=== PATIENT | male | born 1950 | race Caucasian/White ===

== ENCOUNTER → 2017-05-20 15:59 | Outpatient (CLI) | payer MEDICARE, SELFPAY ==
--- NOTE | 2017-05-20 16:07 | RAD_ITS ---
STUDY: X-RAY - ORBITS REASON FOR EXAM: Male, 66 years old. This study is being performed as a clearance examination for exclusion of orbital metal, prior to the performance of an MRI examination. TECHNIQUE: 2 view(s) of the orbits were obtained. COMPARISON: None. FINDINGS: Normal bilateral orbits without a metallic orbital foreign body. Normal visualized facial bones. Normal paranasal sinuses. The soft tissue structures are unremarkable. RAD/Orbits for Foreign Body IMPRESSION: No demonstrated metallic orbital foreign body. The patient is cleared for an MRI examination. Electronically Signed: Geovany Schultz, at 16:37 EST Tel , Service support ,
--- NOTE | 2017-05-20 16:15 | MRI_ITS ---
MR Brain W/O Contrast INDICATION: TREMORS,FALLS,BALANCE ISSUES COMPARISON: None TECHNIQUE: Multiplanar multisequence MRI examination of the brain without contrast. FINDINGS: There is no evidence of restricted diffusion to suggest acute ischemia/infarction. Ventricular system is normal in size and symmetric. Cortical sulci, sylvian fissures, and basal cisterns are well seen. Weinberg-white matter junction is normal. Midline structures and craniocervical junction are normal. The cerebellopontine angles are normal and symmetric. Supra-and infratentorial brain parenchyma demonstrates normal signal. There is no evidence of parenchymal microhemorrhage, mass effect or midline shift, or abnormal extra-axial collection. Flow-voids of the chilkoot of Weeks vascularity are well seen. The paranasal sinuses and mastooid air cells are clear. Sagittal T1 weighted sequence includes the craniocervical junction and demonstrates narrowing of the cervical spinal canal at C2-3, which may be due to chronic degenerative changes at the atlantoaxial articulation, consider further evaluation with MRI of the cervical spine. MRI/Brain without Contrast IMPRESSION: Unremarkable noncontrast MRI examination of the brain. Degenerative changes at the visualized upper cervical spine with questionable cervical spinal canal narrowing at C2-3, consider further evaluation with MRI cervical spine. at 2225 Reported and signed by: Verónica Griffiths MD Electronically Signed: Verónica Griffiths MD at 21:24 EST Tel , Service support ,
== END ==
PROVIDERS: Family Provider Internal Medicine; PCP Internal Medicine; Visit Provider Psychiatry & Neurology Neurology
DX: R25.1 Tremor, unspecified (principal); R29.6 Repeated falls; R26.89 Other abnormalities of gait and mobility
CPT/HCPCS: 70030; 70551

== ENCOUNTER 2017-12-21 21:15 | Emergency (ER) | payer MEDICARE, SELFPAY ==
[2017-12-21 21:15] VITALS: BP 145/98; PULSE 71; RESP 20; TEMP 37.2; O2SAT 93; BMI 19.6
[2017-12-21] MEDS: Mag Hydrox/Al Hydrox/Simeth 30 ML UDC PO (21:44)
[2017-12-21] MEDS: Ondansetron 4 MG/2 ML Vial IV (21:44)
[2017-12-21] MEDS: Morphine 4 MG/ML Syringe IV ×2 (21:44→22:43)
[2017-12-21 21:58] LABS: Absolute Lymphocyte Count 2.79 X10^3/ul (0.83-4.51); Absolute Neutrophil Count 8.2 X10^3/uL (2.0-7.7); Basophil% 0.8 % (0-1); Eosinophils% 3.1 % (0-5); Hematocrit 42.5 % (40-54); Hemoglobin 13.9 g/dl (13.0-16.5); Lymphocyte # 2.79 X10^3/ul (4.0); Mean Corp Hgb Conc 32.7 g/gl (32-36); Mean Corpuscular Hgb 31.2 pg (27.0-32.0); Mean Corpuscular Volume 95.5 fL (80-94); Mean Platelet Vol. 9.2 fl (6.2-12.0); Monocyte# 1.16 X10^3/uL; Monocyte% 9.1 % (0-10); Neutrophil # 8.23 X10^3/uL (2.7-7.7); Neutrophil % 64.8 % (47-70); Platelet Count 258 K/mm3 (150-450); RBC Distribution Width CV 13.5 % (11.6-14.6); RBC Distribution Width SD 47.2 fl (35.1-43.9); Red Blood Count 4.45 M/mm3 (4.6-6.2); White Blood Count 12.7 K/mm3 (4.4-11.0)
[2017-12-21 21:59] LABS: POSITIVE COUNT NO; POSITIVE DIFFERENTIAL NO; POSITIVE MORPHOLOGY NO
[2017-12-21 22:05] LABS: ALB/GLOB Ratio 0.9 RATIO (0.9-2.4); AST(SGOT) 13 U/L (15-37); Alanine Aminotransfer ALT/SGPT 14 U/L (16-61); Albumin, Serum 3.6 g/dL (3.2-5.0); Alkaline Phosphatase 105 U/L (45-117); Anion Gap 5 (5-15); BUN 8 mg/dL (7-18); BUN/Creat Ratio 6.3 RATIO (10-20); Calcium,Total 8.6 mg/dL (8.5-10.1); Chloride 106 mmol/L (98-107); Creatinine, Serum 1.26 mg/dL (0.70-1.30); EST Glomerular Filtration Rate 61 mL/min (>60); Est Glom Filt Rate - Afr Amer 74 mL/min (>60); Estimated Creatinine Clearance 53.65 ml/min; Globulin 3.9 g/dL (2.2-4.2); Glucose 86 mg/dL (74-106); Lipase 249 U/L (73-393); Potassium 3.8 mmol/L (3.5-5.1); Protein, Total 7.5 g/dL (6.4-8.2); Sodium Level 140 mmol/L (136-145)
--- NOTE | 2017-12-21 22:25 | ED.DCSUM_ITS ---
- ER Visit Summary Date of Service: 12/21/17 Chief Complaint: Epigastric pain History of Present Illness: The patient is a 67 M who is complaining of epigastric and left upper quadrant pain. The chief complaints as flank pain but patient's pain is as stated above. He has chronic recurrent epigastric pain. No fever or chills. This pain seems to be somewhat worse. There is no shortness of breath or chest pain. This started 3-4 days ago. No diarrhea. No constipation. He does have a history of bowel surgeries after an inadvertent penetrating trauma to his abdomen. Physical Examination: He appears in some distress Moist mucous membranes, no obvious facial deformity No C-spine tenderness supple neck. Regular rate and rhythm without any obvious murmurs Clear lungs bilaterally speaking in full sentences without any obvious respiratory distress Abdomen soft with epigastric tenderness, some tenderness in the left upper quadrant, no guarding or rebound Moves all extremities without any difficulty or pain. Skin does not show any obvious rashes or lesions, no trauma. Alert oriented ?3 with no gross focal deficit Emergency Department Course and Treatment: Patient has an unremarkable workup including CT of the abdomen and pelvis he is given analgesia and antacids his symptoms improved and be discharged in stable condition. I told him he may need to follow-up with GI. Disposition: [Discharge stable condition Impression: Epigastric pain This note was generated with Check-Cap dictation software. It may contain incorrect words, spelling, and punctuation that were not noted in review of the chart prior to signing ED Disposition - Plan for ED Patient: Disposition: Home or Assisted Living Chief Complaint: Flank Pain Instructions: Abdominal Pain Referrals: Ale Pepe MD [Primary Care Provider] - 3-5 Days
[2017-12-21 22:47] VITALS: BP 158/96; PULSE 75; RESP 15; O2SAT 95
[2017-12-21 23:13] VITALS: BP 145/88; PULSE 80; RESP 16; O2SAT 96
== END 2017-12-21 23:14 | disposition home or self-care (01) ==
PROVIDERS: Emergency Provider Emergency Medicine; Family Provider Internal Medicine; PCP Internal Medicine
DX: R10.13 Epigastric pain (principal); I10 Essential (primary) hypertension; E78.00 Pure hypercholesterolemia, unspecified; K21.9 Gastro-esophageal reflux disease without esophagitis; Z79.899 Other long term (current) drug therapy; Z72.0 Tobacco use
CPT/HCPCS: 74176; 80053; 83690; 84484; 85025; 88307; 96365; 96375; 96376; 99285; A4216; J2405; J3490

== ENCOUNTER → 2018-03-14 12:08 | Outpatient (CLI) | payer MEDICARE, SELFPAY ==
[2018-03-13 16:09] VITALS: BMI 19.6
[2018-03-14 12:14] LABS: Bacteria 0 SEEN /hpf (None Seen); Mucous, Urine 0 SEEN /hpf (<or=2+); Red Blood Cells-Urine 0 SEEN /hpf (0-5); Squamous Epithelial Cells - UA 0 SEEN /hpf (0-5); White Blood Cells 0 SEEN /hpf (0-5)
[2018-03-14 13:14] LABS: AST(SGOT) 11 U/L (15-37); Alanine Aminotransfer ALT/SGPT 14 U/L (16-61); Albumin, Serum 3.6 g/dL (3.2-5.0); Alkaline Phosphatase 110 U/L (45-117); Anion Gap 6 (5-15); BUN 11 mg/dL (7-18); Calcium,Total 8.5 mg/dL (8.5-10.1); Chloride 111 mmol/L (98-107); Cholesterol 163 mg/dL (200); EST Glomerular Filtration Rate 71 mL/min (>60); Est Glom Filt Rate - Afr Amer 86 mL/min (>60); Globulin 3.6 g/dL (2.2-4.2); Glucose 98 mg/dL (74-106); High Density Lipoprotein 38 mg/dL; Potassium 3.9 mmol/L (3.5-5.1); Protein, Total 7.2 g/dL (6.4-8.2); Sodium Level 143 mmol/L (136-145); Triglycerides 174 mg/dL; Very Low Density Lipoprotein 35 mg/dL (5-40)
[2018-03-14 13:41] LABS: Color, Urine Yellow (Yellow); Glucose, Dipstick Normal (Normal); Ketone-Dipstick Negative (Negative); Leukocyte Esterase-Dipstick Negative /ul (Negative); Nitrite-Dipstick Negative (Negative); Occult Blood-Urine Negative /ul (Negative); Protein-Dipstick Negative (Negative); Specific Gravity, Urine 1.015 (1.002-1.030); Urine Bilirubin Dipstick Negative (Negative); Urine Clarity Clear (Clear); Urine Urobilinogen Normal (Normal)
--- OUTSIDE RECORDS SUMMARY | 2018-05-09 10:56 | XMS RPT_ITS ---
:1950 Author Organization OHIP Care Team Providers Name Role Phone Ceferino Pedroza Attending Unavailable Ceferino Pedroza Referring Unavailable Oleghe, Efewongbe Primary Care Unavailable Zane Barbosa SUPPLEMENTAL MANAGER-C Attending Unavailable Oleghe, Efewongbe Referring Unavailable Oleghe, Efewongbe Primary Care Unavailable Zane Barbosa SUPPLEMENTAL MANAGER-C Attending Unavailable Zane Barbosa SUPPLEMENTAL MANAGER-C Referring Unavailable Oleghe, Efewongbe Primary Care Unavailable Ceferino Pedroza Attending Unavailable Oleghe, Efewongbe Primary Care Unavailable Oleghe, Efewongbe Primary Care Unavailable Surendra Cordova Attending Unavailable Oleghe, Efewongbe Attending Unavailable Oleghe, Efewongbe Referring Unavailable Oleghe, Efewongbe Attending Unavailable Oleghe, Efewongbe Referring Unavailable Oleghe, Efewongbe Primary Care Unavailable IMCA Referring Unavailable IMCA Referring Unavailable IMCA Referring Unavailable IMCA Primary Care Unavailable IMCA Referring Unavailable IMCA Primary Care Unavailable SEYMOUR CANCHOLA Admitting Unavailable SEYMOUR CANCHOLA Attending Unavailable SEYMOUR CANCHOLA Referring Unavailable SEYMOUR CANCHOLA Attending Unavailable GEOFF, SEYMOUR Referring Unavailable GEOFF, SEYMOUR Attending Unavailable GEOFF, SEYMOUR Referring Unavailable MAYELA SHELTON (PA) Referring Unavailable KYLEE VALDIVIA (PA) Attending Unavailable GEOFF, SEYMOUR Referring Unavailable GEOFF, SEYMOUR Attending Unavailable GEOFF, SEYMOUR Referring Unavailable GEOFF, SEYMOUR Referring Unavailable PROBLEMS PROBLEMS DATE TYPE CONDITION / CODE ATTENDING STATUS SOURCE 03/13/2018 Unknown I10 - Essential Oleghe, Active Keith (primary) [facility] hypertension / Hospital I10(ICD-10) Repository 03/13/2018 Unknown R35.0 - Frequency Oleghe, Active [facility] of micturition / [facility] R35.0(ICD-10) Hospital Repository 03/13/2018 Unknown Z23 - Encounter for Oleghe, Active [facility] immunization / [facility] Z23(ICD-10) Hospital Repository 08/15/2017 Active Pain in right NA Active [facility] shoulder / [facility] [place] M25.511(ICD-10) Repository 08/15/2017 Active Other chronic pain NA Active [facility] / G89.29(ICD-10) [facility] [place] Repository 08/15/2017 Active Impingement NA Active [facility] syndrome of right [facility] [place] shoulder / Repository M75.41(ICD-10) 07/23/2017 Unknown G62.9 - Kasia, Active [facility] Polyneuropathy, Ceferino S. Community unspecified / Hospital G62.9(ICD-10) Repository 07/23/2017 Unknown R20.0 - Anesthesia Kasia, Active [facility] of skin / [facility] S[facility] Community R20.0(ICD-10) Hospital Repository 07/23/2017 Unknown R20.2 - Paresthesia Kasia, Active [facility] of skin / [facility] R20.2(ICD-10) Hospital Repository 07/05/2017 Active Unspecified SEYMOUR CANCHOLA Active [facility] disorder of Other [place] synovium and Repository tendon, left upper arm / M67.922(ICD-10) 07/01/2017 Active Encounter for other NA Active [facility] preprocedural [facility] [place] examination / Repository Z01.818(ICD-10) 06/24/2017 Active Pain in left NA Active [facility] shoulder / [facility] M25.512(ICD-10) Repository 06/24/2017 Active Unspecified rotator NA Active [facility] cuff tear or [facility] [place] rupture of left Repository shoulder, not specified as traumatic / M75.102(ICD-10) 06/12/2017 Unknown J44.9 - Chronic Barbosa, Zane Active [place] obstructive SUPPLEMENTAL MANAGER-C [facility] pulmonary disease, Hospital unspecified / Repository J44.9(ICD-10) 06/12/2017 Unknown F17.210 - Nicotine Barbosa, Zane Active [facility] dependence, SUPPLEMENTAL MANAGER-C Community cigarettes, Hospital uncomplicated / Repository F17.210(ICD-10) 06/12/2017 Unknown R06.00 - Dyspnea, Barbosa, Zane Active [facility] unspecified / SUPPLEMENTAL MANAGER-C Community R06.00(ICD-10) Hospital Repository 06/10/2017 Active Unknown / SEYMOUR CANCHOLA Active [facility] UNK(Unknown) [facility] [place] Repository 06/10/2017 Active Pain, unspecified / NA Active [facility] R52(ICD-10) [facility] [place] Repository 2017 Unknown R25.1 - Tremor, Kasia, Active [place] unspecified / C[facility]erino S[facility] Community R25.1(ICD-10) Hospital Repository PROCEDURES PROCEDURES No Procedure Records FoundRESULTS RESULTS INTERNAL MEDICINE Observed: 03/14/2018 Status: F Source: [facility] OFFICE VISIT 1:20 PM [facility] REPOS[facility] [address] [place] [address] [place] [address] OFFICE VISIT Date of Service: 03/13/18 MR#: [id number] Acct: [id number] Name: BRIANNA POTTS Diane Rep #: [id number] : 1950 Provider: Ale Pepe MD Age/Sex: 67/M Location: [facility] [place] Status: Signed Intake Vital Signs03/13/18 Body Mass Index (BMI) 19.6 03/13/18 Height 6 ft 03/13/18 Weight: 160 lb Intake Visit Reasons: FU Chief Complaint: follow up Tank Worker Required: No Accompanied by: None Is patient in pain?: Yes (esophagus/acid reflex) Pain scale (1-10): 8 Allergies codeine Allergy (Verified 12/21/17 21:19) Swelling of face and fingers ketorolac tromethamine [From Toradol] Adverse Reaction (Verified 12/21/17 21:19) Nausea oxycodone HCl [From Percocet] Adverse Reaction (Verified 12/21/17 21:19) Upset Stomach sucralfate [From Carafate] Adverse Reaction (Verified 12/21/17 21:19) Nausea tramadol HCl [From Ultram] Adverse Reaction (Verified 01/11/17 11:58) Nausea Medications traZODone [Desyrel] 100 - 200 mg PO QHS PRN 02/10/13 [History Confirmed 06/12/17] Lamotrigine [Lamictal] 150 mg PO QHS 07/08/13 [History Confirmed 06/12/17] Hydrocodone Bitart/Apap 5-325 [Squires 5/325] 1 - 2 tab PO TID PRN 01/11/17 [History Confirmed 06/12/17] Venlafaxine XR [Effexor Xr] 150 mg PO QHS 01/11/17 [History Confirmed 06/12/17] lisinopril 10 mg tablet 10 mg PO DAILY #90 tab 04/05/17 [Rx Confirmed 06/12/17] albuterol sulfate HFA 90 mcg/actuation aerosol inhaler 1 puff INHALATION Q6H PRN #1 inh 06/12/17 [Rx Confirmed 06/12/17] budesonide-formoterol HFA 160 mcg-4.5 mcg/actuation aerosol inhaler 2 puff INHALATION BID #1 inh 06/12/17 [Rx Confirmed 06/12/17] carbidopa ER 25 mg-levodopa 100 mg tablet,extended release 1 tab PO TID tab 06/12/17 [History Confirmed 06/12/17] esomeprazole magnesium 40 mg capsule,delayed release 20 mg PO DAILY #90 cap 06/12/17 [Rx Confirmed 06/12/17] memantine 10 mg tablet 10 mg PO BID 06/12/17 [History Confirmed 06/12/17] propranolol XL 120 mg capsule,extended release 24 hr 120 mg PO QDAY 06/12/17 [History Confirmed 06/12/17] gabapentin 250 mg/5 mL oral solution 800 mg PO TID #1440 ml 02/07/18 [Rx] hydrochlorothiazide 12.5 mg capsule 12.5 mg PO QDAY #90 cap 03/13/18 [Rx Confirmed 03/13/18] [facility] Medical History Bipolar 1 disorder (Chronic) Surgical History H/O abdominal surgery (Acute) History of appendectomy (Acute) History of cervical spinal surgery (Acute) History of rotator cuff surgery (Acute) history of 4 knee surgeries (Acute) history of hand and wrist surgery (Acute) history of three hernia repairs (Acute) Family History Uncle Cancer Father Cancer prostate COPD (chronic obstructive pulmonary disease) Mother COPD (chronic obstructive pulmonary disease) Hypertension Social History Smoking Status: Current every day smoker alcohol intake: never substance use type: does not use what type of physical activity do you participate in: walking frequency: daily HPI HPI Chief Complaint: follow up Details: BRIANNA POTTS, is a 67 M who presents to the office today for follow-up of his chronic medical conditions. He has not been seen here in several months. He is concerned about increased urinary frequency and increased thirst. This is said to have been ongoing for a couple of months. Initially thought to be due to his hydrochlorothiazide however symptoms have persisted even after discontinuing. He denies blood in his urine or pain on urination. He denies any other feeling of unwell. He is also concerned about left fifth toe numbness which has been progressively worsening. In his words he feels his toe will fall off and he will not feel it. He denies any known history of peripheral arterial disease. He however continues to smoke. Blood pressure is slightly elevated during his visit at 148/86 however he is currently only on lisinopril and propranolol after discontinuing his hydrochlorothiazide. He continues to follow-up with neurology due to his history of Parkinson's disease. Patient states that his symptoms are worsening despite medication adjustments. ROS Const Constitutional: No body ache, chills, fatigue, fever(s), frequent falls, headache(s), weight change, sleep problems, change in appetite, snoring, excessive sweating or weakness Eyes Eyes: No blurry vision, change in vision, eye pain or light sensitivity ENT ENT: No headache(s), abnormal hearing, ear pain, tinnitus, nasal congestion, nasal discharge, sore throat or neck pain Resp Respiratory: No snoring, cough, shortness of breath or wheezing Cardio Cardiology: No excessive sweating, chest pain at rest, chest pain with exertion, shortness of breath, dyspnea on exertion, orthopnea, palpitations or lightheadedness Gastro GI: Positive for abdominal pain; no change in bowel habits, diarrhea, constipation, vomiting, nausea/dyspepsia or cramping Musc Musculoskeletal: Positive for numbness; no neck pain, abnormal walking, joint pain, back pain, limited range of motion or tingling Skin Skin: No redness, dry skin, itching, lesions, wounds or rash Neuro Neurology: Positive for numbness; no frequent falls, headache(s), weakness, abnormal hearing, abnormal walking, tingling, abnormal speech, dizziness or memory loss Psych Psychiatric: No change in appetite, No memory loss, No anxiety, No depression, No Thoughts of harming yourself/Others Endo Endocrine: Positive for cold intolerance and increased thirst/drinking; no fatigue, excessive sweating, heat intolerance, increased hunger or flushing Aller/Imm Allergy/Immunologic: No wheezing, itchy eyes, seasonal allergy symptoms or hives [place]/Lymp Hematologic/Lymphatic: No easy bleeding, easy bruising or enlarged lymph nodes Exam Const General: cooperative, no acute distress Orientation: alert, awake, oriented x3 [facility] Head: atraumatic, normal to inspection, normocephalic Ears: hearing grossly normal bilaterally Resp Effort AND Inspection: normal respiratory effort, able to speak in complete sentences Auscultation: Bilateral: Clear to Auscultation Cardio Rate: regular rate Rhythm: regular rhythm Heart Sounds: S1 normal, S2 normal GI Palpation: soft, no hepatosplenomegaly Neuro General: alert, awake, oriented x3, moves all extremities, CN's II-XI intact bilaterally Extrem General: no clubbing, cyanosis or edema Psych Appearance: grossly normal Mental Status: mental status grossly normal Mood: congruent mood Affect: normal affect Immunizations Fluad 2018- 65yr up(PF)45 mcg(15 mcgx3)/0.5 mL intramuscular syringe Performing Provider: Ale Pepe MD Administered by: Rosa Isela Santana on 03/13/18 16:47 Dose Route Admin Location Lot Number Expiration Date [place] [employer] 45 mcg IM Left Deltoid [id number] 10/12/18 02648-482-38 SEQIRUS VIS Given Date VIS Publication Date 03/13/18 11/19/14 Eligibility Eligibility Date Assessment AND Plan 1. Urinary frequency R35.0 Plan Associated with polyuria and polydipsia. No known history of diabetes mellitus. Urinalysis and BMP ordered. Follow-up with results. Orders Orders: 2. Numbness R20.0 Plan Predominantly of his left fifth digit. Chronic, however, said to be worsening. Patient states that he feels like his toe is going to fall off. Change in discoloration noted of his toe however nontender. Patient reports history of occasional rest pain and cold sensation in his lower extremities. Considering his prolonged smoking history peripheral arterial disease/small vessel vasculitis/disease are possibilities. ABIs ordered. Smoking cessation strongly encouraged. Follow- up with results. 3. Essential hypertension I10 Plan Not optimally controlled. Patient self discontinued his hydrochlorothiazide. Compliance encouraged. Lifestyle and dietary modifications recommended Orders Orders: 4. Tobacco use Z72.0 Plan Again smoking cessation was strongly encouraged. He has noted worsening shortness of breath and at his last visit PFT and low-dose CAT scan was ordered however patient is yet to get this done, he was strongly encouraged to. Readdress at next visit. 5. Health care maintenance Z00.00 Plan Flu shot given. This note was generated with [employer] dictation software. It may contain incorrect words, spelling, and punctuation that were not noted in checking the note before signing. Plan Detail Other Orders Orders: Other Medications Refilled: Discontinued: Fluad 65yr up(PF)45 mcg(15 mcgx3)/0.5 mL intr45 mcg (0.5 mL) IM ONCE #1 0RF NS Z23 amuscular syringe (flu vac 2017 [id number])) Discontinued Reason: Office Medication has been Doc umented as given Coding Level of Care Code Off vis,est,level 4 Diagnoses Urinary frequency R35.0 Numbness R20.0 Essential hypertension I10 Hypertension type: essential hypertension Tobacco use Z72.0 Health care maintenance Z00.00 03/14/18 1320 <Electronically signed by Ale Pepe MD> Date Ale Mcdowell Signature: Date (if applicable) CC: COMPREHENSIVE METABOLIC Collected: 03/14/2018 Status: F Source: [place] [place] 12:13 PM [facility] REPOS[facility] Order Comment: Comments: Fasting Comments: Fasting Comments: Fasting TYPE CODE TESTS RESULT OUT OF RANGE REFERENCE UNITS LAB L501.0100 74-106 mg/dL Normal GLU 98 Result Comment: Please note revised GLUCOSE reference range effective 2017. LAB L501.1000 7-18 mg/dL Normal BUN 11 LAB L501.1100 0.70-1.30 mg/dL Normal CREAT,SERUM 1.10 Result Comment: The validity of the calculated GFR AND GFRAA in patients over 70 years has not been determined. Clinical correlation is essential. LAB L501.1110 >60 mL/min Normal EST GFR 71 Result Comment: Non- GFR Calc LAB L501.1115 >60 mL/min Normal EST GFR - AA 86 Result Comment: GFR Calc LAB L501.1300 10-20 RATIO Normal BUN/CRE 10.0 LAB L501.1500 6.4-8.2 g/dL T Normal PROT 7.2 LAB L501.1800 3.2-5.0 g/dL Normal ALB 3.6 LAB L501.1950 2.2-4.2 g/dL Normal GLOB 3.6 LAB L501.2000 0.9-2.4 RATIO Normal A/G 1.0 LAB L501.2200 8.5-10.1 mg/dL CA Normal 8.5 LAB L501.4100 15-37 U/L Low AST 11 LAB L501.4305 45-117 U/L Normal ALK P 110 LAB L501.4405 16-61 U/L Low ALT 14 LAB L501.4600 0.20-1.00 mg/dL T Normal BILI 0.20 LAB L501.5300 136-145 mmol/L NA Normal 143 LAB L501.5600 3.5-5.1 mmol/L K Normal 3.9 LAB L501.5900 98-107 mmol/L High CL 111 LAB L501.6100 21.0-32.0 mmol/L Normal CO2 26.0 LAB L501.6200 5-15 Normal GAP 6 Performed By: #### L500.4050, L500.4100 #### [facility] [address] [facility]. [place], [place], [id number] LIPID PROFILE Collected: 03/14/2018 Status: F Source: [place] 12:13 PM [facility] RE[facility] Order Comment: Comments: Fasting Comments: Fasting Comments: Fasting TYPE CODE TESTS RESULT OUT OF RANGE REFERENCE UNITS LAB L501.4900 200 mg/dL Normal CHOL 163 Result Comment: <200 mg/dL Desirable 200-240 mg/dL Borderline >240 mg/dL High Risk LAB L501.5000 mg/dL Normal TRIG 174 Result Comment: The drugs N-Acetylcysteine and Metamizole may falsely depress this assay. Serum Triglycerides Reference Interval Normal <150 mg/dL Borderline high 150 - 199 mg/dL High 200 - 499 mg/dL Very High > or = 500 mg/dL LAB L501.6400 mg/dL Low HDL 38 Result Comment: The drugs N-Acetylcysteine and Metamizole may falsely depress this assay. Reference Range HDL <40 mg/dL Low HDL Cholesterol HDL >or= 60 mg/dL High HDL Cholesterol LAB L501.6500 0-130 mg/dL Normal LDL 90 LAB L501.6600 5-40 mg/dL Normal VLDL 35 Performed By: #### L500.4050, L500.4100 #### [facility] [address] [facility]. [place], [place], [address] URINALYSIS, COMPLETE Collected: 03/14/2018 Status: F Source: [place] 12:13 PM [facility] Order Comment: Comments: Fasting How was Urine Obtained? MANAGER UTILIZATION TO SPECIFY TYPE CODE TESTS RESULT OUT OF RANGE REFERENCE UNITS LAB L400.3000 Yellow COLOR Normal Yellow LAB L400.3050 Clear Normal CLARITY Clear LAB L400.3200 Normal mg/dl Normal GLUCOSE, UR Normal LAB L400.3300 Negative mg/dL Normal BILIRUBIN URINE Negative LAB L400.3400 Negative mg/dl Normal KETONE UR Negative LAB L400.3465 1.002-1.030 Normal SP.GR. DIPSTX 1.015 LAB L400.3550 5.0 - 8.0 pH UR Normal 5.0 LAB L400.3600 Negative mg/dl PROT Normal DIPSTX Negative LAB L400.3700 Normal mg/dl Normal UROBILI Normal LAB L400.3750 Negative Normal NITRITE UR Negative LAB L400.3780 Negative /ul Normal OCCULT BLOOD-UR Negative LAB L400.3800 Negative /ul LEUK Normal ESTERASE Negative LAB L400.4050 0-5 /hpf WBC 0 Normal SEEN LAB L400.4100 0-5 /hpf 0 Normal RBC-UA SEEN LAB L400.4150 0-5 /hpf SQUAM 0 Normal EPI SEEN LAB L400.4300 None Seen /hpf 0 Normal BACTERIA SEEN LAB L400.4350 <or=2+ /hpf 0 Normal MUCUS, URINE SEEN Performed By: #### L400.0001 #### [facility] [address] [facility] [place], [address] EMERGENCY DEPARTMENT Observed: 12/21/2017 Status: F Source: [place] SUMMARY 11:51 PM [facility] Medical Records Department [address] [place] [address] Emergency Department Summary 12/21/17 2223 MR#: [id number] Acct: [id number] Name: BRIANNA POTTS Rep #: [id number] : 1950 67 From: Surendra Cordova MD PCP: Ale Pepe MD Status: DEP ER - ER Visit Summary Date of Service: 12/21/17 Chief Complaint: Epigastric pain History of Present Illness: The patient is a 67 M who is complaining of epigastric and left upper quadrant pain. The chief complaints as flank pain but patient's pain is as stated above. He has chronic recurrent epigastric pain. No fever or chills. This pain seems to be somewhat worse. There is no shortness of breath or chest pain. This started 3-4 days ago. No diarrhea. No constipation. He does have a history of bowel surgeries after an inadvertent penetrating trauma to his abdomen. Physical Examination: He appears in some distress Moist mucous membranes, no obvious facial deformity No C-spine tenderness supple neck. Regular rate and rhythm without any obvious murmurs Clear lungs bilaterally speaking in full sentences without any obvious respiratory distress Abdomen soft with epigastric tenderness, some tenderness in the left upper quadrant, no guarding or rebound Moves all extremities without any difficulty or pain. Skin does not show any obvious rashes or lesions, no trauma. Alert oriented 3 with no gross focal deficit Emergency Department Course and Treatment: Patient has an unremarkable workup including CT of the abdomen and pelvis he is given analgesia and antacids his symptoms improved and be discharged in stable condition. I told him he may need to follow-up with GI. Disposition: [Discharge stable condition Impression: Epigastric pain This note was generated with [employer] App dictation software. It may contain incorrect words, spelling, and punctuation that were not noted in review of the chart prior to signing ED Disposition - Plan for ED Patient: Disposition: Home or Assisted Living Chief Complaint: Flank Pain Instructions: Abdominal Pain Referrals: Ale Pepe MD [Primary Care Provider] - 3-5 Days What to do if you have Problems For any increased pain, shortness of breath, bleeding, nausea or vomiting, chest pain, or any unexpected problems, contact your Primary Care Provider. Call [facility] ([phone]) or report to the closest Emergency Room. Call 911 if necessary. 12/21/17 0335 <Electronically signed by Surendra Cordova MD> Date Surendra Cordova MD Cosigner Signature (If Indicated): Date CC: Ale Pepe MD ABDOMEN/PELVIS WITHOUT Observed: 12/21/2017 Status: F Source: [place] CONT 9:29 PM [facility] Imaging Services [address] [place] [address] Abdomen/Pelvis without Cont MR#: [id number] Acct: [id number] Name: BRIANNA POTTS Rep #: [id number] : 1950 M 67 From: Valeriano Verma MD PCP: Ale Pepe MD Status: REG ER Study: Abdomen/Pelvis without Cont Date of Exam: 12/21/17 Exam# [id number] Ordering Dr: Surendra Cordova MD STUDY: CT ABDOMEN AND PELVIS WITHOUT CONTRAST REASON FOR EXAM: Male, 67 years old. Left flank pain which extends around to the abdomen. Rectal bleeding. History of prostate cancer with prostatectomy and radiation therapy in 1991. History of throat cancer and Parkinson's disease. History of previous bowel surgery due to a nail in the bowel. RADIATION DOSAGE (If Supplied By Facility): CTDIvol = ( 7.02 ) mGy, DLP = ( 366.33 ) mGycm TECHNIQUE: Transaxial images were obtained from the dome of the diaphragm to the symphysis pubis without oral contrast, and without intravenous contrast. Sagittal and coronal images were reconstructed. Individualized dose optimization techniques were used for this CT. COMPARISON: 01/10/2017. FINDINGS: There are areas of chronic atelectasis or fibrosis in the visualized lung bases bilaterally. The visualized portions of the heart are within normal limits. Normal liver. Normal gallbladder and extrahepatic biliary system. Normal spleen. Normal pancreas. Normal bilateral adrenal glands. There are multiple right renal cortical cysts, ranging up to 3.8 cm. Otherwise, normal right kidney. There are multiple left renal cortical cysts, ranging up to 3 cm. Otherwise, normal left kidney. There is a moderately large hiatal hernia. There are postsurgical changes in small bowel. There is dilatation of bowel in the region of the anastomosis and there is also dilatation of the more proximal small bowel loops, ranging up to 3.5 cm. Similar appearance was also present on previous exam, at which time there was demonstration of adequate oral contrast passage through the entire small bowel, no evidence for high-grade bowel obstruction. Findings probably represent a chronic low-grade bowel obstruction at the anastomotic site. Normal colon. There is non-visualization of the appendix. There is no evidence for appendicitis. There is mild atherosclerotic calcification of the abdominal aorta, without a demonstrated aneurysm. There is an IVC filter in place. Normal retroperitoneum. There is a 2 cm posterior urinary bladder diverticulum. Contrary to the given history of prior prostatectomy, the patient does have a prostate gland and it indents the base of the urinary bladder. Normal abdominal wall. There are multilevel degenerative changes of the visualized lumbar spine. CT/Abdomen/Pelvis without Cont IMPRESSION: IVC filter. Previous small bowel surgery. There is evidence for chronic low-grade bowel obstruction at the anastomotic site, stable in appearance. No evidence for high-grade bowel obstruction or ileus. Bilateral renal cysts. No demonstrated urinary calculi or hydronephrosis. Urinary bladder diverticulum. Mildly enlarged prostate gland. Moderately large hiatal hernia. Atherosclerosis. No evidence for acute pathology. Electronically Signed: Valeriano Verma MD at 22:46 EDT , Service support , CC: Ale Pepe MD; Surendra Cordova MD 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: Signed CBC W/DIFF, AUTOMATED Collected: 12/21/2017 Status: F Source: [place] 9:20 PM [facility] TYPE CODE TESTS RESULT OUT OF RANGE REFERENCE UNITS LAB L100.1000 4.4-11.0 K/mm3 High WBC 12.7 LAB L100.1200 4.6-6.2 M/mm3 Low RBC 4.45 LAB L100.1300 13.0-16.5 g/dl Normal HGB 13.9 LAB L100.1400 40-54 % Normal HCT 42.5 LAB L100.1500 80-94 fL High MCV 95.5 LAB L100.1600 27.0-32.0 pg Normal MCH 31.2 LAB L100.1700 32-36 g/gl Normal MCHC 32.7 LAB L100.1810 11.6-14.6 % Normal RDW CV 13.5 LAB L100.1820 35.1-43.9 fl High RDW SD 47.2 LAB L100.1900 150-450 K/mm3 Normal PLT 258 LAB L100.2000 6.2-12.0 fl Normal MPV 9.2 LAB L100.2100 47-70 % Normal NEUT% 64.8 LAB L100.2200 19-41 % Normal LY% 22.0 LAB L100.2300 0-10 % Normal MONO% 9.1 LAB L100.2400 0-5 % Normal EO% 3.1 LAB L100.2500 0-1 % Normal BASO% 0.8 LAB L100.2550 0.0-0.9 % Normal IM GRAN % 0.200 Result Comment: IG% - Immature Granulocytes (promyelocytes, myelocytes and metamyelocytes) > 1% indicates that a LEFT SHIFT is Present. LAB L100.2620 2.0-7.7 X10 3/uL High Absolute Neut 8.2 LAB L100.2720 0.83-4.51 X10 3/ul Normal Absolute Lymph 2.79 Performed By: #### L100.0100 #### [facility] [address] [place], [address] COMPREHENSIVE METABOLIC Collected: 12/21/2017 Status: F Source: [facility] 9:20 PM [facility] REPOSITORY TYPE CODE TESTS RESULT OUT OF RANGE REFERENCE UNITS LAB L501.0100 74-106 mg/dL Normal GLU 86 Result Comment: Please note revised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 Hydrochlorothiazide 12.5 mg capsule Take 12.5 mg by mouth once daily. lisinopril (ZESTRIL, PRINIVIL) 10 mg tablet Take 10 mg by mouth once daily. propranolol (INDERAL) 20 mg tablet TAKE 1 TABLET BY MOUTH TWICE A DAY albuterol HFA (VENTOLIN HFA) 90 mcg/actuation inhaler Inhale 2 Puffs as instructed every 4 hours as needed. HYDROcodone-acetaminophen (NORCO) 5-325 mg per tablet Take 1 tablet by mouth every 4 hours as needed. esomeprazole (NEXIUM) 20 mg capsule TAKE 1 CAPSULE BY MOUTH DAILY BEFORE BREAKFAST. gabapentin (NEURONTIN) 250 mg/5 mL solution TAKE 16 ML BY MOUTH THREE TIMES DAILY. carbidopa-levodopa CR (SINEMET CR) 25-100 mg per tablet Take 1 tablet by mouth three times daily. amLODIPine (NORVASC) 5 mg tablet Take 1 tablet by mouth once daily. traZODone 100 mg tablet Take 2 tablets by mouth daily at bedtime. venlafaxine XR (EFFEXOR XR) 150 mg 24 hr capsule Take 1 capsule by mouth once daily. lamoTRIgine (LAMICTAL) 100 mg tablet Take 1 tablet by mouth daily at bedtime. oxyCODONE-acetaminophen (PERCOCET) 5-325 mg tablet Take 1 tablet by mouth every 4 hours as needed for up to 7 days. No current facility-administered medications for this visit. Allergies: Carafate [Sucralfate]; Codeine; Ketorolac; Tramadol ROS: General (negative for fatigue, malaise, weight loss/gain) HEENT (negative for headache, earache, recent vision changes, sinus pain, sore throat) Respiratory (no recent shortness of breath, hemoptysis) CV (negative for chest tightness, palpitations) Musculoskeletal (see HPI) Psych (no depression, anxiety) This note was partially generated using [employer] App voice recognition system, and there may be some incorrect words, spellings, and punctuation that were not noted in checking the note before saving. Seymour Canchola MD Referring Provider: SEYMOUR CANCHOLA [[id number]] Allergies As of Date: 08/15/2017 Noted Allergy Reaction CARAFATE (SUCRALFATE) 10/25/2005 8 - GI Upset CODEINE 08/28/2002 Comments: swell up and itch KETOROLAC 08/28/2002 8 - GI Upset Comments: Nausea, vomitting TRAMADOL 12/15/2004 8 - GI Upset Comments: nausea AND vomitting Date Reviewed: 08/15/2017 Reviewed by: Awilda Shi Ma - Fully Assessed Reason for Visit: Post Op [174] Cmt: 5 week 6 days post op left shoulder arthroscopy with biceps tenotomy, SAD and rotator cuff debridement Primary Visit Diagnosis:Chronic right shoulder pain [M25.511, G89.29] Other Visit Diagnosis:Impingement syndrome of right shoulder [M75.41] Order(s):XR SHOULDER [id number] AP/TRUE AP RT [[id number]] Order #: [id number] FUTURE [] oxyCODONE-acetaminophen (PERCOCET) 5-325 mg tabletTake 1 tablet by mouth every 4 hours as needed for up to 7 days.Disp: 40 tabletRfl: 0 [] betamethasone acetate-betamethasone sodium phosphate 6 mg, bupivacaine (PF) 0.25 % (2.5 mg/mL) 12.5 mgDisp: Rfl: Prescriptions as of 08/15/2017 Sig: HYDROCHLOROTHIAZIDE 12.5 MG C* Take 12.5 mg by mouth once da* LISINOPRIL 10 MG TABLET Take 10 mg by mouth once noy* PROPRANOLOL 20 MG TABLET TAKE 1 TABLET BY MOUTH TWICE * ALBUTEROL SULFATE HFA 90 MCG/* Inhale 2 Puffs as instructed * HYDROCODONE 5 MG-ACETAMINOPHE* Take 1 tablet by mouth every * ESOMEPRAZOLE MAGNESIUM 20 MG * TAKE 1 CAPSULE BY MOUTH DAILY* GABAPENTIN 250 MG/5 ML ORAL S* TAKE 16 ML BY MOUTH THREE ANAMARIA* CARBIDOPA ER 25 MG-LEVODOPA 1* Take 1 tablet by mouth three * AMLODIPINE 5 MG TABLET Take 1 tablet by mouth once d* TRAZODONE 100 MG TABLET Take 2 tablets by mouth daily* VENLAFAXINE ER 150 MG CAPSULE* Take 1 capsule by mouth once * LAMOTRIGINE 100 MG TABLET Take 1 tablet by mouth daily * OXYCODONE-ACETAMINOPHEN 5 MG-* Take 1 tablet by mouth every * Problem List As Of Date 08/15/2017 Noted Resolved Phlebitis and thrombophlebitis of femoral vein *INVALID FOR*06/28/2015 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 Major depressive disorder, single episode, unsp*INVALID FOR* More... Other and unspecified hyperlipidemia [E78.5] INVALID FOR*05/27/2013 More... Unspecified sinusitis (chronic) [J32.9] INVALID FOR*07/02/2017 Inguinal hernia without mention of obstruction *INVALID FOR*05/27/2013 Lesion of radial nerve [G56.30] INVALID FOR*05/27/2013 NEURALGIA INGUINAL [G57.90] INVALID FOR*07/02/2017 Esophageal reflux [K21.9] INVALID FOR* More... Carpal tunnel syndrome [G56.00] INVALID FOR*07/02/2017 Other mononeuritis of upper limb [G56.80] INVALID FOR*05/27/2013 Thoracic or lumbosacral neuritis or radiculitis*INVALID FOR*05/27/2013 PAIN NECK [M54.2] INVALID FOR*05/27/2013 Rash and other nonspecific skin eruption [R21] INVALID FOR*05/27/2013 Injury to radial nerve [S54.20XA] INVALID FOR*05/27/2013 Injury to median nerve [S54.10XA] INVALID FOR*05/27/2013 Late effect of tendon injury [KAI5751] INVALID FOR*05/27/2013 Contracture of tendon (sheath) [M62.40] INVALID FOR*05/27/2013 Contracture of hand joint [M24.549] INVALID FOR*05/27/2013 Family history of malignant neoplasm of prostat*INVALID FOR*06/28/2015 Patellar Tendinitis [M76.50] INVALID FOR*06/14/2009 Tobacco use disorder [F17.200] INVALID FOR*05/27/2013 Tremor [R25.1] INVALID FOR*05/27/2013 More... Neuropathy [G62.9] INVALID FOR*05/27/2013 Rotator cuff (capsule) sprain [S43.429A] INVALID FOR*05/27/2013 Memory loss [R41.3] INVALID FOR* More... 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 Hyperlipidemia [E78.5] INVALID FOR* More... Parkinson's disease (HCC) [G20] INVALID FOR* More... Right shoulder pain [M25.511] INVALID FOR*07/02/2017 Tendonitis of shoulder, right [M75.81] INVALID FOR*07/02/2017 Rotator cuff tear, right [M75.101] INVALID FOR*07/02/2017 Lumbar spondylosis [M47.816] INVALID FOR* DDD (degenerative disc disease), lumbar [M51.36]INVALID FOR* Suicide attempt (HCC) [T14.91XA] INVALID FOR* More... Fistula [L98.8] INVALID FOR*07/02/2017 More... SUMMARY [V999.95] INVALID FOR*07/01/2017 More... Abdominal pain [R10.9] INVALID FOR*07/02/2017 More... Hospital discharge follow-up [Z09] INVALID FOR*07/02/2017 More... UTI (lower urinary tract infection) [N39.0] INVALID FOR*07/02/2017 More... Lumbago [M54.5] INVALID FOR* Hypertension [I10] INVALID FOR* More... Rib pain [R07.81] INVALID FOR*07/02/2017 Chronic pain [G89.29] INVALID FOR* Trigger ring finger of left hand [M65.342] INVALID FOR* Spinal stenosis in cervical region [M48.02] INVALID FOR* COPD (chronic obstructive pulmonary disease) (H*INVALID FOR* RLQ abdominal pain [R10.31] INVALID FOR*07/02/2017 Biceps tendinopathy, left [M67.922] INVALID FOR* More... Factor 5 Leiden mutation, heterozygous (HCC) [D*INVALID FOR* Prescriptions ordered this encounter Disp Refills Start End OXYCODONE-ACETAMINOPHEN 5 MG-325 MG * 40 t* 0 08/15/2017 08/22/2017 Class: Print RX Route: ORAL Sig: Take 1 tablet by mouth every 4 hours as needed for up to 7 days. 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 ASSESSMENT: M67.922 Biceps tendinopathy, left Comment: Added automatically from request for surgery [id number] SUMMARY/PLAN: Patient presents 1 week and 3 days s/p left shoulder arthroscopy with biceps tenotomy and SAD. He is doing well, felt a pop in his left shoulder while opening a jar 3 days ago. Pain in shoulder is a 7/10 aching that radiates into his bicep area, bicep is cramping. He is having a difficult time finding a comfortable position to sleep. Is seeing Dr. Mckoy for right shoulder/ neck pains. We will remove his sutures today, gentle stretching exercises were demonstrated to patient, wear sling only as needed. We will see him back in 5 weeks. Exam: Patient arrives in sling, incision sites are well approximated without erythema, discharge or drainage. No ecchymosis of the shoulder or bicep area. External rotation to 50*, forward elevation to 130*, neurologically intact. Imaging: deferred tday Mr. Brianna Potts was advised as to contrast therapies and/or to take analgesics/anti-inflammatories as needed and all contraindications were reviewed. Supporting Information Below: Medications: Current Outpatient Prescriptions: Hydrochlorothiazide 12.5 mg capsule Take 12.5 mg by mouth once daily. lisinopril (ZESTRIL, PRINIVIL) 10 mg tablet Take 10 mg by mouth once daily. propranolol (INDERAL) 20 mg tablet TAKE 1 TABLET BY MOUTH TWICE A DAY albuterol HFA (VENTOLIN HFA) 90 mcg/actuation inhaler Inhale 2 Puffs as instructed every 4 hours as needed. HYDROcodone-acetaminophen (NORCO) 5-325 mg per tablet Take 1 tablet by mouth every 4 hours as needed. esomeprazole (NEXIUM) 20 mg capsule TAKE 1 CAPSULE BY MOUTH DAILY BEFORE BREAKFAST. gabapentin (NEURONTIN) 250 mg/5 mL solution TAKE 16 ML BY MOUTH THREE TIMES DAILY. carbidopa-levodopa CR (SINEMET CR) 25-100 mg per tablet Take 1 tablet by mouth three times daily. amLODIPine (NORVASC) 5 mg tablet Take 1 tablet by mouth once daily. traZODone 100 mg tablet Take 2 tablets by mouth daily at bedtime. venlafaxine XR (EFFEXOR XR) 150 mg 24 hr capsule Take 1 capsule by mouth once daily. lamoTRIgine (LAMICTAL) 100 mg tablet Take 1 tablet by mouth daily at bedtime. oxyCODONE-acetaminophen (PERCOCET) 5-325 mg tablet Take 1 tablet by mouth every 6 hours as needed for Pain for up to 7 days. No current facility-administered medications for this visit. Allergies: Carafate [Sucralfate]; Codeine; Ketorolac; Tramadol This note was partially generated using [employer] voice recognition system, and there may be some incorrect words, spellings, and punctuation that were not noted in checking the note before saving. JULIET Cruz Observed: 07/15/2017 Status: COMPLETED Source: [place] 10:30 AM [facility] REPOSITORY Office Visit (ORTHWS) BRIANNA [id number]) 1950 [place] Date Time Provider Department 07/15/17 10:30 AM KYLEE VALDIVIA (PA) During your visit today, we recorded the following information about you: Awilda Shi Joann 07/15/2017 10:41 AM Signed AMB ROOMING INTAKE FLOWSHEET DATA Risk Screening Do you have concerns about personal safety or safety in the home?: No Pain Pain Score: 7/10 Pain Location: Shoulder-Left Description: Sharp Duration Amount of Time: (post op) Frequency: Continuous Intervention: Medication Patient here today for 1 week 3 days post op left shoulder arthroscopy with biceps tenotomy SAD and rotator cuff debridement. Patient states he tried to open a jar and felt a pop in his left shoulder this past Saturday. Also, complaining of right shoulder pain. States he had an injection on the right shoulder last by Dr. Mckoy. Would like to to have refill of percocet. Kylee Valdivia PA-C 07/15/2017 10:41 AM Signed Kylee Valdivia PA-C Department of Orthopaedics Orthopa[facility]ics [address] [place] [address] Dept: [phone] Dept July 15, 2017 CHIEF COMPLAINT: Post Op (1 week 3 days post op left shoulder arthroscopy with biceps tenotomy SAD and rotator cuff debridement). ASSESSMENT: M67.922 Biceps tendinopathy, left Comment: Added automatically from request for surgery [id number] SUMMARY/PLAN: Patient presents 1 week and 3 days s/p left shoulder arthroscopy with biceps tenotomy and SAD. He is doing well, felt a pop in his left shoulder while opening a jar 3 days ago. Pain in shoulder is a 7/10 aching that radiates into his bicep area, bicep is cramping. He is having a difficult time finding a comfortable position to sleep. Is seeing Dr. Mckoy for right shoulder/ neck pains. We will remove his sutures today, gentle stretching exercises were demonstrated to patient, wear sling only as needed. We will see him back in 5 weeks. Exam: Patient arrives in sling, incision sites are well approximated without erythema, discharge or drainage. No ecchymosis of the shoulder or bicep area. External rotation to 50*, forward elevation to 130*, neurologically intact. Imaging: deferred tday Mr. Brianna Potts was advised as to contrast therapies and/or to take analgesics/anti-inflammatories as needed and all contraindications were reviewed. Supporting Information Below: Medications: Current Outpatient Prescriptions: Hydrochlorothiazide 12.5 mg capsule Take 12.5 mg by mouth once daily. lisinopril (ZESTRIL, PRINIVIL) 10 mg tablet Take 10 mg by mouth once daily. propranolol (INDERAL) 20 mg tablet TAKE 1 TABLET BY MOUTH TWICE A DAY albuterol HFA (VENTOLIN HFA) 90 mcg/actuation inhaler Inhale 2 Puffs as instructed every 4 hours as needed. HYDROcodone-acetaminophen (NORCO) 5-325 mg per tablet Take 1 tablet by mouth every 4 hours as needed. esomeprazole (NEXIUM) 20 mg capsule TAKE 1 CAPSULE BY MOUTH DAILY BEFORE BREAKFAST. gabapentin (NEURONTIN) 250 mg/5 mL solution TAKE 16 ML BY MOUTH THREE TIMES DAILY. carbidopa-levodopa CR (SINEMET CR) 25-100 mg per tablet Take 1 tablet by mouth three times daily. amLODIPine (NORVASC) 5 mg tablet Take 1 tablet by mouth once daily. traZODone 100 mg tablet Take 2 tablets by mouth daily at bedtime. venlafaxine XR (EFFEXOR XR) 150 mg 24 hr capsule Take 1 capsule by mouth once daily. lamoTRIgine (LAMICTAL) 100 mg tablet Take 1 tablet by mouth daily at bedtime. oxyCODONE-acetaminophen (PERCOCET) 5-325 mg tablet Take 1 tablet by mouth every 6 hours as needed for Pain for up to 7 days. No current facility-administered medications for this visit. Allergies: Carafate [Sucralfate]; Codeine; Ketorolac; Tramadol This note was partially generated using [employer] voice recognition system, and there may be some incorrect words, spellings, and punctuation that were not noted in checking the note before saving. Kylee Valdivia PA-C Referring Provider: SEYMOUR CANCHOLA [[id number]] Allergies As of Date: 07/15/2017 Noted Allergy Reaction CARAFATE (SUCRALFATE) 10/25/2005 8 - GI Upset CODEINE 08/28/2002 Comments: swell up and itch KETOROLAC 08/28/2002 8 - GI Upset Comments: Nausea, vomitting TRAMADOL 12/15/2004 8 - GI Upset Comments: nausea AND vomitting Date Reviewed: 07/15/2017 Reviewed by: Awilda Shi Ma - Fully Assessed Reason for Visit: Post Op [174] Cmt: 1 week 3 days post op left shoulder arthroscopy with biceps tenotomy SAD and rotator cuff debridement Visit Diagnosis:Biceps tendinopathy, left [M67.922] Comment:Added automatically from request for surgery [id number] Order(s):oxyCODONE-acetaminophen (PERCOCET) 5-325 mg tabletTake 1 tablet by mouth every 6 hours as needed for Pain for up to 7 days.Disp: 30 tabletRfl: 0 Prescriptions as of 07/15/2017 Sig: HYDROCHLOROTHIAZIDE 12.5 MG C* Take 12.5 mg by mouth once da* LISINOPRIL 10 MG TABLET Take 10 mg by mouth once noy* PROPRANOLOL 20 MG TABLET TAKE 1 TABLET BY MOUTH TWICE * ALBUTEROL SULFATE HFA 90 MCG/* Inhale 2 Puffs as instructed * HYDROCODONE 5 MG-ACETAMINOPHE* Take 1 tablet by mouth every * ESOMEPRAZOLE MAGNESIUM 20 MG * TAKE 1 CAPSULE BY MOUTH DAILY* GABAPENTIN 250 MG/5 ML ORAL S* TAKE 16 ML BY MOUTH THREE ANAMARIA* CARBIDOPA ER 25 MG-LEVODOPA 1* Take 1 tablet by mouth three * AMLODIPINE 5 MG TABLET Take 1 tablet by mouth once d* TRAZODONE 100 MG TABLET Take 2 tablets by mouth daily* VENLAFAXINE ER 150 MG CAPSULE* Take 1 capsule by mouth once * LAMOTRIGINE 100 MG TABLET Take 1 tablet by mouth daily * OXYCODONE-ACETAMINOPHEN 5 MG-* Take 1 tablet by mouth every * Problem List As Of Date 07/15/2017 Noted Resolved Phlebitis and thrombophlebitis of femoral vein *INVALID FOR*06/28/2015 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 Major depressive disorder, single episode, unsp*INVALID FOR* More... Other and unspecified hyperlipidemia [E78.5] INVALID FOR*05/27/2013 More... Unspecified sinusitis (chronic) [J32.9] INVALID FOR*07/02/2017 Inguinal hernia without mention of obstruction *INVALID FOR*05/27/2013 Lesion of radial nerve [G56.30] INVALID FOR*05/27/2013 NEURALGIA INGUINAL [G57.90] INVALID FOR*07/02/2017 Esophageal reflux [K21.9] INVALID FOR* More... Carpal tunnel syndrome [G56.00] INVALID FOR*07/02/2017 Other mononeuritis of upper limb [G56.80] INVALID FOR*05/27/2013 Thoracic or lumbosacral neuritis or radiculitis*INVALID FOR*05/27/2013 PAIN NECK [M54.2] INVALID FOR*05/27/2013 Rash and other nonspecific skin eruption [R21] INVALID FOR*05/27/2013 Injury to radial nerve [S54.20XA] INVALID FOR*05/27/2013 Injury to median nerve [S54.10XA] INVALID FOR*05/27/2013 Late effect of tendon injury [CVW9266] INVALID FOR*05/27/2013 Contracture of tendon (sheath) [M62.40] INVALID FOR*05/27/2013 Contracture of hand joint [M24.549] INVALID FOR*05/27/2013 Family history of malignant neoplasm of prostat*INVALID FOR*06/28/2015 Patellar Tendinitis [M76.50] INVALID FOR*06/14/2009 Tobacco use disorder [F17.200] INVALID FOR*05/27/2013 Tremor [R25.1] INVALID FOR*05/27/2013 More... Neuropathy [G62.9] INVALID FOR*05/27/2013 Rotator cuff (capsule) sprain [S43.429A] INVALID FOR*05/27/2013 Memory loss [R41.3] INVALID FOR* More... 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 Hyperlipidemia [E78.5] INVALID FOR* More... Parkinson's disease (HCC) [G20] INVALID FOR* More... Right shoulder pain [M25.511] INVALID FOR*07/02/2017 Tendonitis of shoulder, right [M75.81] INVALID FOR*07/02/2017 Rotator cuff tear, right [M75.101] INVALID FOR*07/02/2017 Lumbar spondylosis [M47.816] INVALID FOR* DDD (degenerative disc disease), lumbar [M51.36]INVALID FOR* Suicide attempt (HCC) [T14.91XA] INVALID FOR* More... Fistula [L98.8] INVALID FOR*07/02/2017 More... SUMMARY [V999.95] INVALID FOR*07/01/2017 More... Abdominal pain [R10.9] INVALID FOR*07/02/2017 More... Hospital discharge follow-up [Z09] INVALID FOR*07/02/2017 More... UTI (lower urinary tract infection) [N39.0] INVALID FOR*07/02/2017 More... Lumbago [M54.5] INVALID FOR* Hypertension [I10] INVALID FOR* More... Rib pain [R07.81] INVALID FOR*07/02/2017 Chronic pain [G89.29] INVALID FOR* Trigger ring finger of left hand [M65.342] INVALID FOR* Spinal stenosis in cervical region [M48.02] INVALID FOR* COPD (chronic obstructive pulmonary disease) (H*INVALID FOR* RLQ abdominal pain [R10.31] INVALID FOR*07/02/2017 Biceps tendinopathy, left [M67.922] INVALID FOR* More... Factor 5 Leiden mutation, heterozygous (HCC) [D*INVALID FOR* Prescriptions ordered this encounter Disp Refills Start End OXYCODONE-ACETAMINOPHEN 5 MG-325 MG * 30 t* 0 07/15/2017 07/22/2017 Class: Print RX Route: ORAL Sig: Take 1 tablet by mouth every 6 hours as needed for Pain for up to 7 days. Medications Discontinued During This Encounter oxyCODONE-acetaminophen (PERCOCET) 5* 40 t* 0 07/05/2017 07/15/2017 Class: Print RX Cmt: Patient had orthopedic surgery on 07/05/17, and will require greater than 30 MEDD to treat post operative pain (ICD-10 code G89.18). Route: ORAL Sig: Take 1 tablet by mouth every 4 hours as needed for Pain for up to 7 days. Earliest Fill Date: 07/05/17 Disc: Reason for discontinue is not on file. Encounter Status:Closed by KYLEE VALDIVIA PA-C on 07/15/17 PROGRESS Observed: 07/15/2017 Status: COMPLETED Source: [place] 9:44 AM [facility] REPOSITORY HNO ID: [id number] Author: Awilda Shi Ma Service: (none) Author Type: (none) Type: Progress Notes Filed: 07/15/2017 10:41 AM Note Text: AMB ROOMING INTAKE FLOWSHEET DATA Risk Screening Do you have concerns about personal safety or safety in the home?: No Pain Pain Score: 7/10 Pain Location: Shoulder-Left Description: Sharp Duration Amount of Time: (post op) Frequency: Continuous Intervention: Medication Patient here today for 1 week 3 days post op left shoulder arthroscopy with biceps tenotomy SAD and rotator cuff debridement. Patient states he tried to open a jar and felt a pop in his left shoulder this past Saturday. Also, complaining of right shoulder pain. States he had an injection on the right shoulder last by Dr. Mckoy. Would like to to have refill of percocet. PT ED Observed: 07/05/2017 Status: COMPLETED Source: [place] 4:15 PM [facility] REPOSITORY HNO ID: [id number] Author: Blanca (Rn) CORY Waters Service: Nursing Author Type: Registered Nurse Type: Patient Education Filed: 07/05/2017 4:30 PM Note Text: POST OP LEARNING RESPONSE INSTRUCTION PROVIDED TO: Patient METHOD OF INSTRUCTION: Individual instruction PATIENT / FAMILY RESPONSE: Verbalizes understanding of: POST-OPERATIVE INSTRUCTIONS-Correct actions to take to reduce postoperative complications FOLLOW-UP PLAN: Complete - No need for follow-up SUPPLEMENTAL MATERIAL: None REFERRAL (RECOMMENDATION): None Electronically Signed By: Blanca Waters RN In Department: [facility] SURGERY ANES POST Observed: 07/05/2017 Status: COMPLETED Source: [facility] 4:10 PM CLINIC OTHER CAMPUS REPOSITORY HNO ID: [id number] Author: Fidel Hernández Service: Anesthesiology Author Type: Anesthesiologist Type: Anesthesia PostOp Filed: 07/05/2017 4:10 PM Note Text: POST ANESTHESIA EVALUATION NOTE SERVICE DATE: 07/05/2017 SERVICE TIME: 1529 : 1950 Vitals: 07/05/17 1108 07/05/17 1411 Temp: 36.5 ?C (97.7 ?F) 36.4 ?C (97.5 ?F) 07/05/17 1430 07/05/17 1445 07/05/17 1500 07/05/17 1515 BP: 127/76 134/84 130/71 145/79 07/05/17 1430 07/05/17 1445 07/05/17 1500 07/05/17 1515 Pulse: 106 88 85 80 07/05/17 1430 07/05/17 1445 07/05/17 1500 07/05/17 1515 Resp: 16 18 18 16 07/05/17 1430 07/05/17 1445 07/05/17 1500 07/05/17 1515 SpO2: 96% 94% 94% 91% Validated Vital Signs: YES No apparent anesthetic complications. The patient is appropriately hydrated with stable respiratory and cardiovascular status. Patient has safe and adequate airway control. The patient has appropriate pain relief and no significant post operative nausea or vomiting. The patient has achieved baseline mental status. Further assessment by Anesthesia Service: None Other Remarks: SIGNATURE: Fidel Hernández MD PATIENT NAME: Brianna Potts DATE: July 05, 2017 TIME: 4:10 PM PAGER/CONTACT #: [phone] NURSING PROG Observed: 07/05/2017 Status: COMPLETED Source: [place] 3:50 PM [facility] REPOSITORY HNO ID: [id number] Author: Blanca (Rn) Evelin RN Service: Nursing Author Type: Registered Nurse Type: Nursing Progress Note Filed: 07/05/2017 4:35 PM Note Text: 1550 report from Keshia RAY in PACU. Pt AANDOx3. Moves RUE, LUE no movement no sensation, s/p block.LUE sling inplace. PIV d/c'd drsg on. VSS no s/sx of distress 1620 d/c instructions given. pt d/c'd to home via wheelchair. NURSING PROG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 Repository 08/15/2017/08/16/19 [id number] Ambulatory [address] Repository 08/15/2017/08/16/19 [id number] Ambulatory [address] Repository 07/30/2017 [id number] Ambulatory [facility] ding:PSN Repository 07/15/2017/07/17/19 [id number] Ambulatory [address] Repository 07/12/2017 [id number] Ambulatory [facility] ding:PSN Repository 07/05/2017/07/06/19 [id number] GEOFF, Ambulatory [address] [place] Repository 07/01/2017/07/02/19 [id number] Ambulatory [address] Repository 07/01/2017/07/02/19 [id number] Ambulatory [address] Main [place] Repository 06/27/2017/07/02/19 [id number] Ambulatory [address] Main [place] Repository 06/24/2017/06/25/19 [id number] Ambulatory [address] [place] Repository 06/12/2017/06/12/19 [id number] Ambulatory BMSBuilding: [place] 18 BMS.[facility] Repository 06/10/2017/06/29/19 [id number] Ambulatory [address] Repository 06/10/2017/06/10/19 [id number] Ambulatory [address] Repository 06/04/2017 [id number] Ambulatory [facility] MEDICAL Repository CENTERBuildi ng:AKXRNM 06/04/2017 [id number] Ambulatory [facility] MEDICAL Repository CENTERBuildi ng:AKXRNM 05/20/2017 [id number] Ambulatory [facility] ding:MRI Repository 04/04/2017 [id number] Ambulatory [facility] [place] 04/04/2017 [id number] Ambulatory [facility] MEDICAL Repository CENTERBuildi ng:AKXRNM PAYERS PAYERS ENCOUNTER GUARANTOR PAYER SUBSCRIBER SOURCE 03/14/2018 BRIANNA P Primary BRIANNA P [place] [id number] Insurance:HUMANA KISTERDOB: Community [place] MEDICARE [place]olicy [id number]: Repository [address]112[address]Hnj: 330 [id number] [phone] (HP) Date:[id number] [address] [place] [phone]: 03/14/2018 Secondary NOT GIVENUNK [place] Insurance:SELF PAY [facility] Number: Effective Repository Date:2018-03-14 03/13/2018 BRIANNA P Primary BRIANNA P [place] [id number] Insurance:HUMANA KISTERDOB: Community [place] MED[place] PPOPolicy [id number] Number: Repository [address]Gev: 330 [id number] [phone] (HP) Date:6280-46-61DN [address] [place] [address]CV: 03/13/2018 Secondary NOT GIVENUNK [place] Insurance:SELF PAY [facility] Number: Effective Repository Date:2018-03-11 12/21/2017 BRIANNA P Primary BRIANNA P [place] [id number] Insurance:HUMANA KISTERDOB: Community [place] PPOPolicy [id number] Number: Repository [id number]: 330 [id number] [phone] (HP) Date:9405-01-67OF [address] [place] [address]VB: 12/21/2017 Secondary NOT GIVENUNK [place] Insurance:SELF PAY [facility] Number: Effective Repository Date:2017-12-21 07/30/2017 BRIANNA P Primary BRIANNA P [place] [id number] Insurance:HUMANA KISTERDOB: [facility] [place] PPOPolicy [id number] Number: Repository [address]Xjm: 330 [id number] [phone] (HP) Date:[id number] [address] [address]FG: 07/30/2017 Secondary NOT GIVENUNK [place] Insurance:SELF PAY [facility] Number: Effective Repository Date:2017-05-15 07/12/2017 BRIANNA P Primary BRIANNA P [place] [id number] Insurance:HUMANA KISTERDOB: Community [place] PPOPolicy [id number] Number: Repository [address]Gbt: 330 [id number] [phone] (HP) Date:[id number] [address]JI: 07/12/2017 Secondary NOT GIVENUNK [place] Insurance:SELF PAY [facility] Number: Effective Repository Date:2017-06-12 06/12/2017 BRIANNA P Primary BRIANNA P [place] [id number] Insurance:HUMANA KISTERDOB: Community [place] PPOPolicy [id number] Number: Repository [id number]: 330 [id number] [phone] (HP) Date:[id number] [address]QS: 06/12/2017 Secondary NOT GIVENUNK [place] Insurance:SELF PAY [facility] Number: Effective Repository Date:2017-06-05 06/04/2017 BRIANNA P Primary BRIANNA P [facility] KISTERDOB: Insurance:HUMANA KISTERDOB: [id number] Number: [place], [place] [id number]: (330) Date: [phone] (HP) 06/04/2017 BRIANNA P Primary BRIANNA P [facility] KIERDOB: Insurance:HUMANA KISTERDOB: [facility] [employer] [id number] Repository [place] Number: [place] [id number]: (330) Date: [phone] (HP) 05/20/2017 Brianna P Primary Brianna P [place] [id number] Insurance:[facility]NA [facility] [place] MED[place]ARE PPOPolicy [id number] [facility] [place] Number: Repository [id number]: (330) [id number] [phone] (HP) Date:1124-20-93YD [address] [place] [address]KH: 05/20/2017 Secondary NOT GIVENUNK [place] Insurance:SELF PAY [facility] Number: Effective Repository Date:2017-05-15 04/04/2017 BRIANNA P Primary BRIANNA P [facility] [id number] Repository [place] Number: [place] [id number]: (330) Date: [phone] (HP) 04/04/2017 BRIANNA P Primary BRIANNA P [facility] KIERDOB: Insurance:HUMANA KISTERDOB: [facility] [employer] [id number] Repository [place] Number: [place] [id number]: (330) Date: [phone] (HP)
== END ==
PROVIDERS: Family Provider Internal Medicine; PCP Internal Medicine; Referring Provider Internal Medicine; Visit Provider Internal Medicine
DX: I10 Essential (primary) hypertension (principal); R35.0 Frequency of micturition
CPT/HCPCS: 36415; 80053; 80061; 81001

== ENCOUNTER → 2018-04-09 10:51 | Outpatient (CLI) | payer MEDICARE, SELFPAY ==
[2018-03-13 16:09] VITALS: BMI 19.6
--- NOTE | 2018-04-09 10:52 | ART_ITS ---
Reason For Study: BLE burning/numbness Left Segmental Pressures Left brachial= 136mmHg. Left posterior tibial artery = 146mmHg. Left dorsalis pedis artery = 142mmHg. The left dorsalis pedis waveforms are triphasic. The left posterior tibial artery waveforms are triphasic. Right Segmental Pressures Right brachial= 134mmHg. Right posterior tibial artery = 153mmHg. Right dorsalis pedis artery = 150mmHg. The right dorsalis pedis waveforms are triphasic. The right posterior tibial artery waveforms are triphasic. Indices The right ankle brachial index by the dorsalis pedis is 1.1. The right ankle brachial index by the posterior tibial artery is 1.1. The left ankle brachial index by the dorsalis pedis is 1.0. The left ankle brachial index by the posterior tibial artery is 1.1. Interpretation Summary Resting ankle-brachial indices appear bilaterally normal. Bilateral dorsalis pedis and posterior tibialis waveforms normal and triphasic. Ordering Physician: Zane Barbosa Referring Physician: Zane Barbosa Performed By: Jaqui Blackwell T
--- NOTE | 2018-04-09 11:17 | CT_ITS ---
STUDY: LOW DOSE CT LUNG CANCER SCREENING REASON FOR EXAM: Male, 67 years old. Three-quarter pack a day smoking history for 47 years. RADIATION DOSAGE (If Supplied By Facility): CTDIvol = ( 3.02 ) mGy, DLP = ( 109.48 ) mGycm TECHNIQUE: No contrast was administered. Low dose technique was utilized (average mAS-38 and kVp 120). 1.25 mm axial source images with a slice interval of 1.25-mm were reconstructed in lung windows. 2.5 mm axial source images with a slice interval of 2.5-mm were reconstructed in lung windows. 5.0 mm axial source images with a slice interval of 5.0-mm were reconstructed in soft tissue windows. Nodule measured using lung windows on PACS and/or independent workstation with automated measurement of minimum and maximum diameter. Nodule measurement reported as average diameter rounded to the nearest whole number. Growth is defined as an increase ins size of greater than 1.5 mm. COMPARISON: None. NODULES: Nodule #: 1 Density: Solid Lung location: Right upper lobe: 1. Cm from pleura Location in series: Series Number: 2 Image: 93 Size - D1 x D2 mm: 5 x 5 mm: 5 mm average diameter Margin: Smooth Shape: Rounded Calcification: Yes Fat: No Temporal comparison: None Nodule #: 2 Density: Solid Lung location: Right lower lobe: 1 cm from pleura Location in series: Series Number: 2 Image: 160 Size - D1 x D2 mm: 3 x 3 mm: 3 mm average diameter Margin: Smooth Shape: Rounded Calcification: No Fat: No Temporal comparison: None Nodule #: 3 Density: Solid Lung location: Left lower lobe: Pleural-based Location in series: Series Number: 2 Image: 151 Size - D1 x D2 mm: 32 x 14 mm: 30 mm average diameter Margin: Irregular Shape: Oval Calcification: No Fat: No Temporal comparison: None This has the appearance of a pleural-based mass versus area of consolidation. There is marked scarring in the adjacent left lower lobe. Total lung nodules (excluding granulomas): 3 Emphysema: There are diffuse emphysematous changes lungs. There is bilateral apical pleural scarring. Endobronchial lesion: No Aorta: There is mild atherosclerotic tortuosity of the thoracic aorta. Coronary arteries: Normal Heart: Normal Pulmonary artery: Normal Mediastinal nodes: Normal Other chest and abdominal findings: There are degenerative changes of the thoracic spine. There is left basilar pleural thickening. CT/Low Dose CT Lung Screening IMPRESSION: 1. Large pleural-based mass in the posterior left lung base. 2. Small nodular density in the right lower lobe with a calcified granuloma in the upper lobe. 3. Emphysema. Lung-RADS category 4B - Chest CT with or without contrast, PET/CT and/or tissue sampling can be obtained depending on the probability of malignancy and comorbidities. IMPORTANT NOTES FOR USE: ACR Lung-RADS Version 1.0 Assessment Categories Release Date: August 10, 2013 Category: Coded 0-4 bases on nodule(s) with highest degree of suspicion. Negative screen is defined as categories 1 and 2; a positive screen is defined as categories 3 and 4. Category 3 and 4A nodules that are unchanged on interval CT should be coded as category 2, and individuals returned to screening in 12 months. Category 4X: Category 3 or 4 nodules with additional imaging findings that increase the suspicion of lung cancer, such as spiculation, GGN that doubles in size in 1 year, enlarged lymph notes, etc. Category Modifiers: S (significant finding unrelated to lung cancer) and C (prior history of treated lung cancer) may be added to the 0-4 Lung-RADS Electronically Signed: London Fischer DO at 21:58 EST Tel [phone], Service support ,
== END ==
PROVIDERS: Family Provider Internal Medicine; PCP Internal Medicine; Referring Provider Nurse Practitioner Family; Visit Provider Nurse Practitioner Family
DX: R20.0 Anesthesia of skin (principal); Z12.2 Encounter for screening for malignant neoplasm of respiratory organs; J43.9 Emphysema, unspecified; Z87.891 Personal history of nicotine dependence
CPT/HCPCS: 93922; G0297

== ENCOUNTER → 2018-04-10 12:49 | Outpatient (CLI) | payer MEDICARE, SELFPAY ==
[2018-03-13 16:09] VITALS: BMI 19.6
--- NOTE | 2018-04-11 11:23 | PFTCOMP_ITS ---
COMPLETE PULMONARY FUNCTION TEST INTERPRETATION Brief HPI: Patient is a 67 year old male, currently under the care of Zane Barbosa, who presents to [facility] for complete pulmonary function tests secondary to diagnosis of dyspnea. Respiratory therapist reports good effort and reproducible results. Interpretation: Forced expiration spirometry shows a moderately-severe large airways obstructive ventilatory defect with an FEV1 of 62% predicted. There is no significant bronchodilator response by strict ATS criteria. Spirograms are of good quality and plateau slowly, indicating slowly emptying areas of the lungs. The respiratory flow volume loop shows decreased expiratory flow rates at all lung volumes consistent with airway obstruction. Lung volumes by body plethysmography show a normal total lung capacity at 6.51 L, 92% predicted. All other lung volumes are within normal limits. Diffusion capacity by carbon monoxide is normal at 85% predicted. The airway resistance is elevated. No previous pulmonary function tests were available for review. Impression: Irreversible moderately severe large airways obstructive ventilatory defect with preserved diffusion capacity consistent with chronic bronchitis
== END ==
PROVIDERS: Family Provider Internal Medicine; PCP Internal Medicine; Referring Provider Nurse Practitioner Family; Visit Provider Nurse Practitioner Family
DX: J44.9 Chronic obstructive pulmonary disease, unspecified (principal); F17.210 Nicotine dependence, cigarettes, uncomplicated
CPT/HCPCS: 94060; 94726; 94729

== ENCOUNTER → 2018-04-29 09:15 | Outpatient (CLI) | payer MEDICARE, SELFPAY ==
[2018-04-16 08:35] VITALS: BMI 21.9
--- NOTE | 2018-04-29 09:15 | SP.MBSS_ITS ---
PRIMARY / SECONDARY DIAGNOSIS: Dysphagia REFERRING PHYSICIAN: Dr. Cerrato CURRENT DIET: regular textures/thin liquids DENTITION: upper dentures/lower edentulous MENTAL STATUS: sufficient for participation in MBS RESPIRATORY STATUS: oxygenating on room air PREVIOUS MODIFIED BARIUM SWALLOW STUDY: n/a REASON FOR REFERRAL: further assessment of swallow function under fluoroscopy ordered d/t patient report of difficulty swallowing pills and solid textures MEDICAL HISTORY: bronchiectasis, abnormal lung CT, Factor 5 Leiden mutation heterozygous, numbness, urinary frequency, bipolar 1 disorder, SBO, penetrating abdominal trauma, Parkinson?s Disease, HTN, GERD, depression, tobacco use, COPD, left sided abdominal pain, history of throat cancer and prostate cancer - both treated with surgical resection and did not require any chemo or radiation to his knowledge. STUDY FINDINGS: Patient participated in a Modified Barium Swallow (MBS) study on 04/29/2018. Dr. Mckinnon was the radiologist present for this evaluation. This study was recorded in the lateral view and images were sent to PACs for storage. The following consistencies were presented to this patient for analysis of oropharyngeal swallow function: thin liquid, pudding, and a regular texture Brenda Doone shortbread cookie. Results of the MBS are as follows: PENETRATION / ASPIRATION SCALE (BELTRAN): 1 = does not enter airway 2 = enters airway/above vocal folds/ejected 3 = enters airway/above vocal folds/not ejected 4 = enters airway/contacts vocal folds/ejected 5 = enters airway/contacts vocal folds/not ejected 6 = enters airway/below vocal folds/ejected 7 = enters airway/below vocal folds/not ejected despite effort 8 = enters airway/below vocal folds/no effort PENETRATION / ASPIRATION SCALE (SCORE): 1. Thin liquid teaspoon: 1 = does not enter airway 2. Thin liquid cup: 1 = does not enter airway 3. Thin liquid cup: 1 = does not enter airway 4. Thin liquid cup sequential swallows: 2 = enters airway/above vocal folds/ejected 5. Thin liquid straw: 1 = does not enter airway 6. Puddin = does not enter airway 7. ? Brenda Doone shortbread cookie: 1 = does not enter airway IMPRESSION ORAL PHASE CHARACTERIZED BY: LABIAL SEAL: no labial escape TONGUE CONTROL DURING BOLUS MANIPULATION: escape to floor of mouth BOLUS PREPARATION / MASTICATION: slow prolonged chewing/mashing with complete recollection BOLUS TRANSPORT / LINGUAL MOTION: slowed tongue motion ORAL RESIDUE: trace residue lining oral structures PHARYNGEAL PHASE CHARACTERIZED BY: INITIATION OF PHARYNGEAL SWALLOW: bolus head at posterior laryngeal surface of epiglottis at first hyoid excursion SOFT PALATE ELEVATION: no bolus between soft palate and pharyngeal wall LARYNGEAL ELEVATION: partial superior movement of thyroid cartilage/partial approximation of arytenoids cartilage to epiglottic petiole ANTERIOR HYOID EXCURSION: complete anterior movement EPIGLOTTIC MOVEMENT: complete epiglottic inversion LARYNGEAL VESTIBULE CLOSURE AT HEIGHT OF SWALLOW: complete laryngeal vestibule closure with no air/contrast in laryngeal vestibule PHARYNGEAL STRIPPING WAVE: pharyngeal stripping wave present / diminished PHARYNGOESOPHAGEAL SEGMENT OPENING: complete distension and complete duration with no obstruction of flow TONGUE BASE RETRACTION: trace column of contrast between tongue base and posterior pharyngeal wall PHARYNGEAL RESIDUE: trace residue within or on pharyngeal structures ESOPHAGEAL PHASE CHARACTERIZED BY: ESOPHAGEAL BOLUS CLEARANCE IN THE UPRIGHT POSITION: esophageal retention with retrograde flow through PES (trace) EFFECTS OF TREATMENT STRATEGIES ATTEMPTED: Reduced rate of intake = effective INTERPRETATION OF RESULTS: Patient presents with mild oropharyngeal dysphagia (R13.12). Oral phase primarily marked by slowed lingual motion for A-P bolus transfer and swallow onset w/ trace oral residue retention appreciated post deglutition. Pharyngeal phase primarily marked by delayed pharyngeal swallow onset timing resulting in suboptimal bolus location upon swallow onset contributing reduced closure of the airway during deglutition with laryngeal vestibule penetration (transient, ejected w/ swallow completion) with sequential swallows only. Penetration was eliminated with bolus volume adjustments. Screws/plates noted along cervical spine d/t prior fusion surgery. Esophageal phase marked by prominent cricopharyngeus with no impact noted on pharyngoesophageal segment opening, although trace residue retention appreciated w/ retrograde flow through PES into pharynx, which may contribute to sensation of food/pills sticking/not clearing as reported by patient. RECOMMENDATIONS DIET: regular textures/thin liquids COMPENSATORY STRATEGIES RECOMMENDED: reduced bolus volume (no sequential swallow), reduced rate of intake, thoroughly chew, use sauce/gravy to moisten foods, follow solids w/ a liquid chaser, trial meds whole in pudding followed by liquid wash, seated upright at 90 degrees during PO intake and remain upright for 30-60 minutes post meal (GERD precaution) ADDITIONAL RECOMMENDATIONS: Consider further esophageal workup due to the symptoms described above by the Patient (esophagram). No further skilled speech-language intervention warranted as the patient was able to comprehend and express recommended intake precautions detailed above with sufficient detail to suggest high likelihood of compliance. Provided brief overview of signs and symptoms of aspiration and increased risk as Parkinson?s Disease progresses, with recommendation for the Patient to further discuss symptoms with PCP. No further skilled speech-language services warranted at this time targeting dysphagia. ADDITIONAL COMMENTS: Results and recommendations were discussed, and images reviewed with the Patient immediately following MBS completion, with the Patient verbalizing understanding and agreement with all recommendations and education provided. IMAGE COUNT: [id number] Willa Ferguson M.A. CCC-[employer]ING [employer] SET UP OPERATOR [facility] Department of Speech-Language Pathology [address] [place] [id number] [email or web address] [phone]
--- NOTE | 2018-04-29 09:19 | RAD_ITS ---
STUDY: SWALLOWING STUDY REASON FOR EXAM: Male, 67 years old. Dysphagia. TECHNIQUE: The examination was performed with Speech Pathology in attendance. Under fluoroscopic observation, the patient ingested thin barium, thick barium, barium pudding, and barium coated cracker. FLUOROSCOPY TIME: 1:20 minutes/seconds. 1323 spot images were obtained. RADIOLOGIST INVOLVEMENT: Radiologist was present and providing direct supervision. COMPARISON: None. FINDINGS: The following was observed during swallowing of the various mixtures of barium: Thin Barium: Transient penetration with ingestion of thin liquids. Barium Pudding: There was no evidence of aspiration or laryngeal penetration. Barium Coated Cracker: There was no evidence of aspiration or laryngeal penetration. RAD/Swallowing Function w/Video IMPRESSION: Transient penetration with ingestion of thin liquids. The swallow study findings were discussed with the patient by the speech pathologist at the conclusion of the examination. Please see speech pathology report for more information and recommendations. Electronically Signed: Matt Mckinnon MD at 10:04 EST Tel [phone], Service support ,
== END ==
PROVIDERS: Family Provider Internal Medicine; PCP Internal Medicine; Referring Provider Internal Medicine Critical Care Medicine; Visit Provider Internal Medicine Critical Care Medicine
DX: G20 Parkinson's disease (principal); R13.10 Dysphagia, unspecified
CPT/HCPCS: 74230; 92611

== ENCOUNTER → 2018-05-05 07:24 | Outpatient (CLI) | payer MEDICARE, SELFPAY ==
[2018-04-16 08:35] VITALS: BMI 21.9
--- NOTE | 2018-05-05 08:00 | PET_ITS ---
EXAMINATION: FDG PET CT INDICATIONS: A 67-year-old male with reported history of carcinoma of the prostate presenting for evaluation of pulmonary nodularity. COMPARISON EXAMINATION: CT of the chest report dated 04/09/18. INDEX LESION SIZE SUV INTERPRETATION Left lower posterior hemithorax pulmonary parenchyma, pleural interface 38.7 mm (frame 167) 1.2 Quantitative criteria for viable neoplasm are not fulfilled, sequential radiologic investigation recommended TECHNIQUE: Following the intravenous administration of 17.46 mCi of F-18 deoxyglucose via the right forearm, multiplanar image acquisitions of the neck, chest, abdomen and pelvis to level of mid thigh, obtained at one hour post radiopharmaceutical administration contemporaneously interpreted with the current CT of the neck, chest, abdomen and pelvis to level of mid thigh, dated 05/05/[address] of the chest report dated 04/09/18 reveal: SERUM GLUCOSE LEVEL: 120 mg/dl. HEIGHT: 72 inches. WEIGHT: 154 lbs. FINDINGS: 1. Barely perceptible increased glucose metabolism is manifest in the left lower posterior hemithorax at the pleural interface, linear in presentation in the coronal plane generating a calculated maximum standard uptake value of 1.2. The maximal axial diameter of the pleural-based density on review of CT of the chest dated 05/05/18 is 38.7 mm (transverse). 2. Normal physiologic distribution of the radiopharmaceutical is apparent in the hepatic (2.4) and splenic parenchyma, both renal units, bladder and visualized intestinal tract. There is uniform distribution of the radiopharmaceutical concentration defined in the visualized cerebellar hemispheres and cerebral cortical structures.? Diffuse intestinal tract activity is noted throughout all four quadrants of the abdominal-pelvic retroperitoneum, mesentery consistent with normal physiologic distribution of the radiopharmaceutical. Pertinent CT findings are as follows. CHEST: The parenchymal density defined in the right lower hemithorax pulmonary parenchyma, right lower lobe reveals no evidence of discernible increased glucose metabolism. Atherosclerotic calcification is defined in the thoracic aorta without evidence of dilatation, aneurysm formation. A calcified parenchymal density noted in the right mid anteromedial lung zone is ametabolic. Right-left axillary soft tissue densities with fatty hilus formation are non-glucose avid. Scattered subcentimeter mediastinal soft tissue reveals no evidence of facilitated fluorodeoxyglucose uptake. A hiatal hernia is noted. ABDOMEN AND PELVIS: Atherosclerotic calcification is defined in the abdominal aorta without evidence of dilatation, aneurysm formation. Pelvic arterial calcification is observed. Filter placement is noted in the inferior vena cava. Cyst formation is visualized in the right and left kidneys. Bilateral inguinal soft tissue densities reveal no evidence of facilitated FDG uptake. Dystrophic calcification is manifest within the prostate gland without evidence of quantitatively significant enhanced FDG uptake. SKELETAL: Degenerative changes defined in the cervical, thoracic and lumbar spine demonstrate no evidence for glucose hypermetabolism. Orthopedic hardware placement is noted in the mid-lower cervical spine. PET/PET/CT Tumor Base -Thigh Init IMPRESSION: 1. NEGATIVE EXAMINATION. There is no definitive quantitative scintigraphic evidence of recurrent-metastatic viable neoplasm. 2. Mild increased glucose concentration visualized in the left lower posterior hemithorax pulmonary parenchyma, pleural interface does not fulfill quantitative criteria for viable neoplasm. (Tequila et al, Annals of Internal Medicine, 138:724, 2003. Villarreal, et al, Chest 122:1918, 2002). 3. Metabolic and/or anatomic stability may be ensured in the left hemithorax pulmonary parenchymal abnormality with repeat FDG PET study and/or CT of the thorax in three months. (Xiu, Journal of Nuclear Medicine 45:88, P2004. Bjorn, Seminars in Thoracic and Cardiovascular Surgery 14:292, 2002). 4. Diffuse intestinal tract distribution of radiopharmaceutical is most consistent with physiologic tracer distribution. If intraluminal soft tissue mass formation is a diagnostic consideration, correlation with CT of the abdomen and pelvis with oral and intravenous contrast is recommended. (Slime et al, Journal of Nuclear Medicine, 30:S242, 2003). Electronic Signature Tan Chris D.O. Electronically Signed: Tan Chris DO at 23:48 EST Tel , Service support ,
--- OUTSIDE RECORDS SUMMARY | 2018-07-07 15:03 | XMS RPT_ITS ---
:1950 Author Organization OHIP Support Name Relationship Address Phone R Unavailable Unavailable Unavailable CHRISTI, EZEKIEL Unavailable [address] + [place] [address] R Unavailable Unavailable Unavailable CHRISTI, EZEKIEL Unavailable [address] + [place] [address] R Unavailable Unavailable Unavailable CHRISTI, EZEKIEL Unavailable [address] + [place] [address] R Unavailable Unavailable Unavailable CHRISTI, EZEKIEL Unavailable [address] + [place] [address] R Unavailable Unavailable Unavailable CHRISTI, EZEKIEL Unavailable [address] + [place] [address] R Unavailable Unavailable Unavailable CHRISTI, EZEKIEL Unavailable [address] + [place] [address] R Unavailable Unavailable Unavailable CHRISTI, EZEKIEL Unavailable [address] + [place] [address] R Unavailable Unavailable Unavailable CHRISTI, EZEKIEL Unavailable [address] + [place] [address] R Unavailable Unavailable Unavailable CHRISTI, EZEKIEL Unavailable [address] + [place] [address] R Unavailable Unavailable Unavailable CHRISTI, EZEKIEL Unavailable [address] + [place] [address] R Unavailable Unavailable Unavailable CHRISTI, EZEKIEL Unavailable [address] + [place] [address] R Unavailable Unavailable Unavailable CHRISTI, EZEKIEL Unavailable [address] + [place] [address] R Unavailable Unavailable Unavailable CHRISTI, EZEKIEL Unavailable [address] + [place] [address] R Unavailable Unavailable Unavailable CHRISTI, EZEKIEL Unavailable [address] [facility] + [place] [address] R Unavailable Unavailable Unavailable CHRISTI, EZEKIEL Unavailable [address] [facility] + [place] [address] Care Team Providers Name Role Phone Rosmery Rahman Attending Unavailable Mirza Ceron Attending Unavailable Zane Barbosa SUPERVISOR TYPE DISK QUALITY CONTROL-C Referring Unavailable Oleghe, Efewongbe Primary Care Unavailable Zane Barbosa SUPERVISOR TYPE DISK QUALITY CONTROL-C Consulting Unavailable Bob Cerrato Attending Unavailable Oleghe, Efewongbe Referring Unavailable Bob Cerrato Attending Unavailable Bob Cerrato Referring Unavailable Oleghe, Efewongbe Primary Care Unavailable Ceferino Pedroza SHenok Attending Unavailable Kasia Ceferino SHenok Referring Unavailable Oleghe, Efewongbe Primary Care Unavailable Zane Barbosa SUPERVISOR TYPE DISK QUALITY CONTROL-C Attending Unavailable Oleghe, Efewongbe Referring Unavailable Oleghe, Efewongbe Primary Care Unavailable Zane Barbosa SUPERVISOR TYPE DISK QUALITY CONTROL-C Attending Unavailable BarbosaZane SUPERVISOR TYPE DISK QUALITY CONTROL-C Referring Unavailable Oleghe, Efewongbe Primary Care Unavailable Melodie Pedrozah SHenok Attending Unavailable Oleghe, Efewongbe Primary Care Unavailable Oleghe, Efewongbe Primary Care Unavailable Surendra Cordova Attending Unavailable Oleghe, Efewongbe Attending Unavailable Oleghe, Efewongbe Referring Unavailable Bob Cerrato Attending Unavailable Zane Barbosa SUPERVISOR TYPE DISK QUALITY CONTROL-C Referring Unavailable Bob Cerrato Attending Unavailable Oleghe, Efewongbe Primary Care Unavailable Oleghe, Efewongbe Attending Unavailable Oleghe, Efewongbe Referring Unavailable Oleghe, Efewongbe Primary Care Unavailable Zane Barbosa SUPERVISOR TYPE DISK QUALITY CONTROL-C Attending Unavailable Zane Barbosa SUPERVISOR TYPE DISK QUALITY CONTROL-C Referring Unavailable Oleghe, Efewongbe Primary Care Unavailable Zane Barbosa SUPERVISOR TYPE DISK QUALITY CONTROL-C Attending Unavailable Zane Barbosa SUPERVISOR TYPE DISK QUALITY CONTROL-C Referring Unavailable Oleghe, Efewongbe Primary Care Unavailable SEYMOUR CANCHOLA Referring Unavailable SEYMOUR CANCHOLA Attending Unavailable SEYMOUR CANCHOLA Referring Unavailable SEYMOUR CANCHOLA Attending Unavailable SEYMOUR CANCHOLA Referring Unavailable MAYELA SHELTON (MAGDA) Referring Unavailable KYLEE VALDIVIA (MAGDA) Attending Unavailable SEYMOUR CANCHOLA Referring Unavailable SEYMOUR CANCHOLA Attending Unavailable SEYMOUR CANCHOLA Referring Unavailable SEYMOUR CANCHOLA Referring Unavailable SEYMOUR CANCHOLA Admitting Unavailable SEYMOUR CANCHOLA Attending Unavailable IMCA Referring Unavailable IMCA Primary Care Unavailable IMCA Referring Unavailable IMCA Primary Care Unavailable PROBLEMS PROBLEMS DATE TYPE CONDITION / CODE ATTENDING STATUS SOURCE 04/16/2018 Unknown R91.8 - Other SaqibBob choudhury Active [place] nonspecific Community abnormal finding of Hospital lung field / Repository R91.8(ICD-10) 04/16/2018 Unknown J47.9 - Saqib, Bob Active [facility] Bronchiectasis, Community uncomplicated / Hospital J47.9(ICD-10) Repository 04/16/2018 Unknown C61 - Malignant SaqibBob choudhury Active [place] neoplasm of Community prostate / Hospital C61(ICD-10) Repository 04/16/2018 Unknown Z85.819 - Personal SaqibBob choudhury Active [facility] history of Community malignant neoplasm Hospital of unspecified site Repository of lip, oral cavity, and pharynx / Z85.819(ICD-10) 04/16/2018 Unknown G20 - Parkinson's SaqibBob choudhury Active [facility] disease / Community G20(ICD-10) Hospital Repository 04/16/2018 Unknown R13.10 - Dysphagia, SaqibBob choudhury Active [facility] unspecified / Community R13.10(ICD-10) Hospital Repository 04/25/2018 Unknown J44.9 - Chronic SaqibBob choudhury Active [place] obstructive Community pulmonary disease, Hospital unspecified / Repository J44.9(ICD-10) 04/10/2018 Unknown R20.0 - Anesthesia Zane Barbosa Active [place] of skin / SUPERVISOR TYPE DISK QUALITY CONTROL-C Community R20.0(ICD-10) Hospital Repository 04/10/2018 Unknown F17.210 - Nicotine Barbosa, Zane Active [facility] dependence, SUPERVISOR TYPE DISK QUALITY CONTROL-C Community cigarettes, Hospital uncomplicated / Repository F17.210(ICD-10) 04/10/2018 Unknown R06.00 - Dyspnea, Barbosa, Zane Active [facility] unspecified / SUPERVISOR TYPE DISK QUALITY CONTROL-C Community R06.00(ICD-10) Hospital Repository 03/13/2018 Unknown I10 - Essential Oleghe, Active [place] (primary) [facility] Community hypertension / Hospital I10(ICD-10) Repository 03/13/2018 Unknown R35.0 - Frequency Oleghe, Active [facility] of micturition / [place] Community R35.0(ICD-10) Hospital Repository 03/13/2018 Unknown Z23 - Encounter for Oleghe, Active [place] immunization / [place] Community Z23(ICD-10) Hospital Repository 08/15/2017 Active Pain in right NA Active [facility] shoulder / [facility] [place] M25.511(ICD-10) Repository 08/15/2017 Active Other chronic pain NA Active [facility] / G89.29(ICD-10) [facility] [place] Repository 08/15/2017 Active Impingement NA Active [facility] syndrome of right [facility] [place] shoulder / Repository M75.41(ICD-10) 07/23/2017 Unknown G62.9 - Kasia, Active [place] Polyneuropathy, Ceferino S. Community unspecified / Hospital G62.9(ICD-10) Repository 07/23/2017 Unknown R20.2 - Paresthesia Kasia, Active [place] of skin / Ceferino S. [facility] R20.2(ICD-10) Hospital Repository 07/05/2017 Active Unspecified SEYMOUR CANCHOLA Active [facility] disorder of Other [place] synovium and Repository tendon, left upper arm / M67.922(ICD-10) 07/01/2017 Active Encounter for other NA Active [facility] preprocedural [facility] [place] examination / Repository Z01.818(ICD-10) 06/24/2017 Active Pain in left NA Active [facility] shoulder / [facility] [place] M25.512(ICD-10) Repository 06/24/2017 Active Unspecified rotator NA Active [facility] cuff tear or [facility] [place] rupture of left Repository shoulder, not specified as traumatic / M75.102(ICD-10) 06/10/2017 Active Unknown / SEYMOUR CANCHOLA Active [facility] UNK(Unknown) [facility] [place] Repository 06/10/2017 Active Pain, unspecified / NA Active [facility] R52(ICD-10) [facility] [place] Repository 2017 Unknown R25.1 - Tremor, Kasia, Active [place] unspecified / Ceferino S. Community R25.1(ICD-10) Hospital Repository PROCEDURES PROCEDURES No Procedure Records FoundRESULTS RESULTS PET/CT TUMOR BASE Observed: 05/02/2018 Status: F Source: [place] -[place] INIT 1:01 PM [facility] RE[facility] Imaging Services [address] [place] [address] PET/CT Tumor Base -Thigh Init MR#: [id number] Acct: [id number] Name: BRIANNA POTTS Rep #: [id number] : 1950 M 67 From: Tan Chris DO PCP: Ale Pepe MD Status: REG CLI Study: PET/CT Tumor Base -Thigh Init Date of Exam: 05/05/18 Exam# [id number] Ordering Dr: Bob Cerrato MD EXAMINATION: FDG PET CT INDICATIONS: A 67-year-old male with reported history of carcinoma of the prostate presenting for evaluation of pulmonary nodularity. COMPARISON EXAMINATION: CT of the chest report dated 04/09/18. INDEX LESION SIZE SUV INTERPRETATION Left lower posterior hemithorax pulmonary parenchyma, pleural interface 38.7 mm (frame 167) 1.2 Quantitative criteria for viable neoplasm are not fulfilled, sequential radiologic investigation recommended TECHNIQUE: Following the intravenous administration of 17.46 mCi of F-18 deoxyglucose via the right forearm, multiplanar image acquisitions of the neck, chest, abdomen and pelvis to level of mid thigh, obtained at one hour post radiopharmaceutical administration contemporaneously interpreted with the current CT of the neck, chest, abdomen and pelvis to level of mid thigh, dated 05/05/[address] of the chest report dated 04/09/18 reveal: SERUM GLUCOSE LEVEL: 120 mg/dl. HEIGHT: 72 inches. WEIGHT: 154 lbs. FINDINGS: 1. Barely perceptible increased glucose metabolism is manifest in the left lower posterior hemithorax at the pleural interface, linear in presentation in the coronal plane generating a calculated maximum standard uptake value of 1.2. The maximal axial diameter of the pleural-based density on review of CT of the chest dated 05/05/18 is 38.7 mm (transverse). 2. Normal physiologic distribution of the radiopharmaceutical is apparent in the hepatic (2.4) and splenic parenchyma, both renal units, bladder and visualized intestinal tract. There is uniform distribution of the radiopharmaceutical concentration defined in the visualized cerebellar hemispheres and cerebral cortical structures.? Diffuse intestinal tract activity is noted throughout all four quadrants of the abdominal-pelvic retroperitoneum, mesentery consistent with normal physiologic distribution of the radiopharmaceutical. Pertinent CT findings are as follows. CHEST: The parenchymal density defined in the right lower hemithorax pulmonary parenchyma, right lower lobe reveals no evidence of discernible increased glucose metabolism. Atherosclerotic calcification is defined in the thoracic aorta without evidence of dilatation, aneurysm formation. A calcified parenchymal density noted in the right mid anteromedial lung zone is ametabolic. Right-left axillary soft tissue densities with fatty hilus formation are non-glucose avid. Scattered subcentimeter mediastinal soft tissue reveals no evidence of facilitated fluorodeoxyglucose uptake. A hiatal hernia is noted. ABDOMEN AND PELVIS: Atherosclerotic calcification is defined in the abdominal aorta without evidence of dilatation, aneurysm formation. Pelvic arterial calcification is observed. Filter placement is noted in the inferior vena cava. Cyst formation is visualized in the right and left kidneys. Bilateral inguinal soft tissue densities reveal no evidence of facilitated FDG uptake. Dystrophic calcification is manifest within the prostate gland without evidence of quantitatively significant enhanced FDG uptake. SKELETAL: Degenerative changes defined in the cervical, thoracic and lumbar spine demonstrate no evidence for glucose hypermetabolism. Orthopedic hardware placement is noted in the mid-lower cervical spine. PET/PET/CT Tumor Base -Thigh Init IMPRESSION: 1. NEGATIVE EXAMINATION. There is no definitive quantitative scintigraphic evidence of recurrent-metastatic viable neoplasm. 2. Mild increased glucose concentration visualized in the left lower posterior hemithorax pulmonary parenchyma, pleural interface does not fulfill quantitative criteria for viable neoplasm. (Mandel et al, Annals of Internal Medicine, 138:724, 2003. Villarreal, et al, Chest 122:1918, 2002). 3. Metabolic and/or anatomic stability may be ensured in the left hemithorax pulmonary parenchymal abnormality with repeat FDG PET study and/or CT of the thorax in three months. (Xiu, Journal of Nuclear Medicine 45:88, P2004. Bjorn, Seminars in Thoracic and Cardiovascular Surgery 14:292, 2002). 4. Diffuse intestinal tract distribution of radiopharmaceutical is most consistent with physiologic tracer distribution. If intraluminal soft tissue mass formation is a diagnostic consideration, correlation with CT of the abdomen and pelvis with oral and intravenous contrast is recommended. (Dovu et al, Journal of Nuclear Medicine, 30:S269, 2003). Electronic Signature Tan Chris D.O. Electronically Signed: Tan Chris DO at 23:48 EST Tel , Service support , CC: Bob Cerrato MD; Ale Pepe MD Knitter Mechanic: Signed MODIFIED BARIUM Observed: 04/29/2018 Status: F Source: [place] SWALLOW STUDY 10:53 AM [facility] RE[facility]ITORY [facility] Speech Pathology [address] [place] [address] Modified Barium Swallow Study MR#: [id number] Acct: [id number] Name: BRIANNA POTTS Rep #: [id number] : 1950 67 From: Willa Ferguson M.A. [facility]-TELEGRAPH REPEATER INSTALLER PRIMARY / SECONDARY DIAGNOSIS: Dysphagia REFERRING PHYSICIAN: Dr. Cerrato CURRENT DIET: regular textures/thin liquids DENTITION: upper dentures/lower edentulous MENTAL STATUS: sufficient for participation in MBS RESPIRATORY STATUS: oxygenating on room air PREVIOUS MODIFIED BARIUM SWALLOW STUDY: n/a REASON FOR REFERRAL: further assessment of swallow function under fluoroscopy ordered d/t patient report of difficulty swallowing pills and solid textures MEDICAL HISTORY: bronchiectasis, abnormal lung CT, Factor 5 Leiden mutation heterozygous, numbness, urinary frequency, bipolar 1 disorder, SBO, penetrating abdominal trauma, Parkinson s Disease, HTN, GERD, depression, tobacco use, COPD, left sided abdominal pain, history of throat cancer and prostate cancer - both treated with surgical resection and did not require any chemo or radiation to his knowledge. STUDY FINDINGS: Patient participated in a Modified Barium Swallow (MBS) study on 04/29/2018. Dr. Mckinnon was the radiologist present for this evaluation. This study was recorded in the lateral view and images were sent to PACs for storage. The following consistencies were presented to this patient for analysis of oropharyngeal swallow function: thin liquid, pudding, and a regular texture Brenda Doone shortbread cookie. Results of the MBS are as follows: PENETRATION / ASPIRATION SCALE (BELTRAN): 1 = does not enter airway 2 = enters airway/above vocal folds/ejected 3 = enters airway/above vocal folds/not ejected 4 = enters airway/contacts vocal folds/ejected 5 = enters airway/contacts vocal folds/not ejected 6 = enters airway/below vocal folds/ejected 7 = enters airway/below vocal folds/not ejected despite effort 8 = enters airway/below vocal folds/no effort PENETRATION / ASPIRATION SCALE (SCORE): 1. Thin liquid teaspoon: 1 = does not enter airway 2. Thin liquid cup: 1 = does not enter airway 3. Thin liquid cup: 1 = does not enter airway 4. Thin liquid cup sequential swallows: 2 = enters airway/above vocal folds/ejected 5. Thin liquid straw: 1 = does not enter airway 6. Puddin = does not enter airway 7. Brenda Doone shortbread cookie: 1 = does not enter airway IMPRESSION ORAL PHASE CHARACTERIZED BY: LABIAL SEAL: no labial escape TONGUE CONTROL DURING BOLUS MANIPULATION: escape to floor of mouth BOLUS PREPARATION / MASTICATION: slow prolonged chewing/mashing with complete recollection BOLUS TRANSPORT / LINGUAL MOTION: slowed tongue motion ORAL RESIDUE: trace residue lining oral structures PHARYNGEAL PHASE CHARACTERIZED BY: INITIATION OF PHARYNGEAL SWALLOW: bolus head at posterior laryngeal surface of epiglottis at first hyoid excursion SOFT PALATE ELEVATION: no bolus between soft palate and pharyngeal wall LARYNGEAL ELEVATION: partial superior movement of thyroid cartilage/partial approximation of arytenoids cartilage to epiglottic petiole ANTERIOR HYOID EXCURSION: complete anterior movement EPIGLOTTIC MOVEMENT: complete epiglottic inversion LARYNGEAL VESTIBULE CLOSURE AT HEIGHT OF SWALLOW: complete laryngeal vestibule closure with no air/contrast in laryngeal vestibule PHARYNGEAL STRIPPING WAVE: pharyngeal stripping wave present / diminished PHARYNGOESOPHAGEAL SEGMENT OPENING: complete distension and complete duration with no obstruction of flow TONGUE BASE RETRACTION: trace column of contrast between tongue base and posterior pharyngeal wall PHARYNGEAL RESIDUE: trace residue within or on pharyngeal structures ESOPHAGEAL PHASE CHARACTERIZED BY: ESOPHAGEAL BOLUS CLEARANCE IN THE UPRIGHT POSITION: esophageal retention with retrograde flow through PES (trace) EFFECTS OF TREATMENT STRATEGIES ATTEMPTED: Reduced rate of intake = effective INTERPRETATION OF RESULTS: Patient presents with mild oropharyngeal dysphagia (R13.12). Oral phase primarily marked by slowed lingual motion for A-P bolus transfer and swallow onset w/ trace oral residue retention appreciated post deglutition. Pharyngeal phase primarily marked by delayed pharyngeal swallow onset timing resulting in suboptimal bolus location upon swallow onset contributing reduced closure of the airway during deglutition with laryngeal vestibule penetration (transient, ejected w/ swallow completion) with sequential swallows only. Penetration was eliminated with bolus volume adjustments. Screws/plates noted along cervical spine d/t prior fusion surgery. Esophageal phase marked by prominent cricopharyngeus with no impact noted on pharyngoesophageal segment opening, although trace residue retention appreciated w/ retrograde flow through PES into pharynx, which may contribute to sensation of food/pills sticking/not clearing as reported by patient. RECOMMENDATIONS DIET: regular textures/thin liquids COMPENSATORY STRATEGIES RECOMMENDED: reduced bolus volume (no sequential swallow), reduced rate of intake, thoroughly chew, use sauce/gravy to moisten foods, follow solids w/ a liquid chaser, trial meds whole in pudding followed by liquid wash, seated upright at 90 degrees during PO intake and remain upright for 30-60 minutes post meal (GERD precaution) ADDITIONAL RECOMMENDATIONS: Consider further esophageal workup due to the symptoms described above by the Patient (esophagram). No further skilled speech- language intervention warranted as the patient was able to comprehend and express recommended intake precautions detailed above with sufficient detail to suggest high likelihood of compliance. Provided brief overview of signs and symptoms of aspiration and increased risk as Parkinson s Disease progresses, with recommendation for the Patient to further discuss symptoms with PCP. No further skilled speech-language services warranted at this time targeting dysphagia. ADDITIONAL COMMENTS: Results and recommendations were discussed, and images reviewed with the Patient immediately following MBS completion, with the Patient verbalizing understanding and agreement with all recommendations and education provided. IMAGE COUNT: [id number] Willa Ferguson M.A. CCC-TELEGRAPH REPEATER INSTALLER [facility] Department of Speech-Language Pathology [address] [place] [id number] [phone] 04/29/18 1053 <Electronically signed by Willa Ferguson M.A. CCC-TELEGRAPH REPEATER INSTALLER> Date Willa Ferguson M.A. CCC-TELEGRAPH REPEATER INSTALLER Co-Signature Required for all Medicare patients Date/Time Co-Signature CC: SWALLOWING FUNCTION Observed: 04/29/2018 Status: F Source: [place] W/VIDEO 9:19 AM [facility] RE[facility] Imaging Services [address] [place] [id number] Swallowing Function w/Video MR#: [id number] Acct: [id number] Name: BRIANNA POTTS Rep #: [id number] : 1950 M 67 From: Matt Mckinnon MD PCP: Ale Pepe MD Status: REG CLI Study: Swallowing Function w/Video Date of Exam: 04/29/18 Exam# [id number] Ordering Dr: Bob Cerrato MD STUDY: SWALLOWING STUDY REASON FOR EXAM: Male, 67 years old. Dysphagia. TECHNIQUE: The examination was performed with Speech Pathology in attendance. Under fluoroscopic observation, the patient ingested thin barium, thick barium, barium pudding, and barium coated cracker. FLUOROSCOPY TIME: 1:20 minutes/seconds. 1323 spot images were obtained. RADIOLOGIST INVOLVEMENT: Radiologist was present and providing direct supervision. COMPARISON: None. FINDINGS: The following was observed during swallowing of the various mixtures of barium: Thin Barium: Transient penetration with ingestion of thin liquids. Barium Pudding: There was no evidence of aspiration or laryngeal penetration. Barium Coated Cracker: There was no evidence of aspiration or laryngeal penetration. RAD/Swallowing Function w/Video IMPRESSION: Transient penetration with ingestion of thin liquids. The swallow study findings were discussed with the patient by the speech pathologist at the conclusion of the examination. Please see speech pathology report for more information and recommendations. Electronically Signed: Matt Mckinnon MD at 10:04 EST Tel [phone], Service support , CC: Bob Cerrato MD; Ale Pepe MD Knitter Mechanic: Signed PULMONARY VISIT REPORT Observed: 04/16/2018 Status: F Source: [place] 9:55 AM [facility] [place] [address] [place] [address] OFFICE VISIT Date of Service: 04/16/18 MR#: [id number] Acct: [id number] Name: BRIANNA POTTS Rep #: [id number] : 1950 Provider: Bob Cerrato MD Age/Sex: 67/M Location: [facility] Status: Signed Assessment AND Plan Problems 1. Abnormal CT lung screening R91.8 2. Bronchiectasis without complication J47.9 3. Parkinson disease G20 Plan Patient's CAT scan shows multiple findings that cannot be verified with previous abdominal CT scans ranging from 2012 until 2016. 2 smaller nodules appear to be granulomas. However, left lower lobe does show new development of bronchiectasis and possible scarring. Patient does have a history of throat and prostate cancer in the past. Patient is also reporting some difficulty with swallowing that he associates with his Parkinson's disease. Will obtain a PET scan to evaluate for hypermetabolic area as this is very convoluted and biopsy would be high risk for a false negative. We will also obtain a swallow evaluation for possible aspiration leading to the development of bronchiectasis. Patient was given a prescription for an Acapella device to help with pulmonary toileting. Patient should continue with Symbicort therapy for now. Obtain PET scan, swallow study as ordered. Initiate Acapella twice daily. Continue Symbicort therapy. Orders Orders: Medications New: Plan Detail Follow Up 1 Month (A) HPI Lung Mass: Chief Complaint: Abnormal CT scan Details: Patient is a 67-year-old male, currently under the care of Dr. Pepe, who presents for evaluation secondary to an abnormal CT scan. Patient reports that he has complained of shortness of breath with exertion and had a screening CT scan secondary to prolonged tobacco use. Patient states that he has been asked to come to this visit for review of the results. Patient reports that he has been feeling drained recently. Patient does report shortness of breath and feels his exercise tolerance is approximately 100 feet. Patient states his ambulation is significantly complicated by his concomitant Parkinson's disease. Patient does report a cough on a daily basis, typically in the morning and productive of clear to white sputum. Patient does report a sharp stabbing type sensation localized to the left chest. Patient states this is 4 out of 10 and relatively constant. This is not exacerbated by palpation. Patient feels his Parkinson's disease is relatively controlled. Patient does have a shuffling gait and has had falls intermittently. Patient does state that he has had choking episodes recently. Patient reports being admitted to the hospital several times in the past with pneumonia, but this has been improved since he has been getting flu shots. Patient does report compliance with Symbicort therapy. 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 Patient is assuming he has been exposed to asbestos. Patient has been smoking since the age of 20. Patient does report that he is used nicotine patches as well as Wellbutrin in the past. Patient has never used Chantix therapy. Patient has tried to cut down recently, but states that stress is a major barrier to complete smoking cessation. Patient reports a history of throat cancer and prostate cancer. Both of these were treated with surgical resection and did not require any chemo or radiation to his knowledge. Testing personally reviewed with the patient Complete PFT (04/11/2018): Irreversible moderately severe large airways obstructive ventilatory defect with preserved diffusion capacity (FVC 76%, FEV1 62%, TLC 92%, DLCO 85%) Low-dose CT chest (04/09/2018): Bronchiectasis appreciated at the left lower lobe and 3 reported nodules, 5 x 5 mm, rounded and calcified, 3 x 3 mm smooth and rounded without calcification and 32 x 14 mm pleural-based in the left lower lobe Documentation reviewed 7 pages of documentation were reviewed from patient's primary care physician. Patient reportedly has had increased urinary frequency and thirst and is an active every day smoker. Patient had reported numbness of his left fifth digit that is subjectively worsening HPI Comments Details: Intake Vital Signs04/16/18 Height 6 ft 04/16/18 Weight: 73.482 kg 04/16/18 Body Mass Index (BMI) 21.9 Intake Visit Reasons: Lung Mass Chief Complaint: follow up Accompanied by: Self Allergies codeine Allergy (Verified 04/16/18 08:36) Swelling of face and fingers ketorolac tromethamine [From Toradol] Adverse Reaction (Verified 04/16/18 08:36) Nausea oxycodone HCl [From Percocet] Adverse Reaction (Verified 04/16/18 08:36) Upset Stomach sucralfate [From Carafate] Adverse Reaction (Verified 04/16/18 08:36) Nausea tramadol HCl [From Ultram] Adverse Reaction (Verified 04/16/18 08:36) Nausea Medications traZODone [Desyrel] 100 - 200 mg PO QHS PRN 02/10/13 [History Confirmed 04/16/18] Lamotrigine [Lamictal] 150 mg PO QHS 07/08/13 [History Confirmed 04/16/18] Hydrocodone Bitart/Apap 5-325 [Pollock 5/325] 1 - 2 tab PO TID PRN 01/11/17 [History Confirmed 04/16/18] Venlafaxine XR [Effexor Xr] 150 mg PO QHS 01/11/17 [History Confirmed 04/16/18] lisinopril 10 mg tablet 10 mg PO DAILY #90 tab 04/05/17 [Rx Confirmed 04/16/18] albuterol sulfate HFA 90 mcg/actuation aerosol inhaler 1 puff INHALATION Q6H PRN #1 inh 06/12/17 [Rx Confirmed 04/16/18] budesonide-formoterol HFA 160 mcg-4.5 mcg/actuation aerosol inhaler 2 puff INHALATION BID #1 inh 06/12/17 [Rx Confirmed 04/16/18] carbidopa ER 25 mg-levodopa 100 mg tablet,extended release 1 tab PO TID tab 06/12/17 [History Confirmed 04/16/18] esomeprazole magnesium 40 mg capsule,delayed release 20 mg PO DAILY #90 cap 06/12/17 [Rx Confirmed 04/16/18] memantine 10 mg tablet 10 mg PO BID 06/12/17 [History Confirmed 04/16/18] propranolol XL 120 mg capsule,extended release 24 hr 120 mg PO QDAY 06/12/17 [History Confirmed 04/16/18] hydrochlorothiazide 12.5 mg capsule 12.5 mg PO QDAY #90 cap 03/13/18 [Rx Confirmed 04/16/18] gabapentin 250 mg/5 mL oral solution 800 mg PO TID #1440 ml 04/04/18 [Rx Confirmed 04/16/18] Acapella #1 [id number] 04/16/18 [Rx Confirmed 04/16/18] PFSH Medical History Factor 5 Leiden mutation, heterozygous (Chronic) Bipolar 1 disorder (Chronic) Surgical History H/O [...] do you participate in: walking frequency: daily Review of Systems Const CONSTITUTIONAL: Positive fatigue; negative anorexia, body ache, chills, daytime sleepiness, fever(s), night sweats, oral thrush, stops breathing during sleep, weight loss, sleeping in chair, weight loss, weight gain, frequent colds, seasonal allergies, other, headache(s) or orthopnea EETM Ear Nose Throat Mouth: Positive other (sore mouth from inhaler use.) and hearing normal; negative hoarseness, dry mouth in morning, change in vision, itchy eyes, eye pain, swallowing Difficulty, ear pain, headache(s), mouth pain, nasal congestion, nasal discharge, sinus pain, sinus pressure, sore throat, hard of hearing, nose bleed or post nasal drip Cardio Cardiovascular: Negative chest pain, chest pain at rest, chest pain with activity, irregular heart rhythm, edema, shortness of breath when lying down, palpitations, other or murmur Resp Respiratory: Positive as per HPI, shortness of breath shortness of breath: Positive with activity and cough cough: Positive non-productive; negative pain with cough, wheezing, chest congestion, chest tightness, pain on inspiration, inhalers, increase use of rescue inhalers, snoring, apnea or other Gastro Gastrointestional: Negative bloody stools, change in appetite, difficulty swallowing, reflux, hematemesis, melena stool, loose stool, constipation or other Genitourinary: Negative blood in urine, nocturia, pain with urination or other Musc Musculoskeletal: Negative body pain, back pain, neck pain or other Skin/Breast Skin/Breast: Negative dry skin, itching, unusual bruising, breast lump, other or rash Neuro Neurological: Positive weakness; negative restless legs, confusion or other Psych Psychocological: Negative abnormal sleep pattern, anxiety, thoughts of hurting self/others, hopelessness or other Lymph Lymphatic: Negative easy bleeding, easy bruising, other or swollen lymph nodes Exam Const Constitutional: Positive conversant, cooperative, in no acute respiratory distress, healthy appearing, well developed, well nourished, good hygiene, appears older than stated age and thin; negative wearing supplemental oxygen Head Head: Positive normocephalic and atraumatic; negative cyanosis of lips/distal nose, frontal sinus tenderness or maxillary sinus tenderness Eyes Eye: Positive clear conjunctiva; negative nystagmus, scleral abnormality or cataract present Ears Ear: Positive hearing normal and external ears normal; negative hard of hearing Nose Nose: Positive external nose normal, septum normal and no nasal discharge; negative epistaxis or nasal polyp Mouth Mouth: Positive oral mucosae normal, no lesions and posterior oropharynx is adequate; negative post nasal drip, malodorous breath or oral thrush present Mallampati Score: II: Mallampati Score Neck Neck: Positive normal visual inspection, full ROM and trachea midline; negative lymphadenopathy or JVD Chest Wall Chest: Positive normal inspection of the chest and symmetric chest movement; negative crepitus or tenderness Resp lung sounds: Positive clear to auscultation, prolonged expiratory time and diminished; negative wheezes, rhonchi, rales, use of accessory muscles, wheeze present on forced exhalation or dullness to percussion Cardio Cardiac: Positive regular rate, regular rhythm, S1 normal and S2 normal; negative murmur, rub or gallop GI GI: Positive normal to inspection and normal bowel sounds; negative distended, ascites or epigastric tenderness Genitourinary: Positive deferred Musc Musculoskeletal: Positive kyphosis; negative using an assistive device for ambulation, scoliosis or steady gait (Shuffling gait noted) Skin Pulmonary Skin Exam: Positive intact; negative rash, lesion, ulcers, erythema or dermal atrophy Pulses Pulse: Yes radial pulses present Extremities Extremities: Yes capillary refill normal, No clubbing, No cyanosis, No edema, No stasis dermatitis Neuro Neurologic: Yes conversant, Yes normal concentration, Yes understands questions, Yes cooperative, Yes normal cognition, Yes normal coordination, Yes tremor Lymph Lymphatic: No lymphadenopathy Psych Appearance: Positive grossly normal Mental Status: Positive mental status grossly normal Mood: Positive congruent mood Affect: Positive normal affect Pulmonary Procedure Smoking Cessation Education: Yes education provided, 3-10 minutes, expresses understanding, continue to encourage smoking cessation, needs reinforcement and other (Wants to know findings prior to any attempts at smoking cessation) Coding Level of Care Code Off vis,new,level [address] lung screening R91.8 Bronchiectasis without complication J47.9 Bronchiectasis type: uncomplicated Parkinson disease G20 04/16/18 0955 <Electronically signed by Bob Cerrato MD> Date Bob Cerrato MD Cosigner Signature: Date (if applicable) CC: Ale Pepe MD PULMONARY FUNCTION Observed: 04/12/2018 Status: F Source: [facility] REPORT COMP 5:46 AM [facility] RE[facility] Pulmonary Services/Neurology [address] [place] [address] MR#: [id number] Acct: [id number] Name: BRIANNA POTTS Rep #: [id number] : 1950 67 From: Bob Cerrato MD Referring Dr: Zane Barbosa NP Status: REG CLI Ordering Dr: Date: Location: [facility] Sex: M C COMPLETE PULMONARY FUNCTION TEST INTERPRETATION Brief HPI: Patient is a 67 year old male, currently under the care of Zane Barbosa, who presents to [facility] for complete pulmonary function tests secondary to diagnosis of dyspnea. Respiratory therapist reports good effort and reproducible results. Interpretation: Forced expiration spirometry shows a moderately-severe large airways obstructive ventilatory defect with an FEV1 of 62% predicted. There is no significant bronchodilator response by strict ATS criteria. Spirograms are of good quality and plateau slowly, indicating slowly emptying areas of the lungs. The respiratory flow volume loop shows decreased expiratory flow rates at all lung volumes consistent with airway obstruction. Lung volumes by body plethysmography show a normal total lung capacity at 6.51 L, 92% predicted. All other lung volumes are within normal limits. Diffusion capacity by carbon monoxide is normal at 85% predicted. The airway resistance is elevated. No previous pulmonary function tests were available for review. Impression: Irreversible moderately severe large airways obstructive ventilatory defect with preserved diffusion capacity consistent with chronic bronchitis 04/12/18 0546 <Electronically signed by Bob Cerrato MD> Date Bob Cerrato MD CC: Bob Cerrato MD; Ale Pepe MD; Zane Barbosa NP Date Dictated: 04/11/181120 Date Transcribed: 04/11/181120 Knitter Mechanic: DAVID Signed ARTERIAL Observed: 04/09/2018 Status: F Source: [facility] 2:31 PM [facility] Cardiovascular Services [address] [place], [place] [address] [address] Ankle Brachial Index 04/09/18 1054 MR#: [id number] Acct: [id number] Name: BRIANNA POTTS Rep #: [id number] : 1950 67 From: Mirza Ceron MD Attending Dr: Zane Barbosa NP Status: REG CLI Ordering Dr: Zane Barbosa SUPERVISOR TYPE DISK QUALITY CONTROL-C Date: 04/09/18 Location: [facility] Sex: M C Admitted: Reason For Study: BLE burning/numbness Left Segmental Pressures Left brachial= 136mmHg. Left posterior tibial artery = 146mmHg. Left dorsalis pedis artery = 142mmHg. The left dorsalis pedis waveforms are triphasic. The left posterior tibial artery waveforms are triphasic. Right Segmental Pressures Right brachial= 134mmHg. Right posterior tibial artery = 153mmHg. Right dorsalis pedis artery = 150mmHg. The right dorsalis pedis waveforms are triphasic. The right posterior tibial artery waveforms are triphasic. Indices The right ankle brachial index by the dorsalis pedis is 1.1. The right ankle brachial index by the posterior tibial artery is 1.1. The left ankle brachial index by the dorsalis pedis is 1.0. The left ankle brachial index by the posterior tibial artery is 1.1. Interpretation Summary Resting ankle-brachial indices appear bilaterally normal. Bilateral dorsalis pedis and posterior tibialis waveforms normal and triphasic. Ordering Physician: Zane Barbosa Referring Physician: Zane Barbosa Performed By: Jaqui Blackwell RVT 04/09/18 1431 Date Mirza Ceron MD CC: Ale Pepe MD; Zane Barbosa SUPERVISOR TYPE DISK QUALITY CONTROL Date Dictated: 04/09/18 1054 Date Transcribed: 04/09/18 143 Knitter Mechanic: Signed LOW DOSE CT LUNG Observed: 04/09/2018 Status: F Source: [facility] SCREENING 11:17 AM [facility] Imaging Services [address] [place] [place] [address] Lung Screening MR#: [id number] Acct: [id number] Name: BRIANNA POTTS Rep #: [id number] : 1950 M 67 From: London Fischer DO PCP: Ale Pepe MD Status: REG CLI Study: Low Dose CT Lung Screening Date of Exam: 04/09/18 Exam# [id number] Ordering Dr: Zane Barbosa SUPERVISOR TYPE DISK QUALITY CONTROL-C STUDY: LOW DOSE CT LUNG CANCER SCREENING REASON FOR EXAM: Male, 67 years old. Three-quarter pack a day smoking history for 47 years. RADIATION DOSAGE (If Supplied By Facility): CTDIvol = ( 3.02 ) mGy, DLP = ( 109.48 ) mGycm TECHNIQUE: No contrast was administered. Low dose technique was utilized (average mAS-38 and kVp 120). 1.25 mm axial source images with a slice interval of 1.25- mm were reconstructed in lung windows. 2.5 mm axial source images with a slice interval of 2.5-mm were reconstructed in lung windows. 5.0 mm axial source images with a slice interval of 5.0-mm were reconstructed in soft tissue windows. Nodule measured using lung windows on PACS and/or independent workstation with automated measurement of minimum and maximum diameter. Nodule measurement reported as average diameter rounded to the nearest whole number. Growth is defined as an increase ins size of greater than 1.5 mm. COMPARISON: None. NODULES: Nodule #: 1 Density: Solid Lung location: Right upper lobe: 1. Cm from pleura Location in series: Series Number: 2 Image: 93 Size - D1 x D2 mm: 5 x 5 mm: 5 mm average diameter Margin: Smooth Shape: Rounded Calcification: Yes Fat: No Temporal comparison: None Nodule #: 2 Density: Solid Lung location: Right lower lobe: 1 cm from pleura Location in series: Series Number: 2 Image: 160 Size - D1 x D2 mm: 3 x 3 mm: 3 mm average diameter Margin: Smooth Shape: Rounded Calcification: No Fat: No Temporal comparison: None Nodule #: 3 Density: Solid Lung location: Left lower lobe: Pleural-based Location in series: Series Number: 2 Image: 151 Size - D1 x D2 mm: 32 x 14 mm: 30 mm average diameter Margin: Irregular Shape: Oval Calcification: No Fat: No Temporal comparison: None This has the appearance of a pleural-based mass versus area of consolidation. There is marked scarring in the adjacent left lower lobe. Total lung nodules (excluding granulomas): 3 Emphysema: There are diffuse emphysematous changes lungs. There is bilateral apical pleural scarring. Endobronchial lesion: No Aorta: There is mild atherosclerotic tortuosity of the thoracic aorta. Coronary arteries: Normal Heart: Normal Pulmonary artery: Normal Mediastinal nodes: Normal Other chest and abdominal findings: There are degenerative changes of the thoracic spine. There is left basilar pleural thickening. CT/Low Dose CT Lung Screening IMPRESSION: 1. Large pleural-based mass in the posterior left lung base. 2. Small nodular density in the right lower lobe with a calcified granuloma in the upper lobe. 3. Emphysema. Lung-RADS category 4B - Chest CT with or without contrast, PET/CT and/or tissue sampling can be obtained depending on the probability of malignancy and comorbidities. IMPORTANT NOTES FOR USE: ACR Lung-RADS Version 1.0 Assessment Categories Release Date: August 10, 2013 Category: Coded 0-4 bases on nodule(s) with highest degree of suspicion. Negative screen is defined as categories 1 and 2; a positive screen is defined as categories 3 and 4. Category 3 and 4A nodules that are unchanged on interval CT should be coded as category 2, and individuals returned to screening in 12 months. Category 4X: Category 3 or 4 nodules with additional imaging findings that increase the suspicion of lung cancer, such as spiculation, GGN that doubles in size in 1 year, enlarged lymph notes, etc. Category Modifiers: S (significant finding unrelated to lung cancer) and C (prior history of treated lung cancer) may be added to the 0-4 Lung-RADS Electronically Signed: London Fischer DO at 21:58 EST Tel [phone], Service support , CC: Ale Pepe MD; Zane Barbosa NP Knitter Mechanic: Signed INTERNAL MEDICINE Observed: 03/14/2018 Status: F Source: [facility] OFFICE VISIT 1:20 PM [facility] [address] [place] [address] [place] [address] OFFICE VISIT Date of Service: 03/13/18 MR#: [id number] Acct: [id number] Name: BRIANNA POTTS Rep #: [id number] : 1950 Provider: Ale Pepe MD Age/Sex: 67/M Location: [facility] Status: Signed Intake Vital Signs03/13/18 Body Mass Index (BMI) 19.6 03/13/18 Height 6 ft 03/13/18 Weight: 160 lb Intake Visit Reasons: FU Chief Complaint: follow up [employer] Consultant Required: No Accompanied by: None Is patient [...] 07/08/13 [History Confirmed 06/12/17] Hydrocodone Bitart/Apap 5-325 [Pollock 5/325] 1 - 2 tab PO TID [...] QDAY #90 cap 03/13/18 [Rx Confirmed 03/13/18] PFSH Medical History Bipolar 1 disorder (Chronic) [...] acute distress Orientation: alert, awake, oriented x3 [facility] Head: atraumatic, normal to inspection, normocephalic [...] Route Admin Location Lot Number Expiration Date NDC Aircraft Manager 45 mcg IM Left Deltoid [id number] 10/12/18 61647-577-30 SEQIRUS VIS Given Date VIS Publication Date [...] shot given. This note was generated with Pango dictation software. It may contain incorrect words, spelling, and punctuation that were not noted in checking the note before signing. Plan Detail Other Orders Orders: Other Medications Refilled: Discontinued: Fluad 2017- 65yr up(PF)45 mcg(15 mcgx3)/0.5 mL intr45 mcg (0.5 mL) IM ONCE #1 0RF NS Z23 amuscular syringe (flu vac 2017 [id number](PF)) Discontinued Reason: Office Medication has been Doc umented as given Coding Level of Care Code Off vis,est,level 4 Diagnoses Urinary frequency R35.0 Numbness R20.0 Essential hypertension I10 Hypertension type: essential hypertension Tobacco use Z72.0 Health care maintenance Z00.00 03/14/18 1320 <Electronically signed by Ale Pepe MD> Date Ale Pepe MD Cosigner Signature: Date (if applicable) CC: COMPREHENSIVE METABOLIC Collected: 03/14/2018 Status: F Source: [facility] 12:13 PM [facility] REPOS[facility] Order Comment: Comments: Fasting Comments: Fasting [...] 6 Performed By: #### L500.4050, L500.4100 #### [facility] [address] [place], [place], [address] LIPID PROFILE Collected: 03/14/2018 Status: F Source: [facility] 12:13 PM [facility] RE[facility] Order Comment: Comments: Fasting Comments: Fasting [...] 35 Performed By: #### L500.4050, L500.4100 #### [facility] [address] [facility] [place], [place], [address] URINALYSIS, COMPLETE Collected: 03/14/2018 Status: F Source: [facility] 12:13 PM [facility] RE[facility] Order Comment: Comments: Fasting How was Urine Obtained? STRAP BUCKLER MACHINE TO SPECIFY TYPE CODE TESTS RESULT OUT [...] URINE SEEN Performed By: #### L400.0001 #### [facility] [address] [place], [address] EMERGENCY DEPARTMENT Observed: 12/21/2017 Status: F Source: [facility] SUMMARY 11:51 PM [facility] Medical Records Department [address] [place] [address] Emergency Department Summary 12/21/17 2223 MR#: [id number] Acct: [id number] Name: BRIANNA POTTS Rep #: [id number] : 1950 67 From: Surendra Cordova MD [...] Epigastric pain This note was generated with Pango dictation software. It may contain incorrect words, [...] problems, contact your Primary Care Provider. Call [facility] ([phone]) or report to the closest Emergency Room. Call 911 if necessary. 12/21/17 2351 <Electronically signed by Surendra Cordova MD> Date Surendra Cordova MD Cosigner Signature (If Indicated): Date CC: Ale Pepe MD ABDOMEN/PELVIS WITHOUT Observed: 12/21/2017 Status: F Source: [facility] 9:29 PM [facility] Imaging Services [address] [place] [address] Abdomen/Pelvis without Cont MR#: [id number] Acct: [id number] Name: BRIANNA POTTS Rep #: [id number] : 1950 M 67 From: Valeriano Verma MD PCP: Ael Pepe MD Status: REG ER Study: Abdomen/Pelvis without Cont Date of Exam: 12/21/17 Exam# [id number] Ordering Dr: Surendra Cordova MD STUDY: CT [...] CC: Ale Pepe MD; Surendra Cordova MD Knitter Mechanic: Signed CBC W/DIFF, AUTOMATED Collected: 12/21/2017 Status: F Source: [facility] 9:20 PM [facility] TYPE CODE TESTS RESULT OUT OF [...] Lymph 2.79 Performed By: #### L100.0100 #### [facility] [address] [place], [address] COMPREHENSIVE METABOLIC Collected: 12/21/2017 Status: F Source: [facility] 9:20 PM [facility] TYPE CODE TESTS RESULT OUT OF [...] Performed By: #### L500.4050, L501.2450, L501.4010 #### [facility] [address] [place], [place], [address] LIPASE Collected: 12/21/2017 Status: F Source: [facility] [place] 9:20 PM [facility] TYPE CODE TESTS RESULT OUT OF RANGE REFERENCE UNITS LAB L501.2450 73-393 U/L Normal LIPASE 249 Performed By: #### L500.4050, L501.2450, L501.4010 #### [facility] [address] [place], [place], [address] TROPONIN-I Collected: 12/21/2017 Status: F Source: [facility] 9:20 PM [facility] TYPE CODE TESTS RESULT OUT OF RANGE REFERENCE UNITS LAB L501.4010 <0.045 ng/mL Normal < 0.015 TROPONIN-I Result Comment: TROPONIN-I EXPECTED VALUES <0.045 Negative 0.045 - 0.590 Consistent with Cardiac Damage > OR = 0.600 Critical Value Not every elevated troponin is indicative of AL. These values should be used with clinical judgement in examining the patient's clinical picture for diagnosis. To establish a diagnosis of AL versus myocardial injury, there must be a demonstrated rise and/or fall in the troponin values, in addition to ischemic symptoms, EKG changes, new regional wall motion abnormality, and/or angiographical evidence. PLEASE NOTE: REFERENCE RANGES EDITED 17 Performed By: #### L500.4050, L501.2450, L501.4010 #### [facility] [address] [place], [address] TOXICOLOGY SCREEN,UR Collected: 10/24/2017 Status: F Source: [place] 11:57 AM [facility] TYPE CODE TESTS RESULT [...] on the same specimen through Client Services ([phone]) if contacted within 48 hours of initial testing. [1]Substance Abuse and Mental Health Services Administration (2012). Clinical Drug Testing in Primary Care Technical Assistance Publication Series 32. Department of Health and Human Services, [place], p.10. These tests were developed and their performance characteristics determined by [facility]'s [facility] [place] ( [facility]). They have not been cleared or a pproved by the FDA. [facility] is regulated under CLIA as qualified to perform high complexity testing. These tests are used for clinical purposes. They should not be regarded as investigational or for research. Performed By: #### UTOX2 #### [facility] [address] [place], [place] [address] CNCO Observed: 09/12/2017 Status: COMPLETED Source: [place] 12:00 AM [facility] REPOSITORY Letter Text [address] [place] [address] [phone] 09/12/2017 Brianna Potts [address] [id number] Dear Mr. Potts: Due to a change in the provider's schedule, it has been necessary to reschedule your appointment. Enclosed please find a new appointment reminder that will replace the one previously sent to you. If this appointment is not convenient for you, please contact our office at [phone]. Thank you for choosing the [facility] as your Healthcare Provider. Sincerely, [facility] Enclosure CNCO Observed: 09/12/2017 Status: COMPLETED Source: [place] 12:00 AM [facility] REPOS[facility] Letter Text [address] [place] [address] [phone] 09/12/2017 Brianna Potts [address] [phone] Dear Mr. Potts: Due to a change in the provider's schedule, it has been necessary to reschedule your appointment. Enclosed please find a new appointment reminder that will replace the one previously sent to you. If this appointment is not convenient for you, please contact our office at [phone]. Thank you for choosing the [facility] as your Healthcare Provider. Sincerely, [facility] Enclosure PROGRESS Observed: 08/15/2017 Status: COMPLETED Source: [place] 12:49 PM [facility] REPOS[facility] HNO ID: [id number] Author: Seymour Canchola Service: (none) Author Type: Physician Type: Progress Notes Filed: 09/04/2017 2:38 PM Note Text: Seymour Canchola MD Department of Orthopaedics Orthopaedics [address] [facility] [address] Dept: [phone] Dept August 15, 2017 CHIEF COMPLAINT: Post [...] AND NO CHANGE COMPARED TO PREVIOUS EXAM. Knitter Mechanic: PSCB ? Transcribe Date/Time: August 11:48A Dictated by [...] rotator cuff debridement - ARTHROTOMY,OPEN REPAIR MENISCUS [phone] 7 open procedures from [phone] - COLONOSCOP W/ OR W/O [facility] SPEC 07/03/06 - FIX FLEX TENDON,FINGER/HAND,EACH 1988 repair left flex tendons, rad art and med n laceration - HEMORRHOIDECTOMY - INCISE FINGER TENDON SHEATH Left 07/15/2015 Left ring trigger finger release - INS INTRVAS VC FILTR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
== END ==
PROVIDERS: Family Provider Internal Medicine; PCP Internal Medicine; Visit Provider Internal Medicine Critical Care Medicine
DX: R91.8 Other nonspecific abnormal finding of lung field (principal); J47.9 Bronchiectasis, uncomplicated; C61 Malignant neoplasm of prostate; Z85.819 Personal history of malignant neoplasm of unspecified site of lip, oral cavity, and pharynx
CPT/HCPCS: 78815; A9552

== ENCOUNTER 2018-08-20 13:01 | Emergency (ER) | payer MEDICARE, SELFPAY ==
[2018-06-10 13:58] VITALS: BMI 21.9
[2018-08-20 13:02] VITALS: BP 134/80; PULSE 67; RESP 16; TEMP 36.9; O2SAT 96; BMI 20.9
--- NOTE | 2018-08-20 13:17 | CT_ITS ---
STUDY: CT BRAIN WITHOUT CONTRAST REASON FOR EXAM: Male, 68 years old. Increasing weakness one month, history of Parkinson's disease. Prostate and throat cancer. RADIATION DOSAGE (If Supplied By Facility): CTDIvol = ( 44.99 ) mGy, DLP = ( 796.11 ) mGycm TECHNIQUE: Transaxial CT imaging of the brain was performed without administration of intravenous contrast material. Sagittal and coronal 2-D MPR Individualized dose optimization techniques were used for this CT. COMPARISON: MRI brain 05/20/2017.. FINDINGS: Mucoperiosteal thickening of the bilateral maxillary sinuses with prior right antrectomy. Multifocal the comparison study of thickening of bilateral ethmoid sinuses, the base of the right frontal sinus, and sphenoid sinuses. Small mucous retention cyst of left sphenoid sinus. Mastoid air cells and middle ear cavities clear. Craniofacial osseous structures intact. Extracranial soft tissues including orbital contents exhibit no acute process. Mild symmetric expansion of lateral ventricles and extra-axial spaces consistent with age-related cerebral atrophy. No significant chronic low-density changes of the white matter. No acute intracranial bleed, mass or mass effect nor any specific evidence of acute territorial infarct. CT/Brain/Head without Contrast IMPRESSION: Diffuse paranasal sinus disease, chronic. No acute intracranial process. Electronically Signed: Tan Billy MD at 13:59 EDT Tel , Service support ,
--- NOTE | 2018-08-20 13:18 | EKG12_ITS ---
Test Reason : WEAKNESS Blood Pressure : / mmHG Vent. Rate : 055 BPM Atrial Rate : 055 BPM P-R Int : 000 ms QRS Dur : 080 ms QT Int : 388 ms P-R-T Axes : 000 062 049 degrees QTc Int : 371 ms Sinus Bradycardia Confirmed by BRIAN WHYTE ([id number]), publishing editor SANDY BABIN ([id number]) on 08/25/2018 2:15:23 PM Referred By: ANGIE Confirmed By:BRIAN WHYTE
--- NOTE | 2018-08-20 13:25 | ED.VISSUMM ---
- ER Visit Summary Date of Service: 08/20/18 Chief Complaint: Weakness and numbness History of Present Illness: The patient is a 68 M with a history of Parkinson's disease and neuropathy. Patient reports numbness over his entire body for the last 1 month. He states he first noted it when he could not feel the water from the shower hitting his back. He is also complaining of generalized weakness. Patient does report multiple falls at home and does live alone. He states he currently has some mild pain in the left flank. Patient denies any recent medication changes. Physical Examination: Vital signs unremarkable. Patient sitting upright in bed no acute distress. Heart is regular rate and rhythm. Lung sounds are clear. Abdomen is soft nontender. Back examination reveals mild tenderness in the left lumbar paraspinals. No ecchymosis or abrasion. Neuro exam reveals mild weakness in the right hand with hand grasp, but he does have normal strength that is equal with push and pull of the upper extremities. On lower extremity examination patient is able to lift both legs off the bed but he does struggle to do so. He has 2+ right patellar reflex and 1+ left patellar reflex. He has strong distal pulses. He reports decreased sensation throughout. Test Results: EKG is sinus bradycardia 55 bpm. No sign of acute ischemia. Head CT shows diffuse chronic sinus disease with no acute process. CBC and chemistry studies normal. LFTs normal. TSH is normal. Urinalysis shows no blood or sign of kidney infection. Emergency Department Course and Treatment: Patient is given IV fluids. At this time I have no definitive cause for his generalized paresthesias. He is scheduled to see his neurologist next in December. Patient was seen by social work and case management. Home health has been arranged for him. Patient is declining admission to the hospital. I did speak with patient's primary care physician to update her on his current exam findings and plan. Treatment Plan: [] Disposition: Discharge Impression: Paresthesias and generalized weakness This note was generated with [employer] dictation software. It may contain incorrect words, spelling, and punctuation that were not noted in review of the chart prior to signing ED Disposition - Plan for ED Patient: Disposition: Home or Assisted Living Instructions: ED Weakness UKO, ED Paraesthesias Referrals: Ale Pepe MD [Primary Care Provider] - 1 Week
[2018-08-20] MEDS: 0.9% Normal Saline 1,000 ML 15 ML IV (13:35)
[2018-08-20 14:02] LABS: Absolute Lymphocyte Count 2.24 X10^3/ul (0.83-4.51); Absolute Neutrophil Count 5.7 X10^3/uL (2.0-7.7); Basophil# 0.12 X10^3/uL; Basophil% 1.3 % (0-1); Eosinophil# 0.37 X10^3/uL; Eosinophils% 3.9 % (0-5); Hematocrit 44.6 % (40-54); Hemoglobin 14.8 g/dl (13.0-16.5); Lymphocyte # 2.24 X10^3/ul (4.0); Lymphocyte % 23.9 % (19-41); Mean Corp Hgb Conc 33.2 g/gl (32-36); Mean Corpuscular Hgb 30.3 pg (27.0-32.0); Mean Corpuscular Volume 91.4 fL (80-94); Mean Platelet Vol. 9.1 fl (6.2-12.0); Monocyte# 0.93 X10^3/uL; Monocyte% 9.9 % (0-10); Neutrophil % 60.7 % (47-70); Platelet Count 282 K/mm3 (150-450); RBC Distribution Width CV 13.5 % (11.6-14.6); RBC Distribution Width SD 44.3 fl (35.1-43.9); Red Blood Count 4.88 M/mm3 (4.6-6.2); White Blood Count 9.4 K/mm3 (4.4-11.0)
[2018-08-20 14:03] LABS: POSITIVE COUNT NO; POSITIVE DIFFERENTIAL NO; POSITIVE MORPHOLOGY NO
[2018-08-20 14:08] LABS: AST(SGOT) 10 U/L (15-37); Alanine Aminotransfer ALT/SGPT 15 U/L (16-61); Albumin, Serum 3.9 g/dL (3.2-5.0); Alkaline Phosphatase 115 U/L (45-117); Anion Gap 5 (5-15); BUN 10 mg/dL (7-18); BUN/Creat Ratio 8.6 RATIO (10-20); Bilirubin, Direct 0.09 mg/dL (0.00-0.30); Calcium,Total 8.8 mg/dL (8.5-10.1); Chloride 105 mmol/L (98-107); Creatinine, Serum 1.16 mg/dL (0.70-1.30); EST Glomerular Filtration Rate 67 mL/min (>60); Est Glom Filt Rate - Afr Amer 81 mL/min (>60); Estimated Creatinine Clearance 61.05 ml/min; Glucose 96 mg/dL (74-106); Potassium 3.9 mmol/L (3.5-5.1); Protein, Total 7.9 g/dL (6.4-8.2); Sodium Level 141 mmol/L (136-145); Thyroid Stim Hormone (TSH) 1.58 uIU/mL (0.358-3.74)
--- NOTE | 2018-08-20 15:00 | CM.ED ---
Social Work Assessment Referral Date: 08/20/18 Date of Assessment: 08/20/18 Informant: DR. JONES Reason for Consult: DISCHARGE PLANNING/RESOURCES Information obtained from: PATIENT Living Arrangements: PATIENT LIVES HOME ALONE IN AN APARTMENT IN A [facility]. HOME IS 1 STORY WITH BASEMENT AND 3 STEPS TO ENTER. DME: CANE, BORROWED WALKER FROM NEIGHBOR Employment/Financial: RETIRED Supports: PATIENT STATES SUPPORT FROM NEIGHBOR AND LIMITED SUPPORT FROM DAUGHTER, EZEKIEL. Social/Family Stressors: PATIENT REPORTS HX OF PARKINSON'S AND HAS BEEN BECOMING GRADUALLY WEAKER OVER THE LAST MONTH. PATIENT PRESENTS TO ED TODAY WITH NUMBNESS AND GENERALIZED WEAKNESS. Mental Health History: PATIENT ADMITS TO HX OF MENTAL HEALTH. Diagnoses: ANXIETY, DEPRESSION, BIPOLAR DISORDER Medications: SEE [facility] Physicians/Practitioners: PATIENT FOLLOWS WITH THE COUNSELING CENTER. Substance Abuse History: PATIENT DENIES HX OF SUBSTANCE ABUSE Interventions: SOCIAL SERVICE ASSESSMENT RESOURCES PROVIDED ON [facility] AGENCY ON AGING AND [employer] PATIENT WANTING HOME HEALTH REFERRAL- [employer] WASTE REMOVER TO SET UP Assessment: PATIENT IS A 68 Y/O MALE WHO LIVES HOME ALONE IN AN APARTMENT. PATIENT STATES APARTMENT SET UP IS 1 FLOOR WITH BASEMENT AND 3 STEPS TO ENTER. PATIENT USES A CANE FOR ASSISTANCE WITH AMBULATION AND STATES DROVE SELF TO HOSPITAL. DISCUSSED NEEDS FOR HOME GOING AND PATIENT IS REQUESTING REFERRAL FOR HOME HEALTH P.T./AIDE. PATIENT FOLLOWS WITH DR. NASCIMENTO FOR PRIMARY CARE. PATIENT ADMITS TO HX OF ANXIETY, DEPRESSION AND BIPOLAR. PATIENT IS TREATED WITH MEDICATION AND FOLLOWS WITH THE COUNSELING CENTER. PATIENT GIVEN INFORMATION ON [facility] AGENCY ON AGING AND LOCAL [employer] SUPPORT GROUP. DISCUSSED CASE WITH DR. JONES AND HAZARDOUS WASTE REMOVER, SARAH. NÚÑEZ TO SET UP HOME HEALTH. WILL CONTINUE TO FOLLOW NEEDED. PLAN: HOME WITH REFERRAL TO HOME HEALTH THROUGH [facility].
[2018-08-20] MEDS: Morphine 2 MG/ML Syringe IV (15:01)
[2018-08-20 15:02] VITALS: BP 133/86; PULSE 61; RESP 18; O2SAT 97
--- NOTE | 2018-08-20 15:41 | CASEMGMT ---
Case Management Progress Note: Patient with H/o Parkinson's Dz, lives alone, presents to ER for c/o increase generalized weakness, Multiple Falls at Home, Neuropathy over entire body the past 1 month and mild Lt flank pain. Per ER MD patient stable for DC Home from ER. SW Consult done in ER-refer to note. This curriculum writer s/w patient and agrees to PT and Aide to assist with Bathing. Insurance [employer] [facility] P[facility] Home Health List viewed by patient, and states no preference- Agrees to [facility]. C Order placed. VM to Adriana at [facility] left, return call from Adriana and confirmed received order-all questions answered and states HH cannot see patient until Saturday or Saturday, aware to assume that is ok with patient and if not this CM will call her back to let her know. This curriculum writer s/w patient and made aware HHC could not come until Saturday or Saturday-patient states that was fine and [facility] pamphlet provided to patient. Updated ER Dr Noriega. Irina Nava, RNCM
[2018-08-20 16:13] LABS: Bacteria 0 SEEN /hpf (None Seen); Mucous, Urine 0 SEEN /hpf (<or=2+); Red Blood Cells-Urine 0 SEEN /hpf (0-5); Squamous Epithelial Cells - UA 0 SEEN /hpf (0-5)
[2018-08-20 16:17] VITALS: BP 137/87; PULSE 56; RESP 16; O2SAT 96
[2018-08-20 16:40] LABS: Color, Urine Yellow (Yellow); Glucose, Dipstick Normal (Normal); Ketone-Dipstick Negative (Negative); Leukocyte Esterase-Dipstick 25 /ul (Negative); Nitrite-Dipstick Negative (Negative); Occult Blood-Urine Negative /ul (Negative); Protein-Dipstick Negative (Negative); Urine Bilirubin Dipstick Negative (Negative); Urine Clarity Clear (Clear); Urine Urobilinogen Normal (Normal); Urine pH 6.5 (5.0 - 8.0)
[2018-08-20 17:06] LABS: White Blood Cells 0-5 SEEN /hpf (0-5)
== END 2018-08-20 17:11 | disposition home or self-care (01) ==
PROVIDERS: Emergency Provider Emergency Medicine; Family Provider Internal Medicine; PCP Internal Medicine
DX: R53.1 Weakness (principal); R20.2 Paresthesia of skin; G20 Parkinson's disease; I10 Essential (primary) hypertension; J44.9 Chronic obstructive pulmonary disease, unspecified; K21.9 Gastro-esophageal reflux disease without esophagitis; D68.51 Activated protein C resistance; G62.9 Polyneuropathy, unspecified; F31.9 Bipolar disorder, unspecified; Z79.899 Other long term (current) drug therapy; Z72.0 Tobacco use
CPT/HCPCS: 70450; 80048; 80076; 81001; 84443; 85025; 93005; 96374; 99284; J7030

== ENCOUNTER 2018-08-22 20:20 | Observation (INO) | payer MEDICARE, SELFPAY ==
[2018-08-22 20:22] VITALS: BP 138/115; PULSE 71; RESP 18; TEMP 36.8; O2SAT 97; BMI 22.1
[2018-08-22] MEDS: Morphine 4 MG/ML Syringe IV ×2 (21:16→23:05)
[2018-08-22] MEDS: Ondansetron 4 MG/2 ML Vial IV (21:16)
[2018-08-22] MEDS: 0.9% Normal Saline 1,000 ML 150 ML IV (21:16)
[2018-08-22 21:42] LABS: Absolute Lymphocyte Count 2.63 X10^3/ul (0.83-4.51); Absolute Neutrophil Count 6.8 X10^3/uL (2.0-7.7); Basophil# 0.12 X10^3/uL; Basophil% 1.1 % (0-1); Eosinophil# 0.48 X10^3/uL; Eosinophils% 4.5 % (0-5); Hematocrit 44.3 % (40-54); Hemoglobin 14.9 g/dl (13.0-16.5); Lymphocyte # 2.63 X10^3/ul (4.0); Lymphocyte % 24.5 % (19-41); Mean Corp Hgb Conc 33.6 g/gl (32-36); Mean Corpuscular Hgb 30.4 pg (27.0-32.0); Mean Corpuscular Volume 90.4 fL (80-94); Monocyte# 0.71 X10^3/uL; Monocyte% 6.6 % (0-10); Neutrophil # 6.78 X10^3/uL (2.7-7.7); Neutrophil % 63.1 % (47-70); Platelet Count 253 K/mm3 (150-450); RBC Distribution Width CV 13.3 % (11.6-14.6); RBC Distribution Width SD 44.1 fl (35.1-43.9); White Blood Count 10.7 K/mm3 (4.4-11.0)
--- NOTE | 2018-08-22 21:42 | RAD_ITS ---
STUDY: X-RAY - PELVIS AND BILATERAL HIPS REASON FOR EXAM: Male, 68 years old. Fall tonight, bilateral hip pain TECHNIQUE: AP view of the pelvis.? 2 views of the right hip, and 2 views of the left hip were obtained. COMPARISON: None. FINDINGS: There is a non-specific bowel gas pattern. There are atherosclerotic vascular calcifications of the pelvic arteries. Surgical clips project over the upper scrotum. Normal bilateral iliac wings, sacroiliac joints and visualized sacrum. Normal bilateral superior and inferior pubic rami. Normal pubic symphysis. Normal bilateral ischial tuberosities. There are osteoarthritic changes of the right femoral head with marginal osteophyte formation. There is osteoarthritic spur formation of the right acetabular rim. There is moderate articular joint space narrowing of the right hip. There are osteoarthritic changes of the left femoral head with marginal osteophyte formation. There is osteoarthritic spur formation of the left acetabular rim. There is moderate articular joint space narrowing of the left hip. RAD/Hips B/L min 2 views w/ Pelvis IMPRESSION: No fracture or malalignment. Bilateral hip osteoarthrosis. Electronically Signed: Chalino Eng MD at 22:09 EDT , Service support ,
[2018-08-22 21:43] LABS: POSITIVE COUNT NO; POSITIVE DIFFERENTIAL NO; POSITIVE MORPHOLOGY NO
[2018-08-22 21:55] LABS: Anion Gap 5 (5-15); BUN 10 mg/dL (7-18); BUN/Creat Ratio 10.1 RATIO (10-20); Calcium,Total 8.5 mg/dL (8.5-10.1); Chloride 107 mmol/L (98-107); Creatinine, Serum 0.99 mg/dL (0.70-1.30); EST Glomerular Filtration Rate 80 mL/min (>60); Est Glom Filt Rate - Afr Amer 97 mL/min (>60); Estimated Creatinine Clearance 75.68 ml/min; Glucose 87 mg/dL (74-106); Potassium 3.8 mmol/L (3.5-5.1); Sodium Level 140 mmol/L (136-145)
--- NOTE | 2018-08-22 22:40 | ED.VISSUMM ---
- ER Visit Summary Date of Service: 08/22/18 Chief Complaint: Fall History of Present Illness: The patient is a 68 M who was seen 2 days ago for numbness all over his body for the past 2 months. Patient states his extremities feel weak. At that time he had a negative work-up. He refused hospital admission and home health was arranged. Today patient states he was cleaning his litter box. His legs gave out after he stood back up and he fell injuring both hips. He was brought in by EMS. Past history significant for Parkinson's, bipolar disorder, prostate and throat cancer in remission, depression, factor V Leiden. He also has COPD. Physical Examination: Vital signs remarkable for blood pressure 138/115, otherwise unremarkable. Patient sitting upright in bed no acute distress. Head and neck examination reveals no external sign of trauma. Heart is regular rate and rhythm. Lung sounds are clear pedal and abdomen is soft and nontender. Extremity examination was tenderness of the bilateral hips. Equal leg lengths noted. Pain is worse with internal and external rotation. Palpable distal pulses are noted. Neuro exam reveals decreased sensation to light touch throughout. Test Results: CBC and chemistry studies unremarkable. Patient had a head CT 2 days ago that was unremarkable. Pelvis and bilateral hip x-rays revealed no fracture. Bilateral hip arthrosis is noted. Emergency Department Course and Treatment: Patient was given morphine and Zofran for pain. On repeat evaluation I again expressed concerns about his safety at home. Patient initially refused hospital admission. When nursing staff attempted to ambulate him he did very poorly and was not steady on his feet. At this time he has agreed to hospitalization for further evaluation. Treatment Plan: [] Disposition: Admit Impression: 1. Reported numbness 2. Fall with bilateral hip contusions 3. Difficulty ambulating This note was generated with [employer] dictation software. It may contain incorrect words, spelling, and punctuation that were not noted in review of the chart prior to signing ED Disposition - Plan for ED Patient: Referrals: Ale Pepe MD [Primary Care Provider] -
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
[2018-08-22 23:08] VITALS: BP 119/95; PULSE 83; RESP 16; TEMP 36.8; O2SAT 94
[2018-08-22 23:10] VITALS: RESP 18
[2018-08-22 23:42] VITALS: BMI 21.6
[2018-08-23] VITALS (8 sets, daily range): BP systolic 99–130; BP diastolic 59–72; PULSE 67–77; RESP 18; TEMP 36.5–37; O2SAT 93–97
[2018-08-23] MEDS: CARBIDOPA/LEVODOPA CR 50/200 Tablet PO ×4 (00:45→22:14)
[2018-08-23] MEDS: Memantine Hydrochloride 10 MG Tablet PO ×3 (00:45→22:14)
[2018-08-23] MEDS: Pantoprazole Sodium 40 MG Tablet PO ×2 (00:46→09:56)
[2018-08-23] MEDS: Morphine 2 MG/ML Syringe IV (00:46)
[2018-08-23] MEDS: traZODone 100 MG Tablet PO (01:00)
[2018-08-23 01:28] LABS: CPK Total, Creatine Kinase 75 U/L (39-308); Magnesium 2.3 mg/dL (1.6-2.6)
[2018-08-23] MEDS: Venlafaxine XR 150 MG Capsule PO ×2 (02:09→22:14)
[2018-08-23] MEDS: lamoTRIgine 150 MG Tablet PO ×2 (02:10→22:15)
[2018-08-23] MEDS: HYDROcodone Bitartrate/Apap 5/325 Tablet PO ×2 (02:13→11:10)
[2018-08-23] MEDS: Ketorolac 15 MG/ML Vial IV ×3 (06:31→22:13)
[2018-08-23] MEDS: 0.9% Normal Saline 1,000 ML 100 ML IV (06:38)
[2018-08-23 06:50] LABS: Absolute Lymphocyte Count 2.15 X10^3/ul (0.83-4.51); Absolute Neutrophil Count 5.5 X10^3/uL (2.0-7.7); Basophil# 0.09 X10^3/uL; Eosinophil# 0.34 X10^3/uL; Eosinophils% 3.9 % (0-5); Hematocrit 42.6 % (40-54); Hemoglobin 13.8 g/dl (13.0-16.5); Lymphocyte # 2.15 X10^3/ul (4.0); Lymphocyte % 24.6 % (19-41); Mean Corp Hgb Conc 32.4 g/gl (32-36); Mean Corpuscular Hgb 29.9 pg (27.0-32.0); Mean Corpuscular Volume 92.4 fL (80-94); Mean Platelet Vol. 8.9 fl (6.2-12.0); Monocyte# 0.64 X10^3/uL; Monocyte% 7.3 % (0-10); Neutrophil # 5.51 X10^3/uL (2.7-7.7); Platelet Count 240 K/mm3 (150-450); RBC Distribution Width CV 13.7 % (11.6-14.6); Red Blood Count 4.61 M/mm3 (4.6-6.2); White Blood Count 8.8 K/mm3 (4.4-11.0)
[2018-08-23 07:05] LABS: Anion Gap 3 (5-15); BUN 12 mg/dL (7-18); BUN/Creat Ratio 10.2 RATIO (10-20); Calcium,Total 8.3 mg/dL (8.5-10.1); Chloride 108 mmol/L (98-107); Creatinine, Serum 1.18 mg/dL (0.70-1.30); EST Glomerular Filtration Rate 65 mL/min (>60); Est Glom Filt Rate - Afr Amer 79 mL/min (>60); Estimated Creatinine Clearance 62.04 ml/min; Glucose 113 mg/dL (74-106); Potassium 3.9 mmol/L (3.5-5.1); Sodium Level 142 mmol/L (136-145)
[2018-08-23] MEDS: Ipratropium/Albuterol Sulfate 3 ML AMPUL.NEB INHALATION (07:24)
[2018-08-23] MEDS: Gabapentin 800 MG Tablet PO (07:50)
[2018-08-23 07:54] LABS: POSITIVE COUNT NO; POSITIVE DIFFERENTIAL NO; POSITIVE MORPHOLOGY NO
[2018-08-23] MEDS: Propranolol LA 60 MG Capsule 120 MG PO (09:56)
[2018-08-23] MEDS: Enoxaparin 40 MG/0.4 ML Syringe SC (09:56)
[2018-08-23] MEDS: Gabapentin 400 MG Capsule PO ×2 (11:45→16:39)
[2018-08-23] MEDS: Lisinopril 10 MG Tablet PO (14:01)
[2018-08-23] MEDS: 0.9% NaCl Peripheral Flush Adult/Peds IV (14:02)
--- NOTE | 2018-08-23 14:02 | PCM.PN.HOSP ---
Patient Problems: Active and Suspected Problems (Last Reviewed 06/10/18 @ 13:56 by Keshia Ledbetter) Intractable pain (Acute) Paresthesias (Acute) Subjective: Still with diffuse paresthesias, including his head. Vitals/I&O's: Vital Signs Temp Pulse Resp BP Pulse Ox 36.8 C 75 18 107/67 97 08/23/18 09:32 08/23/18 11:05 08/23/18 11:05 08/23/18 11:05 08/23/18 09:32 Oxygen Delivery Method Room Air Weight: 72.2 kg Body Mass Index (BMI) 21.6 Intake and Output for Last 24 Hours 08/21/18 08/22/18 08/23/18 23:59 23:59 23:59 Intake Total 1680 / 1680 Output Total 900 / 900 Balance 780 / 780 General: Alert, No apparent distress, - - soft, but understandable voice. HEENT: Atraumatic, PERRLA, EOMI, Normocephalic, - - vertical nystagmus. delayed saccade with upward gaze. Oral: Moist Mucosa, No Gingival or Mucosal Lesions/ Ulcerations Neck: No Nodes, Thyroid Normal Size and Texture Lungs: Clear to auscultation, Normal air movement, No rhonchi, No wheeze Cardiovascular: Regular rate, Regular Rhythm, Normal S1, Normal S2, No murmurs Abdomen: Bowel Sounds Present, Soft, Non Tender, Non-Distended, No Hepato-splenomegaly Extremities: No edema, No Calf Tenderness Skin: No rashes, No breakdown Neurological: Deep Tendon Reflexes 2+/4 and Symmetrical, - - no clonus. downgoing babinski bilaterally. Psych/Mental Status: Normal Affect, Appropriate Laboratory Results 08/22/18 21:30: WBC 10.7, RBC 4.90, Hgb 14.9, Hct 44.3, MCV 90.4, MCH 30.4, MCHC 33.6, RDW 13.3, RDW Differential 44.1 H, Plt Count 253, MPV 9.0, Immature Gran % (Auto) 0.200, Neut % (Auto) 63.1, Lymph % (Auto) 24.5, [place] % (Auto) 6.6, Eos % (Auto) 4.5, Baso % (Auto) 1.1 H, Absolute Neuts (auto) 6.8, Absolute Lymphs (auto) 2.63, Total Counted Not Reportable 08/22/18 21:30: Sodium 140, Potassium 3.8, Chloride 107, Carbon Dioxide 28.0, Anion Gap 5, BUN 10, Creatinine 0.99, Estim Creat Clear Calc 75.68, Est GFR (MDRD) Af Amer 97, Est GFR (MDRD) Non-Af 80, BUN/Creatinine Ratio 10.1, Glucose 87, Calcium 8.5 08/22/18 21:30: Magnesium 2.3, Total Creatine Kinase 75, Folate 12.40 08/23/18 06:34: Vitamin B12 Pending 08/23/18 06:34: WBC 8.8, RBC 4.61, Hgb 13.8, Hct 42.6, MCV 92.4, MCH 29.9, MCHC 32.4, RDW 13.7, RDW Differential 46.0 H, Plt Count 240, MPV 8.9, Immature Gran % (Auto) 0.200, Neut % (Auto) 63.0, Lymph % (Auto) 24.6, [place] % (Auto) 7.3, Eos % (Auto) 3.9, Baso % (Auto) 1.0, Absolute Neuts (auto) 5.5, Absolute Lymphs (auto) 2.15, Total Counted Not Reportable 08/23/18 06:34: Sodium 142, Potassium 3.9, Chloride 108 H, Carbon Dioxide 31.0, Anion Gap 3 L, BUN 12, Creatinine 1.18, Estim Creat Clear Calc 62.04, Est GFR (MDRD) Af Amer 79, Est GFR (MDRD) Non-Af 65, BUN/Creatinine Ratio 10.2, Glucose 113 H, Calcium 8.3 L Current Medications Acetaminophen (Tylenol) 650 mg PO Q6H PRN PRN PRN Reason: Non-cardiac pain (mod-severe) Hydrocodone Bitart/Acetaminophen ([place] 5mg-325mg) 1 - 2 tablet PO Q6H PRN PRN PRN Reason: MOD-SEVERE PAIN (4-10/10) Last Admin: 08/23/18 11:10 Dose: 2 tablet Al Hydroxide/Mg Hydroxide (Mylanta Ii) 15 - 30 ml PO Q4H PRN PRN PRN Reason: INDIGESTION Albuterol Sulfate (Ventolin Aerosols) 2.5 mg INHALATION Q2H PRN PRN PRN Reason: dyspnea, wheezing Carbidopa/Levodopa (Sinemet Cr) 0.5 tablet PO TID [facility] Last Admin: 08/23/18 06:32 Dose: 0.5 tablet Dextrose (D50w Syringe) 0 gm IV X1 PRN; Protocol PRN Reason: Hypoglycemia Enoxaparin Sodium (Lovenox) 40 mg SC DAILY@1000 [facility] Last Admin: 08/23/18 09:56 Dose: 40 mg Gabapentin (Neurontin) 400 mg PO TIDCM [facility] Last Admin: 08/23/18 11:45 Dose: 400 mg Glucagon () 1 mg IM .X1 PRN PRN Reason: Hypoglycemia Hydralazine HCl (Apresoline Iv) 10 mg IV Q4H PRN PRN PRN Reason: SBP > 160 Hydrochlorothiazide () 12.5 mg PO DAILY [facility] Last Admin: 08/23/18 09:33 Dose: Not Given Sodium Chloride () 1,000 mls @ 100 mls/hr IV .Q10H [facility] Stop: 08/23/18 16:36 Last Admin: 08/23/18 06:38 Dose: 100 mls/hr Ketorolac Tromethamine (Toradol) 15 mg IV Q8 [facility] Stop: 08/24/18 14:01 Last Admin: 08/23/18 06:31 Dose: 15 mg Lamotrigine (Lamictal) 150 mg PO QHS [facility] Last Admin: 08/23/18 02:10 Dose: 150 mg Lisinopril (Zestril) 10 mg PO DAILY [facility] Memantine (Namenda) 10 mg PO BID [facility] Last Admin: 08/23/18 09:57 Dose: 10 mg Morphine Sulfate () 2 - 4 mg IV Q4H PRN PRN PRN Reason: PAIN Last Admin: 08/23/18 00:46 Dose: 4 mg Ondansetron HCl (Zofran) 4 mg IV Q8H PRN PRN PRN Reason: NAUSEA/VOMITING Pantoprazole Sodium (Protonix) 40 mg PO DAILY [facility] Last Admin: 08/23/18 09:56 Dose: 40 mg Promethazine HCl (Phenergan) 6.25 mg IV Q6H PRN PRN PRN Reason: NAUSEA/VOMITING Propranolol HCl (Inderal La) 120 mg PO DAILY [facility] Last Admin: 08/23/18 09:56 Dose: 120 mg Sodium Chloride () 5 - 15 ml IV UD PRN PRN Reason: SALINE FLUSH Trazodone HCl (Desyrel) 100 - 200 mg PO QHS PRN PRN PRN Reason: SLEEP Last Admin: 08/23/18 01:00 Dose: 200 mg Venlafaxine HCl (Effexor Xr) 150 mg PO QHS [facility] Last Admin: 08/23/18 02:09 Dose: 150 mg Medical Necessity - Tobacco Use Smoking Status: Current every day smoker Tobacco Use: Cigarettes Assessment/Plan All Active Problems (Last Reviewed 06/10/18 @ 13:56 by Keshia Ledbetter) Intractable pain (Acute) Paresthesias (Acute) Hypersomnia (Acute) Abnormal CT lung screening (Acute) SBO (small bowel obstruction) (Acute) 1. paresthesias no obvious neurologic etiology. neuro exam unremarkable no electrolyte abnormalities discussed with patient, that this could be iatrogenic, and recommended decreasing gabapentin from 800 tid to 400 tid. May consider decreasing further if still having symptoms. 2. Parkinson's disease: has seen a physician at , but now following with Dr. Pedroza continue Sinemet follow up with neurology as outpt. 3. Debility at least partially related to progression of parkinson's disease [facility] v [facility], patient seemed more inclined to the former 4. VTE prophylaxis: LMWH Code Visit OBSV E&M: 42686 Subsequent observation care L3
--- NOTE | 2018-08-23 14:12 | PN_ITS ---
Patient Problems: Active and Suspected Problems (Last Reviewed 06/10/18 @ 13:56 by Keshia Ledbetter) Intractable pain (Acute) Paresthesias (Acute) Subjective: Still with diffuse paresthesias, including his head. Vitals/I&O's: Vital Signs Temp Pulse Resp BP Pulse Ox 36.8 C 75 18 107/67 97 08/23/18 09:32 08/23/18 11:05 08/23/18 11:05 08/23/18 11:05 08/23/18 09:32 Oxygen Delivery Method Room Air Weight: 72.2 kg Body Mass Index (BMI) 21.6 Intake and Output for Last 24 Hours 08/21/18 08/22/18 08/23/18 23:59 23:59 23:59 Intake Total 1680 / 1680 Output Total 900 / 900 Balance 780 / 780 General: Alert, No apparent distress, - - soft, but understandable voice. HEENT: Atraumatic, PERRLA, EOMI, Normocephalic, - - vertical nystagmus. delayed saccade with upward gaze. Oral: Moist Mucosa, No Gingival or Mucosal Lesions/ Ulcerations Neck: No Nodes, Thyroid Normal Size and Texture Lungs: Clear to auscultation, Normal air movement, No rhonchi, No wheeze Cardiovascular: Regular rate, Regular Rhythm, Normal S1, Normal S2, No murmurs Abdomen: Bowel Sounds Present, Soft, Non Tender, Non-Distended, No Hepato- splenomegaly Extremities: No edema, No Calf Tenderness Skin: No rashes, No breakdown Neurological: Deep Tendon Reflexes 2+/4 and Symmetrical, - - no clonus. downgoing babinski bilaterally. Psych/Mental Status: Normal Affect, Appropriate Laboratory Results 08/22/18 21:30: WBC 10.7, RBC 4.90, Hgb 14.9, Hct 44.3, MCV 90.4, MCH 30.4, MCHC 33.6, RDW 13.3, RDW Differential 44.1 H, Plt Count 253, MPV 9.0, Immature Gran % (Auto) 0.200, Neut % (Auto) 63.1, Lymph % (Auto) 24.5, [place] % (Auto) 6.6, Eos % (Auto) 4.5, Baso % (Auto) 1.1 H, Absolute Neuts (auto) 6.8, Absolute Lymphs (auto) 2.63, Total Counted Not Reportable 08/22/18 21:30: Sodium 140, Potassium 3.8, Chloride 107, Carbon Dioxide 28.0, Anion Gap 5, BUN 10, Creatinine 0.99, Estim Creat Clear Calc 75.68, Est GFR (MDRD) Af Amer 97, Est GFR (MDRD) Non-Af 80, BUN/Creatinine Ratio 10.1, Glucose 87, Calcium 8.5 08/22/18 21:30: Magnesium 2.3, Total Creatine Kinase 75, Folate 12.40 08/23/18 06:34: Vitamin B12 Pending 08/23/18 06:34: WBC 8.8, RBC 4.61, Hgb 13.8, Hct 42.6, MCV 92.4, MCH 29.9, MCHC 32.4, RDW 13.7, RDW Differential 46.0 H, Plt Count 240, MPV 8.9, Immature Gran % (Auto) 0.200, Neut % (Auto) 63.0, Lymph % (Auto) 24.6, [place] % (Auto) 7.3, Eos % (Auto) 3.9, Baso % (Auto) 1.0, Absolute Neuts (auto) 5.5, Absolute Lymphs (auto) 2.15, Total Counted Not Reportable 08/23/18 06:34: Sodium 142, Potassium 3.9, Chloride 108 H, Carbon Dioxide 31.0, Anion Gap 3 L, BUN 12, Creatinine 1.18, Estim Creat Clear Calc 62.04, Est GFR (MDRD) Af Amer 79, Est GFR (MDRD) Non-Af 65, BUN/Creatinine Ratio 10.2, Glucose 113 H, Calcium 8.3 L Current Medications Acetaminophen (Tylenol) 650 mg PO Q6H PRN PRN PRN Reason: Non-cardiac pain (mod-severe) Hydrocodone Bitart/Acetaminophen ([place] 5mg-325mg) 1 - 2 tablet PO Q6H PRN PRN PRN Reason: MOD-SEVERE PAIN (4-10/10) Last Admin: 08/23/18 11:10 Dose: 2 tablet Al Hydroxide/Mg Hydroxide (Mylanta Ii) 15 - 30 ml PO Q4H PRN PRN PRN Reason: INDIGESTION Albuterol Sulfate (Ventolin Aerosols) 2.5 mg INHALATION Q2H PRN PRN PRN Reason: dyspnea, wheezing Carbidopa/Levodopa (Sinemet Cr) 0.5 tablet PO TID [facility] Last Admin: 08/23/18 06:32 Dose: 0.5 tablet Dextrose (D50w Syringe) 0 gm IV X1 PRN; Protocol PRN Reason: Hypoglycemia Enoxaparin Sodium (Lovenox) 40 mg SC DAILY@1000 [facility] Last Admin: 08/23/18 09:56 Dose: 40 mg Gabapentin (Neurontin) 400 mg PO TIDCM [facility] Last Admin: 08/23/18 11:45 Dose: 400 mg Glucagon () 1 mg IM .X1 PRN PRN Reason: Hypoglycemia Hydralazine HCl (Apresoline Iv) 10 mg IV Q4H PRN PRN PRN Reason: SBP > 160 Hydrochlorothiazide () 12.5 mg PO DAILY [facility] Last Admin: 08/23/18 09:33 Dose: Not Given Sodium Chloride () 1,000 mls @ 100 mls/hr IV .Q10H [facility] Stop: 08/23/18 16:36 Last Admin: 08/23/18 06:38 Dose: 100 mls/hr Ketorolac Tromethamine (Toradol) 15 mg IV Q8 [facility] Stop: 08/24/18 14:01 Last Admin: 08/23/18 06:31 Dose: 15 mg Lamotrigine (Lamictal) 150 mg PO QHS [facility] Last Admin: 08/23/18 02:10 Dose: 150 mg Lisinopril (Zestril) 10 mg PO DAILY [facility] Memantine (Namenda) 10 mg PO BID [facility] Last Admin: 08/23/18 09:57 Dose: 10 mg Morphine Sulfate () 2 - 4 mg IV Q4H PRN PRN PRN Reason: PAIN Last Admin: 08/23/18 00:46 Dose: 4 mg Ondansetron HCl (Zofran) 4 mg IV Q8H PRN PRN PRN Reason: NAUSEA/VOMITING Pantoprazole Sodium (Protonix) 40 mg PO DAILY [facility] Last Admin: 08/23/18 09:56 Dose: 40 mg Promethazine HCl (Phenergan) 6.25 mg IV Q6H PRN PRN PRN Reason: NAUSEA/VOMITING Propranolol HCl (Inderal La) 120 mg PO DAILY [facility] Last Admin: 08/23/18 09:56 Dose: 120 mg Sodium Chloride () 5 - 15 ml IV UD PRN PRN Reason: SALINE FLUSH Trazodone HCl (Desyrel) 100 - 200 mg PO QHS PRN PRN PRN Reason: SLEEP Last Admin: 08/23/18 01:00 Dose: 200 mg Venlafaxine HCl (Effexor Xr) 150 mg PO QHS [facility] Last Admin: 08/23/18 02:09 Dose: 150 mg Medical Necessity - Tobacco Use Smoking Status: Current every day smoker Tobacco Use: Cigarettes Assessment/Plan All Active Problems (Last Reviewed 06/10/18 @ 13:56 by Keshia Ledbetter) Intractable pain (Acute) Paresthesias (Acute) Hypersomnia (Acute) Abnormal CT lung screening (Acute) SBO (small bowel obstruction) (Acute) 1. paresthesias * no obvious neurologic etiology. neuro exam unremarkable * no electrolyte abnormalities * discussed with patient, that this could be iatrogenic, and recommended decreasing gabapentin from 800 tid to 400 tid. May consider decreasing further if still having symptoms. 2. Parkinson's disease: * has seen a physician at , but now following with Dr. Pedroza * continue Sinemet * follow up with neurology as outpt. 3. Debility * at least partially related to progression of parkinson's disease * [facility] v [facility], patient seemed more inclined to the former 4. VTE prophylaxis: LMWH Code Visit OBSV E&M: 79664 Subsequent observation care L3
--- NOTE | 2018-08-23 14:52 | CASEMGMT ---
LW in [facility], SW printed and placed on chart. SW spoke w/pt about POA, he wanted to complete the form now. SW assisted pt in completing POA form, gave pt original and copies, and copy placed on chart. EJ Ortega
--- NOTE | 2018-08-23 16:20 | CM.UR ---
RN CM Assessment Met face to face with patient for initial transition planning/care coordination assessment. Introduced myself and my role. Verb understanding and agreement for assessment. Presentation: Fall. Has gradually weakened over last month and states increased numbness. PCP: Dr. Pepe Specialists: Dr. Cerrato and was seeing Dr. Pedroza for neuro but hasn't seen in over a year. Seen at counseling center. Preferred Pharmacy: [facility] Insurance: [employer] Prescription Benefit: yes LNOK: DaughterTabby Home: Lives alone in a story apartment. 3 steps to enter. Some support from neighbor and daughter. ADLs: states does them all but with difficulty. States he shouldn?t be driving any more. Laundry is in basement. Transportation: Will need assistance if stops driving. DME: Has a cane and a walker. SNF/HHC: None. Referred to [facility]HC on 08/20 however they haven?t come yet. They were scheduled to come out beginning of next week. Passport/waiver restaurant mgr: None Advance Directives: SW assisted. DC PLAN: Wants to go home. Will NOT go to SNF. Will need f/u with neurologist. Bisi Vega RN, CCM.
[2018-08-23] MEDS: Albuterol 2.5 MG/3 ML VIAL.NEB. INHALATION (19:54)
[2018-08-24 02:22] VITALS: BP 136/73; PULSE 57; RESP 18; TEMP 36.9; O2SAT 92
[2018-08-24] MEDS: HYDROcodone Bitartrate/Apap 5/325 Tablet PO (02:32)
[2018-08-24] MEDS: CARBIDOPA/LEVODOPA CR 50/200 Tablet PO (05:45)
[2018-08-24] MEDS: Ketorolac 15 MG/ML Vial IV (05:45)
[2018-08-24] MEDS: 0.9% NaCl Peripheral Flush Adult/Peds IV (05:48)
[2018-08-24 08:12] VITALS: BP 152/68; PULSE 64; RESP 18; TEMP 37; O2SAT 94
[2018-08-24] MEDS: hydroCHLOROthiazide 12.5mg 12.5 MG PO (08:17)
[2018-08-24] MEDS: Memantine Hydrochloride 10 MG Tablet PO (08:17)
[2018-08-24] MEDS: Enoxaparin 40 MG/0.4 ML Syringe SC (08:18)
[2018-08-24] MEDS: Lisinopril 10 MG Tablet PO (08:18)
[2018-08-24] MEDS: Gabapentin 400 MG Capsule PO (08:19)
[2018-08-24] MEDS: Propranolol LA 60 MG Capsule 120 MG PO (08:19)
[2018-08-24] MEDS: Pantoprazole Sodium 40 MG Tablet PO (08:20)
--- NOTE | 2018-08-24 09:29 | DCINST_ITS ---
- Discharge Diagnoses Current Active Problems: Current Active and Chronic Problems (Last Reviewed 06/10/18 @ 13:56 by Keshia Ledbetter) Intractable pain (Acute) Paresthesias (Acute) You will use the following diet at home:: Regular Your food should be the consistency of: Regular Discharge Activity: Return to Normal Activity Call your doctor if you observe: Fever of 101 or Higher, - - falls. increased weakness. Additional Instructions: Self-catheterize with clean, new catheter 4 times daily as needed. Allergies/Adverse Reactions: Allergies codeine Allergy (Verified 08/22/18 20:22) Swelling of face and fingers ketorolac tromethamine [From Toradol] Adverse Reaction (Verified 08/22/18 20:22) Nausea oxycodone HCl [From Percocet] Adverse Reaction (Verified 08/22/18 20:22) Upset Stomach sucralfate [From Carafate] Adverse Reaction (Verified 08/22/18 20:22) Nausea tramadol HCl [From Ultram] Adverse Reaction (Verified 08/22/18 20:22) Nausea Medications to take at Discharge traZODone [Desyrel] 100 - 200 mg PO QHS PRN 02/10/13 Venlafaxine XR [Effexor Xr] 150 mg PO QHS 01/11/17 albuterol sulfate HFA 90 mcg/actuation aerosol inhaler 1 puff INHALATION Q6H PRN #1 inh 06/12/17 carbidopa ER 25 mg-levodopa 100 mg tablet,extended release 1 tab PO TID tab 06/12/17 memantine 10 mg tablet 10 mg PO BID 06/12/17 propranolol XL 120 mg capsule,extended release 24 hr 120 mg PO DAILY 06/12/17 lisinopril 10 mg tablet 10 mg PO DAILY #90 tab 06/09/18 budesonide 0.5 mg/2 mL suspension for nebulization 2 ml INHALATION BID PRN PRN 06/10/18 Hydrochlorothiazide 12.5 mg PO DAILY 08/20/18 Lamotrigine [Lamictal] 150 mg PO QHS 08/20/18 esomeprazole magnesium 40 mg capsule,delayed release 40 mg PO DAILY #90 cap 08/21/18 Acetaminophen [Tylenol Tablet] 500 mg PO Q4H PRN tablet 08/24/18 Catheter [Self-Cath] 1 ea MC Q6H PRN #120 ea 08/24/18 Gabapentin 400 mg PO TID #4320 ml 08/24/18 Tamsulosin HCl [Flomax] 0.4 mg PO DAILY #30 capsule 08/24/18 The following prescriptions were given: Tamsulosin HCl [Flomax] 0.4 mg PO DAILY #30 capsule Catheter [Self-Cath] 1 ea MC Q6H PRN #120 ea PRN Reason: urinary retention Primary Care Physician: Ale Pepe MD [Primary Care Provider] - Within 2 Weeks Test Results: Test results from this visit will be discussed in further detail at your follow- up appointment, if applicable. Please Follow Up With: Tan Doherty MD - Urology When: 2-4 weeks Please Follow Up With: Ceferino Pedroza MD When: next scheduled appointment Proposed Discharge Date: 08/24/18
--- NOTE | 2018-08-24 09:29 | PCM.DC.SUM ---
Discharge Date and Diagnosis - Problem List Patient Problems: Active and Suspected Problems (Last Reviewed 06/10/18 @ 13:56 by Keshia Ledbetter) Urinary retention (Acute) Intractable pain (Acute) Paresthesias (Acute) Date of Admission: 08/22/18 Date of Discharge: 08/24/18 - Primary Discharge Diagnosis Active and Suspected Problems (Last Reviewed 06/10/18 @ 13:56 by Keshia Ledbetter) Urinary retention (Acute) Intractable pain (Acute) Paresthesias (Acute) 1. paresthesias Improved but still ongoing no obvious neurologic etiology. neuro exam unremarkable no electrolyte abnormalities discussed with patient, that this could be iatrogenic, and recommended decreasing gabapentin from 800 tid to 400 tid. Made recommendation to continue to taper it off over the next few weeks. Patient still has symptoms may consider addressing some of his other medications. 2. Urinary retention Patient has had urinary retention for years. Has had a history of prostate cancer but did not have a prostatectomy. Did have radiation for it. Patient states that when he is been hospitalized before he has had issues in regards to urinary retention and requiring self catheterizations. He is never been discharged home with self catheters but is open to performing it himself. Unclear the patient has BPH given his history but will start patient on empiric Flomax and the patient will be given a prescription for self catheters to be used as needed. Patient recommend follow-up with urology as outpatient 4. Parkinson's disease: has seen a physician at , but now following with Dr. Pedroza continue Sinemet follow up with neurology as outpt. 4. Debility at least partially related to progression of parkinson's disease now preferring to go home with home care rather than custodial facility. - Secondary Discharge Diagnosis Chronic Problems (Last Reviewed 06/10/18 @ 13:56 by Keshia Ledbetter) Bronchiectasis (Chronic) Factor 5 Leiden mutation, heterozygous (Chronic) Numbness (Chronic) Urinary frequency (Chronic) Bipolar 1 disorder (Chronic) Penetrating abdominal trauma (Chronic) Parkinson disease (Chronic) HTN (hypertension) (Chronic) GERD (gastroesophageal reflux disease) (Chronic) Depression (Chronic) Prostate cancer (Chronic) History of throat cancer (Chronic) Tobacco use (Chronic) COPD (chronic obstructive pulmonary disease) (Chronic) Left sided abdominal pain (Chronic) Hospital Course and Treatment Imaging Results: Clinical Impression(s) from Imaging Studies Hip/Pelvis X-Ray 08/22/18 21:42 IMPRESSION: No fracture or malalignment. Bilateral hip osteoarthrosis. Electronically Signed: Chalino Eng MD at 22:09 EDT , Service support , Operations: None Procedures: None Summary of Care Provided: The patient is a 68 year old M resents with fall and hip pain. Patient was seen in the emergency room and had x-rays that were negative for hip fractures. Patient complained of diffuse paresthesias including his face and scalp. Did not feel anything acutely neurologic and metabolic etiologies were negative based on his electrolytes. Discussed with the patient that this could be related with medications in particular gabapentin. I discussed with him about cutting back on that and see how that improves his symptoms. Yesterday, we decreased his gabapentin from 800-403 times daily. States that he felt somewhat better today but still has the paresthesias. I feel that his strength overall is better. Initially he did want to go to a custodial facility but now stated that he preferred to go home with home care. I made a recommendation to decrease his gabapentin further to off over the next few weeks. Patient did have urinary retention. Was not his initial complaint when he arrived but has had this problem before when he is been hospitalized. His MRV goes home, he does not have that issue. I talked to the patient about him self catheterizing himself as needed and he was open to performing it himself. The patient will be on have self-catheterization as needed 4 times a day and patient will be started on Flomax as well. [] Patient Problems: Active and Suspected Problems (Last Reviewed 06/10/18 @ 13:56 by Keshia Ledbetter) Urinary retention (Acute) Intractable pain (Acute) Paresthesias (Acute) - Physical Exam General: Alert, No apparent distress HEENT: Atraumatic, Normocephalic Oral: Moist Mucosa, No Gingival or Mucosal Lesions/ Ulcerations Psych/Mental Status: Normal Affect, Appropriate Vital Signs Temp Pulse Resp BP Pulse Ox 37.0 C 64 18 152/68 H 94 08/24/18 08:12 08/24/18 08:12 08/24/18 08:12 08/24/18 08:12 08/24/18 08:12 Oxygen Delivery Method Room Air Weight: 72.2 kg Body Mass Index (BMI) 21.6 Intake and Output for Last 24 Hours 08/22/18 08/23/18 08/24/18 23:59 23:59 23:59 Intake Total 2448 / 2448 200 / 200 Output Total 1100 / 1100 1300 / 1300 Balance 1348 / 1348 -1100 / -1100 Discharge Diet: No Restrictions Discharge Activity: Return to Normal Activity Call your doctor if you observe: Fever of 101 or Higher, - - falls. increased weakness. Home Medications: Medications to take at Discharge traZODone [Desyrel] 100 - 200 mg PO QHS PRN 02/10/13 Venlafaxine XR [Effexor Xr] 150 mg PO QHS 01/11/17 albuterol sulfate HFA 90 mcg/actuation aerosol inhaler 1 puff INHALATION Q6H PRN #1 inh 06/12/17 carbidopa ER 25 mg-levodopa 100 mg tablet,extended release 1 tab PO TID tab 06/12/17 memantine 10 mg tablet 10 mg PO BID 06/12/17 propranolol XL 120 mg capsule,extended release 24 hr 120 mg PO DAILY 06/12/17 lisinopril 10 mg tablet 10 mg PO DAILY #90 tab 06/09/18 budesonide 0.5 mg/2 mL suspension for nebulization 2 ml INHALATION BID PRN PRN 06/10/18 Hydrochlorothiazide 12.5 mg PO DAILY 08/20/18 Lamotrigine [Lamictal] 150 mg PO QHS 08/20/18 esomeprazole magnesium 40 mg capsule,delayed release 40 mg PO DAILY #90 cap 08/21/18 Acetaminophen [Tylenol Tablet] 500 mg PO Q4H PRN tablet 08/24/18 Catheter [Self-Cath] 1 ea MC Q6H PRN #120 ea 08/24/18 Gabapentin 400 mg PO TID #4320 ml 08/24/18 Tamsulosin HCl [Flomax] 0.4 mg PO DAILY #30 capsule 08/24/18 Following Prescrptions Were Given to Patient: Tamsulosin HCl [Flomax] 0.4 mg PO DAILY #30 capsule Catheter [Self-Cath] 1 ea MC Q6H PRN #120 ea PRN Reason: urinary retention Primary Care Physician: Ale Pepe MD [Primary Care Provider] - Within 2 Weeks Please Follow Up With: Tan Doherty MD - Urology When: 2-4 weeks Please Follow Up With: Ceferino Pedroza MD When: next scheduled appointment Disposition: Home with Home Health Minutes spent on discharge:: 35 Patient Condition:: Fair Medical Necessity - Tobacco Use Smoking Status: Current every day smoker Tobacco Use: Cigarettes Meaningful Use Info Meaningful Use Diagnoses (Choose all that apply): None applicable Code Visit OBSV E&M: 42482 Observation care discharge
--- NOTE | 2018-08-24 09:34 | DS.PCM_ITS ---
Discharge Date and Diagnosis - Problem List Patient Problems: Active and Suspected Problems (Last Reviewed 06/10/18 @ 13:56 by Keshia Ledbetter) Urinary retention (Acute) Intractable pain (Acute) Paresthesias (Acute) Date of Admission: 08/22/18 Date of Discharge: 08/24/18 - Primary Discharge Diagnosis Active and Suspected Problems (Last Reviewed 06/10/18 @ 13:56 by Keshia Ledbetter) Urinary retention (Acute) Intractable pain (Acute) Paresthesias (Acute) 1. paresthesias * Improved but still ongoing * no obvious neurologic etiology. neuro exam unremarkable * no electrolyte abnormalities * discussed with patient, that this could be iatrogenic, and recommended decreasing gabapentin from 800 tid to 400 tid. Made recommendation to continue to taper it off over the next few weeks. Patient still has symptoms may consider addressing some of his other medications. 2. Urinary retention * Patient has had urinary retention for years. Has had a history of prostate cancer but did not have a prostatectomy. Did have radiation for it. * Patient states that when he is been hospitalized before he has had issues in regards to urinary retention and requiring self catheterizations. He is never been discharged home with self catheters but is open to performing it himself. * Unclear the patient has BPH given his history but will start patient on empiric Flomax and the patient will be given a prescription for self catheters to be used as needed. * Patient recommend follow-up with urology as outpatient 4. Parkinson's disease: * has seen a physician at , but now following with Dr. Pedroza * continue Sinemet * follow up with neurology as outpt. 4. Debility * at least partially related to progression of parkinson's disease * now preferring to go home with home care rather than [facility] facility. - Secondary Discharge Diagnosis Chronic Problems (Last Reviewed 06/10/18 @ 13:56 by Keshia Ledbetter) Bronchiectasis (Chronic) Factor 5 Leiden mutation, heterozygous (Chronic) Numbness (Chronic) Urinary frequency (Chronic) Bipolar 1 disorder (Chronic) Penetrating abdominal trauma (Chronic) Parkinson disease (Chronic) HTN (hypertension) (Chronic) GERD (gastroesophageal reflux disease) (Chronic) Depression (Chronic) Prostate cancer (Chronic) History of throat cancer (Chronic) Tobacco use (Chronic) COPD (chronic obstructive pulmonary disease) (Chronic) Left sided abdominal pain (Chronic) Hospital Course and Treatment Imaging Results: Clinical Impression(s) from Imaging Studies Hip/Pelvis X-Ray 08/22/18 21:42 IMPRESSION: No fracture or malalignment. Bilateral hip osteoarthrosis. Electronically Signed: Chalino Eng MD at 22:09 EDT , Service support , Operations: None Procedures: None Summary of Care Provided: The patient is a 68 year old M resents with fall and hip pain. Patient was seen in the emergency room and had x-rays that were negative for hip fractures. Patient complained of diffuse paresthesias including his face and scalp. Did not feel anything acutely neurologic and metabolic etiologies were negative based on his electrolytes. Discussed with the patient that this could be related with medications in particular gabapentin. I discussed with him about cutting back on that and see how that improves his symptoms. Yesterday, we decreased his gabapentin from 800-403 times daily. States that he felt somewhat better today but still has the paresthesias. I feel that his strength overall is better. Initially he did want to go to a [facility] facility but now stated that he preferred to go home with home care. I made a recommendation to decrease his gabapentin further to off over the next few weeks. Patient did have urinary retention. Was not his initial complaint when he arrived but has had this problem before when he is been hospitalized. His MRV goes home, he does not have that issue. I talked to the patient about him self catheterizing himself as needed and he was open to performing it himself. The patient will be on have self-catheterization as needed 4 times a day and patient will be started on Flomax as well. [] Patient Problems: Active and Suspected Problems (Last Reviewed 06/10/18 @ 13:56 by Keshia Ledbetter) Urinary retention (Acute) Intractable pain (Acute) Paresthesias (Acute) - Physical Exam General: Alert, No apparent distress HEENT: Atraumatic, Normocephalic Oral: Moist Mucosa, No Gingival or Mucosal Lesions/ Ulcerations Psych/Mental Status: Normal Affect, Appropriate Vital Signs Temp Pulse Resp BP Pulse Ox 37.0 C 64 18 152/68 H 94 08/24/18 08:12 08/24/18 08:12 08/24/18 08:12 08/24/18 08:12 08/24/18 08:12 Oxygen Delivery Method Room Air Weight: 72.2 kg Body Mass Index (BMI) 21.6 Intake and Output for Last 24 Hours 08/22/18 08/23/18 08/24/18 23:59 23:59 23:59 Intake Total 2448 / 2448 200 / 200 Output Total 1100 / 1100 1300 / 1300 Balance 1348 / 1348 -1100 / -1100 Discharge Diet: No Restrictions Discharge Activity: Return to Normal Activity Call your doctor if you observe: Fever of 101 or Higher, - - falls. increased weakness. Home Medications: Medications to take at Discharge traZODone [Desyrel] 100 - 200 mg PO QHS PRN 02/10/13 Venlafaxine XR [Effexor Xr] 150 mg PO QHS 01/11/17 albuterol sulfate HFA 90 mcg/actuation aerosol inhaler 1 puff INHALATION Q6H PRN #1 inh 06/12/17 carbidopa ER 25 mg-levodopa 100 mg tablet,extended release 1 tab PO TID tab 06/12/17 memantine 10 mg tablet 10 mg PO BID 06/12/17 propranolol XL 120 mg capsule,extended release 24 hr 120 mg PO DAILY 06/12/17 lisinopril 10 mg tablet 10 mg PO DAILY #90 tab 06/09/18 budesonide 0.5 mg/2 mL suspension for nebulization 2 ml INHALATION BID PRN PRN 06/10/18 Hydrochlorothiazide 12.5 mg PO DAILY 08/20/18 Lamotrigine [Lamictal] 150 mg PO QHS 08/20/18 esomeprazole magnesium 40 mg capsule,delayed release 40 mg PO DAILY #90 cap 08/21/18 Acetaminophen [Tylenol Tablet] 500 mg PO Q4H PRN tablet 08/24/18 Catheter [Self-Cath] 1 ea MC Q6H PRN #120 ea 08/24/18 Gabapentin 400 mg PO TID #4320 ml 08/24/18 Tamsulosin HCl [Flomax] 0.4 mg PO DAILY #30 capsule 08/24/18 Following Prescrptions Were Given to Patient: Tamsulosin HCl [Flomax] 0.4 mg PO DAILY #30 capsule Catheter [Self-Cath] 1 ea MC Q6H PRN #120 ea PRN Reason: urinary retention Primary Care Physician: Ale Pepe MD [Primary Care Provider] - Within 2 Weeks Please Follow Up With: Tan Doherty MD - Urology When: 2-4 weeks Please Follow Up With: Ceferino Pedroza MD When: next scheduled appointment Disposition: Home with Home Health Minutes spent on discharge:: 35 Patient Condition:: Fair Medical Necessity - Tobacco Use Smoking Status: Current every day smoker Tobacco Use: Cigarettes Meaningful Use Info Meaningful Use Diagnoses (Choose all that apply): None applicable Code Visit OBSV E&M: 85248 Observation care discharge
[2018-08-25 10:17] LABS: Vitamin B12 241 pg/mL (211-911)
== END 2018-08-24 10:02 | disposition home health service (06) ==
LOC: ED 21:01 → MS3 23:09
PROVIDERS: Admitting Provider Family Medicine; Emergency Provider Emergency Medicine; Family Provider Internal Medicine; PCP Internal Medicine; Referring Provider Family Medicine
DX: S70.02XA Contusion of left hip, initial encounter (principal); S70.01XA Contusion of right hip, initial encounter; R33.9 Retention of urine, unspecified; R20.2 Paresthesia of skin; G20 Parkinson's disease; J44.9 Chronic obstructive pulmonary disease, unspecified; F31.9 Bipolar disorder, unspecified; D68.51 Activated protein C resistance; Z85.89 Personal history of malignant neoplasm of other organs and systems; W19.XXXA Unspecified fall, initial encounter; Y93.K9 Activity, other involving animal care; Y92.9 Unspecified place or not applicable; K21.9 Gastro-esophageal reflux disease without esophagitis; F41.9 Anxiety disorder, unspecified; Z85.46 Personal history of malignant neoplasm of prostate; F17.210 Nicotine dependence, cigarettes, uncomplicated
CPT/HCPCS: 36415; 73521; 80048; 82550; 82607; 82746; 83735; 85025; 94640; 96361; 96372; 96374; 96375; 96376; 97116; 97162; 97166; 99218; 99285; 99406; J7030; A4216; G0378; J2405

== ENCOUNTER 2018-10-04 18:00 | Emergency (ER) | payer MEDICARE, SELFPAY ==
[2018-09-05 10:56] VITALS: BMI 21.6
[2018-10-04 18:02] VITALS: BP 156/98; PULSE 76; RESP 15; TEMP 37.3; O2SAT 95; BMI 21.7
[2018-10-04 18:43] LABS: Absolute Neutrophil Count 5.3 X10^3/uL (2.0-7.7); Basophil# 0.05 X10^3/uL; Basophil% 0.6 % (0-1); Eosinophil# 0.23 X10^3/uL; Eosinophils% 2.8 % (0-5); Hematocrit 41.4 % (40-54); Hemoglobin 13.9 g/dl (13.0-16.5); Lymphocyte % 20.8 % (19-41); Mean Corp Hgb Conc 33.6 g/gl (32-36); Mean Corpuscular Hgb 30.6 pg (27.0-32.0); Mean Corpuscular Volume 91.2 fL (80-94); Mean Platelet Vol. 8.8 fl (6.2-12.0); Monocyte# 0.89 X10^3/uL; Monocyte% 10.9 % (0-10); Neutrophil # 5.28 X10^3/uL (2.7-7.7); Neutrophil % 64.7 % (47-70); Platelet Count 247 K/mm3 (150-450); RBC Distribution Width CV 13.4 % (11.6-14.6); RBC Distribution Width SD 44.5 fl (35.1-43.9); Red Blood Count 4.54 M/mm3 (4.6-6.2); White Blood Count 8.2 K/mm3 (4.4-11.0)
[2018-10-04 18:44] LABS: POSITIVE COUNT NO; POSITIVE DIFFERENTIAL NO; POSITIVE MORPHOLOGY NO
[2018-10-04 19:05] LABS: AST(SGOT) 13 U/L (15-37); Alanine Aminotransfer ALT/SGPT 15 U/L (16-61); Albumin, Serum 3.5 g/dL (3.2-5.0); Alkaline Phosphatase 114 U/L (45-117); Anion Gap 3 (5-15); BUN 11 mg/dL (7-18); BUN/Creat Ratio 9.6 RATIO (10-20); Calcium,Total 8.5 mg/dL (8.5-10.1); Chloride 109 mmol/L (98-107); Creatinine, Serum 1.15 mg/dL (0.70-1.30); EST Glomerular Filtration Rate 67 mL/min (>60); Est Glom Filt Rate - Afr Amer 82 mL/min (>60); Estimated Creatinine Clearance 64.18 ml/min; Globulin 3.6 g/dL (2.2-4.2); Glucose 86 mg/dL (74-106); Potassium 3.9 mmol/L (3.5-5.1); Protein, Total 7.1 g/dL (6.4-8.2); Sodium Level 139 mmol/L (136-145)
--- NOTE | 2018-10-04 19:31 | ED.VISSUMM ---
- ER Visit Summary Date of Service: 10/04/18 Chief Complaint: Whole body is numb History of Present Illness: The patient is a 68 M who tells me his whole body is numb. This is been ongoing for 2 months. He states from his feet all the way up to his shoulders that he is completely numb. He states he feels like he has to pee at the tip of his penis that he sits down and he pees. He did admit to one episode of bowel incontinence yesterday. He was admitted for the same exact thing in the middle of August without a diagnosis. He followed up with multiple doctors without a diagnosis. He is scheduled to see a neurologist on October 17. He states he has fallen a couple of times at home without any injuries except for his hips which is been x-rayed multiple times without any injuries. Physical Examination: Vital signs reviewed. HEENT exam unremarkable. Heart is regular rate and rhythm without murmurs. Lungs are clear to auscultation. Abdomen is soft and nontender. Extremities reveal no edema. Skin exam normal. Neurologic exam shows minimal effort with raising his legs. His strength is 2 out of 5. He states that he does have paresthesias of his entire body. Test Results: Laboratory studies are unremarkable. Urinalysis negative. Emergency Department Course and Treatment: I am unclear the etiology of the patient's symptoms. He had a full work-up for this a month ago so I do not feel that admission to the hospital is necessary at this time. I had our director of social work evaluate the patient. He denied wanting home health because he states he has had this before and they did not do anything for him. He denies assisted living or going to a longterm over his body. At this point we have nothing else to offer him from the emergency department. He will be discharged to follow-up with his neurologist on October 17. I recommended that he try to get an earlier appointment. I will give him Tylenol for pain. Treatment Plan: [] Disposition: Discharge Impression: Paresthesias, bilateral leg weakness This note was generated with [employer] dictation software. It may contain incorrect words, spelling, and punctuation that were not noted in review of the chart prior to signing ED Disposition - Plan for ED Patient: Referrals: Ale Pepe MD [Primary Care Provider] -
--- NOTE | 2018-10-04 20:00 | CM.ED ---
Social Work Referral: Resources Informant: Dr. Posada Chief Complaint: Patient reporting to be weak and numb all over. Living Arrangements: Patient lives alone. Supports: Patient reporting to have limited support from family. Patient stating that patient daughter is currently not talking with patient. Patient reporting to have good neighbors that are supportive and that everyone watches out for each other. Mental Health History: Patient reporting a history of depression and Bi-polar and to manage mental health with medication. Patient denies any counseling services but to have a case aide through [facility], Tiffani Fuentes. Dr. Sue is who prescribes patient medications per patient. Patient denies any suicidal thoughts or plans. Resources: Patient reporting to utilize food li and [employer]. This social work supervisor broaching topic of [facility]SPORT services to assist patient within the home. Patient is agreeable to this social work supervisor making referral to [facility]SP[facility]. This social work supervisor also noting that patient has had home health services in the past per patient chart, patient declining home health care. Patient reporting to have fallen 30 times in the past 3 months. This social work supervisor broaching topic of assisted living or intermediate for patient, patient declining both services stating that patient will never be leaving patient home. Patient reporting to have a diagnosis of Parkinsonism and to have next neurologist appointment on October [address] Feliz. Presentation: Patient presenting with a flat affect and frustration with current numbness patient does not believe the numbness is due to Parkinsonism. Patient believes that there is something else going on with patient due to patient speaking with neighbor that also has Parkinsonism and that the neighbor does not have the numbness. This social work supervisor recommending for patient to follow up with neurologist on October 17 to assess this further. Interventions: PASSPORT service referral. PASSPORT service referral faxed. PLAN: Patient plans to discharge to home alone. Pauline CASIANO, ARI
[2018-10-04 20:09] LABS: Bacteria 0 SEEN /hpf (None Seen); Mucous, Urine 0 SEEN /hpf (<or=2+); Squamous Epithelial Cells - UA 0 SEEN /hpf (0-5)
[2018-10-04 20:11] LABS: Color, Urine Yellow (Yellow); Glucose, Dipstick Normal (Normal); Ketone-Dipstick Negative (Negative); Leukocyte Esterase-Dipstick Negative /ul (Negative); Nitrite-Dipstick Negative (Negative); Occult Blood-Urine Negative /ul (Negative); Protein-Dipstick Negative (Negative); Urine Bilirubin Dipstick Negative (Negative); Urine Clarity Clear (Clear); Urine Urobilinogen Normal (Normal); Urine pH 6.5 (5.0 - 8.0)
[2018-10-04 20:17] LABS: White Blood Cells 0-5 SEEN /hpf (0-5)
[2018-10-04 20:18] LABS: Red Blood Cells-Urine 0-5 SEEN /hpf (0-5)
[2018-10-04 20:19] VITALS: BP 138/81; O2SAT 96
--- NOTE | 2018-10-04 20:30 | ED.DEP ---
ED Disposition - Plan for ED Patient: Disposition: Home or Assisted Living Instructions: WEAKNESS, Unk Cause Prescriptions: Acetaminophen [Tylenol Extra Strength] 500 mg PO Q4H PRN PRN #30 tab PRN Reason: Pain Prescription Printed Referrals: Ale Pepe MD [Primary Care Provider] -
== END 2018-10-04 20:50 | disposition home or self-care (01) ==
PROVIDERS: Emergency Provider Emergency Medicine; Family Provider Internal Medicine; PCP Internal Medicine
DX: R20.0 Anesthesia of skin (principal); M62.81 Muscle weakness (generalized); I10 Essential (primary) hypertension; J44.9 Chronic obstructive pulmonary disease, unspecified; K21.9 Gastro-esophageal reflux disease without esophagitis; G20 Parkinson's disease; F32.9 Major depressive disorder, single episode, unspecified; G62.9 Polyneuropathy, unspecified; Z79.899 Other long term (current) drug therapy
CPT/HCPCS: 80053; 81001; 85025; 99285; P9612

== ENCOUNTER → 2019-05-11 10:47 | Outpatient (CLI) | payer MEDICARE, SELFPAY ==
[2019-05-11 10:07] VITALS: BMI 21.7
[2019-05-11 12:26] LABS: Absolute Lymphocyte Count 1.63 X10^3/uL (0.83-4.51); Absolute Neutrophil Count 4.3 X10^3/uL (2.0-7.7); Basophil% 1.4 % (0-1); Eosinophil# 0.29 X10^3/uL; Hematocrit 44.6 % (40-54); Lymphocyte # 1.63 X10^3/ul (4.0); Lymphocyte % 22.7 % (19-41); Mean Corp Hgb Conc 31.4 g/dL (32-36); Mean Corpuscular Hgb 28.3 pg (27.0-32.0); Mean Corpuscular Volume 90.1 fL (80-94); Mean Platelet Vol. 9.6 fl (6.2-12.0); Monocyte# 0.78 X10^3/uL; Monocyte% 10.9 % (0-10); NRBC Flagged by Analyzer 0 % (0-5); Neutrophil # 4.34 X10^3/uL (2.7-7.7); Neutrophil % 60.4 % (47-70); Platelet Count 311 K/mm3 (150-450); RBC Distribution Width CV 15.6 % (11.6-14.6); RBC Distribution Width SD 52.1 fl (35.1-43.9); Red Blood Count 4.95 M/mm3 (4.6-6.2); White Blood Count 7.2 K/mm3 (4.4-11.0)
[2019-05-11 13:05] LABS: ALB/GLOB Ratio 0.9 RATIO (0.9-2.4); AST(SGOT) 13 U/L (15-37); Alanine Aminotransfer ALT/SGPT 21 U/L (16-61); Albumin, Serum 3.8 g/dL (3.2-5.0); Alkaline Phosphatase 148 U/L (45-117); Anion Gap 5 (5-15); BUN 9 mg/dL (7-18); BUN/Creat Ratio 6.2 RATIO (10-20); Calcium,Total 9.4 mg/dL (8.5-10.1); Chloride 106 mmol/L (98-107); Cholesterol 201 mg/dL (200); Creatinine, Serum 1.46 mg/dL (0.70-1.30); EST Glomerular Filtration Rate 51 mL/min (>60); Est Glom Filt Rate - Afr Amer 62 mL/min (>60); Globulin 4.3 g/dL (2.2-4.2); Glucose 102 mg/dL (74-106); High Density Lipoprotein 35 mg/dL; Potassium 3.8 mmol/L (3.5-5.1); Protein, Total 8.1 g/dL (6.4-8.2); Sodium Level 137 mmol/L (136-145); Triglycerides 763 mg/dL
== END ==
PROVIDERS: PCP Internal Medicine; Referring Provider Internal Medicine; Visit Provider Internal Medicine
DX: I10 Essential (primary) hypertension (principal); K64.9 Unspecified hemorrhoids
CPT/HCPCS: 36415; 80053; 80061; 85025

== ENCOUNTER → 2019-09-22 13:34 | Outpatient (CLI) | payer MEDICARE, SELFPAY ==
[2019-08-10 12:11] VITALS: BMI 21.7
[2019-09-08 11:09] VITALS: BMI 21.7
[2019-09-22 12:45] VITALS: BMI 24.3
--- NOTE | 2019-09-22 13:36 | CT_ITS ---
STUDY: LOW DOSE CT LUNG CANCER SCREENING REASON FOR EXAM: Male, 69 years old. LUNG CANCER SCREENING -- 1.5 PPD X49 YEARS -- HX-COPD, PROSTATE CA, HTN RADIATION DOSAGE (If Supplied By Facility): CTDIvol = ( 3.02 ) mGy, DLP = ( 95.15 ) mGycm TECHNIQUE: No contrast was administered. Low dose technique was utilized (average mAS-38 and kVp 120). 1.25 mm axial source images with a slice interval of 1.25-mm were reconstructed in lung windows. 2.5 mm axial source images with a slice interval of 2.5-mm were reconstructed in lung windows. 5.0 mm axial source images with a slice interval of 5.0-mm were reconstructed in soft tissue windows. Nodule measured using lung windows on PACS and/or independent workstation with automated measurement of minimum and maximum diameter. Nodule measurement reported as average diameter rounded to the nearest whole number. Growth is defined as an increase ins size of greater than 1.5 mm. COMPARISON: Comparison is made with prior study dated April 09, 2018. NODULES: 6 mm calcified granuloma in the anterior aspect of the right upper lobe. Emphysema: Volume loss in the left hemithorax. Increased markings with areas of the confluence and infiltration in the posterior medial segment of the left lower lobe. There is evidence of mild degree of bronchiectasis. There is thickening of the left major fissure at that level. This most likely represents fibrosis. This is unchanged. Stable bilateral apical scarring. Mild emphysematous changes. Aorta: Mild atherosclerotic changes of the thoracic aorta. Coronary arteries: Unremarkable. Heart: Unremarkable Mediastinal nodes: Small benign-appearing mediastinal lymph nodes. Other chest and abdominal findings: Moderate sized hiatal hernia. CT/Low Dose CT Lung Screening IMPRESSION: Lung-RADS category 2 - Continue annual screening with LDCT in 12 months. IMPORTANT NOTES FOR USE: ACR Lung-RADS Version 1.0 Assessment Categories Release Date: August 10, 2013 Category: Coded 0-4 bases on nodule(s) with highest degree of suspicion. Negative screen is defined as categories 1 and 2; a positive screen is defined as categories 3 and 4. Category 3 and 4A nodules that are unchanged on interval CT should be coded as category 2, and individuals returned to screening in 12 months. Category 4X: Category 3 or 4 nodules with additional imaging findings that increase the suspicion of lung cancer, such as spiculation, GGN that doubles in size in 1 year, enlarged lymph notes, etc. Category Modifiers: S (significant finding unrelated to lung cancer) and C (prior history of treated lung cancer) may be added to the 0-4 Lung-RADS Electronically Signed: Matt Mckinnon, at 14:18 EDT , Service support ,
== END ==
PROVIDERS: PCP Internal Medicine; Referring Provider Nurse Practitioner Family; Visit Provider Nurse Practitioner Family
DX: Z87.891 Personal history of nicotine dependence (principal); Z12.2 Encounter for screening for malignant neoplasm of respiratory organs
CPT/HCPCS: G0297

== ENCOUNTER → 2019-11-09 09:57 | Outpatient (CLI) | payer MEDICARE, SELFPAY ==
[2019-10-28 12:18] VITALS: BMI 24.3
== END ==
PROVIDERS: PCP Internal Medicine; Referring Provider Internal Medicine; Visit Provider Internal Medicine
DX: Z20.828 Contact with and (suspected) exposure to other viral communicable diseases (principal)
CPT/HCPCS: 87635; 94799; U0003

== ENCOUNTER → 2020-01-27 14:45 | Outpatient (CLI) ==
[2020-01-27 17:05] LABS: ALB/GLOB Ratio 1.1 RATIO (0.9-2.4); AST(SGOT) 19 U/L (15-37); Alanine Aminotransfer ALT/SGPT 28 U/L (16-61); Albumin, Serum 4.2 g/dL (3.2-5.0); Alkaline Phosphatase 91 U/L (45-117); Anion Gap 6 (5-15); BUN 10 mg/dL (7-18); BUN/Creat Ratio 6.2 RATIO (10-20); Calcium,Total 9.6 mg/dL (8.5-10.1); Chloride 105 mmol/L (98-107); Cholesterol 100 mg/dL (200); EST Glomerular Filtration Rate 46 mL/min (>60); Est Glom Filt Rate - Afr Amer 55 mL/min (>60); Globulin 3.9 g/dL (2.2-4.2); Glucose 93 mg/dL (74-106); High Density Lipoprotein 43 mg/dL; Potassium 4.3 mmol/L (3.5-5.1); Protein, Total 8.1 g/dL (6.4-8.2); Sodium Level 140 mmol/L (136-145); Triglycerides 162 mg/dL; Very Low Density Lipoprotein 32 mg/dL (5-40)
== END ==
LOC: BIMLAB 14:46
PROVIDERS: PCP Internal Medicine; Referring Provider Internal Medicine; Visit Provider Internal Medicine
DX: I10 Essential (primary) hypertension (principal); E78.5 Hyperlipidemia, unspecified
CPT/HCPCS: 36415; 80053; 80061

== ENCOUNTER → 2020-03-18 18:02 | Outpatient (CLI) | payer MEDICARE, SELFPAY | PROVIDERS: PCP Internal Medicine; Referring Provider Nurse Practitioner Family; Visit Provider Nurse Practitioner Family | DX: R05 Cough (principal) | CPT/HCPCS: 87635; C9803; U0003 ==

== ENCOUNTER → 2020-07-27 11:08 | Outpatient (CLI) | payer MEDICARE, MEDICAID, SELFPAY ==
[2020-07-27 10:29] VITALS: BMI 24.5
[2020-07-27 13:08] LABS: Anion Gap 3 (5-15); BUN 15 mg/dL (7-18); BUN/Creat Ratio 9.7 RATIO (10-20); Calcium,Total 9.3 mg/dL (8.5-10.1); Chloride 105 mmol/L (98-107); Creatinine, Serum 1.55 mg/dL (0.70-1.30); EST Glomerular Filtration Rate 48 mL/min (>60); Est Glom Filt Rate - Afr Amer 57 mL/min (>60); Glucose 92 mg/dL (74-106); Potassium 4.1 mmol/L (3.5-5.1); Sodium Level 139 mmol/L (136-145)
== END ==
PROVIDERS: PCP Internal Medicine; Referring Provider Internal Medicine; Visit Provider Internal Medicine
DX: I10 Essential (primary) hypertension (principal)
CPT/HCPCS: 36415; 80048

== ENCOUNTER → 2020-09-28 11:21 | Outpatient (CLI) | payer MEDICARE, MEDICAID, SELFPAY ==
[2020-09-28 10:43] VITALS: BMI 24.5
[2020-09-28 13:06] LABS: Anion Gap 6 (5-15); BUN 12 mg/dL (7-18); BUN/Creat Ratio 8.5 RATIO (10-20); Calcium,Total 9.5 mg/dL (8.5-10.1); Chloride 104 mmol/L (98-107); Creatinine, Serum 1.41 mg/dL (0.70-1.30); EST Glomerular Filtration Rate 53 mL/min (>60); Est Glom Filt Rate - Afr Amer 64 mL/min (>60); Glucose 95 mg/dL (74-106); Potassium 4.4 mmol/L (3.5-5.1); Sodium Level 136 mmol/L (136-145)
== END ==
PROVIDERS: PCP Internal Medicine; Referring Provider Internal Medicine; Visit Provider Internal Medicine
DX: I10 Essential (primary) hypertension (principal)
CPT/HCPCS: 36415; 80048

== ENCOUNTER → 2021-02-28 12:33 | Outpatient (CLI) | payer MEDICARE, MEDICAID, SELFPAY ==
--- NOTE | 2021-02-28 12:34 | CT_ITS ---
STUDY: LOW DOSE CT LUNG CANCER SCREENING REASON FOR EXAM: Male, 70 years old. Lung cancer screening -- 75 pk yr hx;asymptomatic; current smoker RADIATION DOSAGE (If Supplied By Facility): CTDIvol = ( 3.02 ) mGy, DLP = ( 108.35 ) mGycm TECHNIQUE: No contrast was administered. Low dose technique was utilized (average mAS-38 and kVp 120). 1.25 mm axial source images with a slice interval of 1.25-mm were reconstructed in lung windows. 2.5 mm axial source images with a slice interval of 2.5-mm were reconstructed in lung windows. 5.0 mm axial source images with a slice interval of 5.0-mm were reconstructed in soft tissue windows. Nodule measured using lung windows on PACS and/or independent workstation with automated measurement of minimum and maximum diameter. Nodule measurement reported as average diameter rounded to the nearest whole number. Growth is defined as an increase ins size of greater than 1.5 mm. COMPARISON: Comparison is made with prior study dated 09/22/2019. NODULES: Once again, there is a 6 mm calcified granuloma in the anterior aspect of the right upper lobe. Emphysema: Hyperinflation. Emphysematous changes with scarring at both lung apices. Stable mild degree of scarring at the left lung base with pleural-based density in the posterior medial segment of the left lower lobe. This may represent round atelectasis. Endobronchial lesion: None Aorta: Atherosclerotic plaque formation of the aortic arch. Coronary arteries: Unremarkable. Heart: Unremarkable Pulmonary artery: Unremarkable Mediastinal nodes: Small benign-appearing mediastinal lymph nodes. Other chest and abdominal findings: CT/Low Dose CT Lung Screening IMPRESSION: Lung-RADS category 2 - Continue annual screening with LDCT in 12 months. IMPORTANT NOTES FOR USE: ACR Lung-RADS Version 1.1 Assessment Categories Release Date: 2018 Category: Coded 0-4 bases on nodule(s) with highest degree of suspicion. Negative screen is defined as categories 1 and 2; a positive screen is defined as categories 3 and 4. Category 3 and 4A nodules that are unchanged on interval CT should be coded as category 2, and individuals returned to screening in 12 months. Category 4X: Category 3 or 4 nodules with additional imaging findings that increase the suspicion of lung cancer, such as spiculation, GGN that doubles in size in 1 year, enlarged lymph notes, etc. Category Modifiers: S (significant finding unrelated to lung cancer) Electronically Signed: Matt Mckinnon MD at 12:59 EST , Service support ,
== END ==
PROVIDERS: PCP Internal Medicine; Referring Provider Nurse Practitioner Family; Visit Provider Nurse Practitioner Family
DX: Z12.2 Encounter for screening for malignant neoplasm of respiratory organs (principal); F17.210 Nicotine dependence, cigarettes, uncomplicated
CPT/HCPCS: 71271

== ENCOUNTER 2022-03-14 09:58 | Inpatient (IN) | payer MEDICARE, MEDICAID, SELFPAY ==
[2022-03-14] VITALS (10 sets, daily range): BP systolic 94–124; BP diastolic 63–81; PULSE 83–110; RESP 12–18; TEMP 36.2–37.1; O2SAT 96–99; BMI 20.3; BMI 21.9
--- NOTE | 2022-03-14 10:58 | EDS_ITS ---
HPI History of Present Illness Chief Complaint: General Illness Informant: patient Onset/Context/Timing Onset: Yesterday Context: Gradual Onset Timing: Intermittent Quality: Aching Location: Head Worsened by: Nothing Relieved by: Nothing Narrative Narrative: Patient presents with lightheadedness that began yesterday. Patient states that it is gradually gotten worse. Patient states he was walking to the gas station to buy himself a soda. Patient states he felt lightheaded and had difficulty walking while doing this. Patient admits to a headache. Patient states his weakness is generalized. Patient states nothing makes it worse and nothing makes it better. Patient has a history of Parkinson's disease. Patient denies any fevers or chills. [facility] Medical History (Updated 03/14/22 @ 13:[address] Adiel Obrien, ) Abnormal CT lung screening Allergic conjunctivitis of left eye Bipolar 1 disorder Bronchiectasis CKD (chronic kidney disease), stage III COPD (chronic obstructive pulmonary disease) Depression Encounter for screening for malignant neoplasm of lung in current smoker with 30 pack year history or greater Factor 5 Leiden mutation, heterozygous GERD (gastroesophageal reflux disease) History of throat cancer HTN (hypertension) Hypersomnia Intractable pain Left sided abdominal pain Numbness Paresthesias Parkinson disease Penetrating abdominal trauma Prostate cancer Recurrent deep vein thrombosis (DVT) of left lower extremity SBO (small bowel obstruction) Tobacco use Unsteady gait Urinary frequency Urinary retention Home Medications venlafaxine 150 mg capsule,extended release 24 hr 150 mg PO QHS mental health 01/11/17 [History Last Taken 08/21/18 22:00 150 mg] lamotrigine 150 mg tablet 150 mg PO QHS BIPOLAR 08/20/18 [History Last Taken 08/21/18 22:00 150 mg] albuterol sulfate 90 mcg/actuation aerosol inhaler (ProAir HFA) 1 - 2 puff inhalation Q6H PRN shortness of breath or wheezing #8.5 grams 08/04/19 [Rx Last Taken Unknown] propranolol 40 mg tablet 40 mg PO BID #180 tabs 11/02/19 [Rx Last Taken Unknown] fenofibrate 54 mg tablet 54 mg PO DAILY #90 tabs 02/12/20 [Rx Last Taken Unknown] acetaminophen 325 mg tablet (Tylenol) 325 - 650 mg PO ONCE PRN fever or pain #90 tabs 02/02/21 [Rx Last Taken Unknown] multivitamin 1 tab PO DAILY #90 tabs 02/02/21 [Rx Last Taken Unknown] ketotifen fumarate 0.025 % (0.035 %) eye drops (Allergy Eye (ketotifen)) 1 drp ophthalmic (eye) BID #5 mL 06/12/21 [Rx Last Taken Unknown] amantadine HCl 100 mg tablet 100 mg PO .COMPLEX #60 tabs 06/26/21 [Rx Last Taken Unknown] carbidopa ER 50 mg-levodopa 200 mg tablet,extended release 1 tab PO BID 06/29/21 [History Last Taken Unknown] lisinopril 20 mg tablet 20 mg PO DAILY blood pressure #90 tabs 07/13/21 [Rx Last Taken Unknown] gabapentin 250 mg/5 mL oral solution 800 mg (16 mL) PO TID nerve pain 90 days #4,320 mL 07/19/21 [Rx Last Taken Unknown] tamsulosin 0.4 mg capsule 0.4 mg PO DAILY #90 caps 07/27/21 [Rx Last Taken Unknown] hydrochlorothiazide 25 mg tablet 25 mg PO QAM #90 tabs 10/05/21 [Rx Last Taken Unknown] trazodone 150 mg tablet 150 mg PO QHS PRN Sleep #90 tabs 10/05/21 [Rx Last Taken Unknown] rivaroxaban 20 mg tablet 20 mg PO DAILY #90 tabs 10/30/21 [Rx Last Taken Unknown] esomeprazole magnesium 40 mg capsule,delayed release 40 mg PO DAILY #90 caps 11/02/21 [Rx Last Taken Unknown] fluticasone 250 mcg-salmeterol 50 mcg/dose blistr powdr for inhalation (Advair Diskus) 1 inh inhalation BID #60 ea 12/15/21 [Rx Last Taken Unknown] Allergy/AdvReac Type Severity Reaction Status Date / Time codeine Allergy Swelling Verified 03/14/22 10:04 of face and fingers ketorolac tromethamine AdvReac Nausea Verified 03/14/22 10:04 [From Toradol] sucralfate [From Carafate] AdvReac Nausea Verified 03/14/22 10:04 tramadol HCl [From Ultram] AdvReac Nausea Verified 03/14/22 10:04 Family History Uncle Cancer Father Cancer prostate COPD (chronic obstructive pulmonary disease) Mother COPD (chronic obstructive pulmonary disease) Hypertension Surgical History (Updated 03/14/22 @ 13:[address] Saskia Cameron MD) H/O abdominal surgery history of 4 knee surgeries History of appendectomy History of back surgery History of cervical spinal surgery history of hand and wrist surgery History of rotator cuff surgery history of three hernia repairs History of throat surgery History of tonsillectomy and adenoidectomy Social History (Updated 03/14/22 @ 13:[address] Saskia Cameron MD) household members: none Smoking Status: Current every day smoker tobacco type: cigarettes Smoking packs per day: 0.75 Smoking cigarettes per day: 15.0 Tobacco: How many years used: 49 Electronic Cigarette Use: not used second hand exposure: Yes (both parents smoked) alcohol intake: never substance use type: does not use what type of physical activity do you participate in: walking frequency: daily ROS ROS ED Constitutional Constitutional ED: Denies chills or fever(s) Eyes Eyes: Denies blurry vision or change in vision ENT ENT ED: Denies rhinorrhea or sore throat Cardiovascular Cardiovascular: Denies chest pain or palpitations Respiratory/Chest Respiratory/Chest: Denies cough or dyspnea Gastrointestinal Gastrointestinal: Denies nausea or vomiting Genitourinary Genitourinary ED: Denies dysuria or hematuria Musculoskeletal Musculoskeletal: Reports neck pain; Denies back pain Integumentary Denies abscess or rash Neurologic Neurologic: Denies headache(s) or weakness Allergic/Immunologic Allergic/Immunologic ED: Denies mouth swelling or urticaria EXAM Physical Exam Const Vital Signs: 03/14/22 10:00 03/14/22 12:53 03/14/22 13:35 Temperature 97.2 F L Temperature Source Temporal Pulse Rate 100 85 Pulse Rate [Lying] 92 Pulse Rate [Sitting (for 1 minute prior to obtaining)] 98 Pulse Rate [Standing (for 1 minute prior to obtaining)] 110 H Respiratory Rate 18 12 Blood Pressure 112/79 106/65 Blood Pressure [Lying] 94/64 Blood Pressure [Sitting (for 1 minute prior to obtaining)] 124/72 H Blood Pressure [Standing (for 1 minute prior to obtaining)] 111/73 Blood Pressure Mean 90 78 Blood Pressure Mean [Lying] 74 Blood Pressure Mean [Sitting (for 1 minute prior to obtaining)] 89 Blood Pressure Mean [Standing (for 1 minute prior to obtaining)] 85 Pulse Ox 99 97 Oxygen Delivery Method Room Air Room Air Positive well nourished and well developed General Appearance ED: well developed and NAD HEENT Reports moist mucous membranes Neck supple and no JVD Resp normal respiratory effort and clear to auscultation bilaterally Cardio regular rate, regular rhythm and no murmurs GI normal to inspection, nondistended, normoactive bowel sounds and non-tender Palpation: soft Extremity normal to inspection General Extremety ED: Negative for edema or tenderness General Extremity: Negative for edema Neuro oriented x3, CN's II-XII intact bilaterally and no sensory deficits noted Sensorium / Orientation: alert Motor Exam: strength 5/5 throughout Psych mental status grossly normal Skin no rashes or lesions noted MDM MDM MDM Narrative Medical decision making narrative: Patient was given IV fluids. CBC was within normal limits. Comprehensive metabolic profile shows a BUN of 51 and creatinine 4.0. These are increased from previous results. High-sensitivity troponin was normal. Urinalysis was ordered but the patient has not been able to provide a urine specimen yet. Orthostatic vital signs were obtained and were negative. CT scan of the brain was obtained. There is no acute intracranial abnormality. This was interpreted by the radiologist and reviewed by myself. Case was discussed with the hospitalist. Urine was obtained by straight cath. Lamotrigine level was added. Patient will be admitted to the hospital. Patient understood and was agreeable with the plan. All questions were answered. Lab Data Labs: Laboratory Results - last 24 hr 03/14/22 03/14/22 11:40 11:40 WBC 6.1 RBC 4.77 Hgb 14.7 Hct 43.3 MCV 90.8 MCH 30.8 MCHC 33.9 RDW Std Deviation 45.1 H RDW Coeff of Adele 13.4 Plt Count 234 MPV 9.1 Immature Gran % (Auto) 0.300 Neut % (Auto) 65.6 Lymph % (Auto) 22.2 [place] % (Auto) 9.0 Eos % (Auto) 1.6 Baso % (Auto) 1.3 H Absolute Neuts (auto) 4.0 Absolute Lymphs (auto) 1.35 Nucleated RBC % 0 Sodium 134 L Potassium 3.4 L Chloride 99 Carbon Dioxide 26.0 Anion Gap 9 BUN 51 H Creatinine 4.00 H Estim Creat Clear Calc 16.54 Est GFR (MDRD) Af Amer 19 L Est GFR (MDRD) Non-Af 16 L BUN/Creatinine Ratio 12.8 Glucose 115 H Calcium 9.5 Total Bilirubin 0.80 AST 12 L ALT 21 Alkaline Phosphatase 96 Troponin I High Sens 18 Total Protein 8.3 H Albumin 4.3 Globulin 4.0 Albumin/Globulin Ratio 1.1 Radiography Diagnostic Testing: Clinical Impression(s) from Imaging Studies Brain CT 03/14/22 11:00 IMPRESSION: Chronic involutional changes of the brain. Electronically Signed: Matt Mckinnon MD at 13:37 EST , Discharge Plan Triage Chief Complaint: General Illness ED Provider: Adiel Obrien Dx/Rx/DC Orders Clinical Impression: Acute kidney injury, Parkinson disease, Lightheadedness Prescriptions: No Action acetaminophen [Tylenol] 325 mg tablet 325 - 650 mg PO ONCE PRN (Reason: fever or pain) Qty: 90 0RF Rx Instructions: Take 1-2 tablets by mouth every 4-6hours as needed for pain or fevers multivitamin Tablet 1 tab PO DAILY Qty: 90 3RF amantadine HCl 100 mg tablet 100 mg PO .COMPLEX Qty: 60 4RF Rx Instructions: 100 mg PO daily for 1 week then 100 mg twice daily thereafter. ketotifen fumarate [Allergy Eye (ketotifen)] 0.025 % (0.035 %) drops 1 drp ophthalmic (eye) BID Qty: 5 0RF Rx Instructions: administer at least 8 hours apart carbidopa-levodopa 50-200 mg tablet extended release 1 tab PO BID venlafaxine 150 MG capsule 150 mg PO QHS lamotrigine 150 mg tablet 150 mg PO QHS Label Comments: Take 1 tablet by mouth once a day albuterol sulfate [ProAir HFA] 90 mcg/actuation HFA aerosol inhaler 1 - 2 puff inhalation Q6H PRN (Reason: shortness of breath or wheezing) Qty: 8.5 1RF propranolol 40 mg tablet 40 mg PO BID Qty: 180 3RF fenofibrate 54 mg tablet 54 mg PO DAILY Qty: 90 2RF lisinopril 20 mg tablet 20 mg PO DAILY Qty: 90 3RF gabapentin 250 mg/5 mL solution 800 mg PO TID 90 Days Qty: 4320 3RF tamsulosin 0.4 mg capsule 0.4 mg PO DAILY Qty: 90 3RF hydrochlorothiazide 25 mg tablet 25 mg PO QAM Qty: 90 2RF trazodone 150 mg tablet 150 mg PO QHS PRN (Reason: Sleep) Qty: 90 1RF rivaroxaban 20 mg tablet 20 mg PO DAILY Qty: 90 1RF esomeprazole magnesium 40 mg capsule,delayed release(DR/EC) 40 mg PO DAILY Qty: 90 1RF fluticasone propion-salmeterol [Advair Diskus] 250-50 mcg/dose blister with device 1 inh INHALATION BID Qty: 60 3RF Primary Care Provider: Ale Pepe Referrals: Ale Pepe MD [Primary Care Provider] - Disposition Disposition: Acute Care Hospital [facility]
--- NOTE | 2022-03-14 11:00 | CT_ITS ---
STUDY: CT BRAIN WITHOUT CONTRAST REASON FOR EXAM: Male, 71 years old. Headache and confusion, parkinson''s RADIATION DOSAGE (If Supplied By Facility): CTDIvol = ( 44.99 ) mGy, DLP = ( 829.85 ) mGycm TECHNIQUE: Transaxial CT imaging of the brain was performed without administration of intravenous contrast material. Individualized dose optimization techniques were used for this CT. COMPARISON: Comparison is made with prior study of August 2018. FINDINGS: Normal soft tissue structures. Normal calvarium. There is mild cerebral atrophy with widening of the extra-axial spaces and ventricular dilatation. Normal white matter tracts of the cerebral hemispheres. Normal basal ganglia and thalami. Normal brainstem. Normal cerebellum. There is no intracranial hemorrhage. There are no findings of an acute ischemic infarction. Atherosclerotic calcific plaques of the cavernous portions of the internal carotid arteries bilaterally. Normal visualized paranasal sinuses. CT/Brain/Head without Contrast IMPRESSION: Chronic involutional changes of the brain. Electronically Signed: Matt Mckinnon MD at 13:37 EST ,
--- NOTE | 2022-03-14 11:21 | CM.ED ---
Social Work Consult: Resources/discharge planning Referral source: Nursing staff. Chief Complaint: Patient reports to have no food in the home and to have not eaten in about a week. Patient then states to have eaten macaroni yesterday. Marital/Social History: Single Living Situation: Private home. Lives alone. Support/Resources: Patient reports to utilize [employer], [employer], and to be active with counseling services through [facility] and sees Roxana Sanches N.P. for medication management and has Tiffani Fuentes as a case operator. Patient reports to also be followed by case operator, Nancy Whitney at [employer]. Patient believes to have [employer] services and to have had an aide in the past and it just did not work out. Patient unsure of [employer] case operator. History: Did not assess Education/Employment History: Retired. 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 Patient denies issues with comprehension or understanding. Transportation: Patient no longer drives. Patient reports to utilize local taxi services but to currently be out of money for the month and unable to afford transportation. This drug abuse social worker inquired about taxi passes through [employer], patient states to not qualify due to patient living in [place]. Pharmacy: Patient reports to utilize [facility] and has been able to obtain medications. Specialist: Patient reports to have seen a neurologist in the past but to believe that patient does not need to have a neurologist that patient follow's up with. This drug abuse social worker educating patient on value of having neurologist to assist patient in managing Parkinson's, patient not interested in a neurologist. Home Health/MCC: Patient reports history of home health services. No history of group home placement. Prior level of functioning: Patient reports to be able to bath, dress, and care for self. Patient reports to sometimes use a cane. DME: Cane. Next of kin: Patient reports that patient daughter, Tabby Nguyen is next of kin for patient but unable to provide support for patient due to Tabby having limited transportation. Mental Health Treatment/History: Depression, Bi-polar. Patient reports to manage mental health with medication and things are going well. Risk to Self/Others: Patient denies suicidal thoughts, plans, intents or history of. Patient denies homicidal thoughts, plans, intents or history of. Mental status exam: A&Ox3 Appearance/General Behavior: Clean. Appropriate. Patient presents as well cared for. Mood/Affect: Pleasant and engaged. Communication Pattern: Responds to questions. Thought Process: Appropriate. Assessment: Met with patient in room. Introduced self and drug abuse social worker role. Patient agreeable to speak with this drug abuse social worker. Patient reports to have limited support in the community and to have no food. This drug abuse social worker inquired if patient has ever tried [employer], [employer] or food li. Patient reports to have been getting 2 boxes of food from [employer] delivered to patient home but to have stopped this service due to not liking some of the food. Patient reports to have had [employer] in the past, I don't like them. This drug abuse social worker inquired if patient would be open to this drug abuse social worker exploring [employer] for patient, patient is agreeable to this. Patient is also agreeable to this drug abuse social worker reaching out to [employer]/waiver services to inquire about patient current benefits. Patient open and agreeable to recommendations. Patient appears to be knowledgeable and involved in community services. This drug abuse social worker provided patient with information on [employer] and [employer] meals along with [facility] [employer] card. Patient states main limitations for patient are financial and limited support. Patient states to not qualify for food stamps. Telephone call to [employer], no answer. voicemail left requesting return phone call. This drug abuse social worker updated doctor on above information. Will continue to follow. Pauline CASIANO, EJ
[2022-03-14 11:44] LABS: Absolute Lymphocyte Count 1.35 X10^3/uL (0.83-4.51); Basophil# 0.08 X10^3/uL; Basophil% 1.3 % (0-1); Eosinophils% 1.6 % (0-5); Hematocrit 43.3 % (40-54); Hemoglobin 14.7 g/dL (13.0-16.5); Lymphocyte # 1.35 X10^3/ul (0.83-4.51); Lymphocyte % 22.2 % (19-41); Mean Corp Hgb Conc 33.9 g/dL (32-36); Mean Corpuscular Hgb 30.8 pg (27.0-32.0); Mean Corpuscular Volume 90.8 fL (80-94); Mean Platelet Vol. 9.1 fl (6.2-12.0); Monocyte# 0.55 X10^3/uL; NRBC Flagged by Analyzer 0 % (0-5); Neutrophil # 3.99 X10^3/uL (2.7-7.7); Neutrophil % 65.6 % (47-70); Platelet Count 234 K/mm3 (150-450); RBC Distribution Width CV 13.4 % (11.6-14.6); RBC Distribution Width SD 45.1 fl (35.1-43.9); Red Blood Count 4.77 M/mm3 (4.6-6.2); White Blood Count 6.1 K/mm3 (4.4-11.0)
[2022-03-14] MEDS: 0.9% Normal Saline 1,000 ML 1000 ML IV (11:50)
[2022-03-14 12:03] LABS: Albumin, Serum 4.3 g/dL (3.2-5.0); BUN 51 mg/dL (7-18); BUN/Creat Ratio 12.8 RATIO (10-20); EST Glomerular Filtration Rate 16 mL/min (>60); Est Glom Filt Rate - Afr Amer 19 mL/min (>60); Estimated Creatinine Clearance 16.54 ml/min; Glucose 115 mg/dL (74-106); Protein, Total 8.3 g/dL (6.4-8.2)
[2022-03-14 12:04] LABS: ALB/GLOB Ratio 1.1 RATIO (0.9-2.4); AST(SGOT) 12 U/L (15-37); Alanine Aminotransfer ALT/SGPT 21 U/L (16-61); Alkaline Phosphatase 96 U/L (45-117); Anion Gap 9 (5-15); Calcium,Total 9.5 mg/dL (8.5-10.1); Chloride 99 mmol/L (98-107); Potassium 3.4 mmol/L (3.5-5.1); Sodium Level 134 mmol/L (136-145); Troponin-I HS 18 pg/mL (3.0-78.0)
--- NOTE | 2022-03-14 13:54 | HP.PCM.HOS_ITS ---
HPI - General General Date of Admission: 03/14/22 Date of Service: 03/14/22 Chief Complaint: Lightheadedness, dizziness HPI Narrative The patient is a 71 y/o M w/ PMHx: Chronic COPD, Parkinson's Disease, Hx Prostate and Throat CA, HTN, HLD, Factor V Leiden w/ Hx Recurrent VTE, Dementia with unclear behavioral disturbance history, Anxiety and Depression/Bipolar disorder, Tobacco use, BPH w/ Hx urinary retention, GERD, Chronic peripheral n europathy/paresthesias who presents to the [facility] ED on 03/14/22 with history of lightheadedness, headache (mild frontal dull throbbing headache), attempted to walk to the store to get a soda but because of his symptoms he was unable and police had to assist him back to his home. Patient notes these symptoms have been ongoing x 2 days. He does report the symptoms more so with exertion and quick positional changes but not specifically only with these position alterations. He denies any recent nausea, emesis, diarrhea, dysuria, retention type symptoms. Work-up in the ED included T97.2, heart rate 100, BP 112/79, respiratory rate 18, 99% on room air, orthostatic vital signs performed with low 94/64 and high 124/72 and heart rate fluctuation low of 90 to high of 110 but both fluctuations elevated with standing position of note, CBC with WC 6.1, he 114.7, platelet 234 without marked shift, CMP with sodium 134, potassium 3.4, BUN/creat 51/4.0, glucose 115, hepatic profile not marked appearing, troponin 18, CT brain with chronic involutional changes. In the ED patient administered 1 L normal saline bolus. [facility] Medical History (Updated 03/14/22 @ 13:[address] Adiel Obrien, DO) Abnormal CT lung screening Allergic conjunctivitis of left eye Bipolar 1 disorder Bronchiectasis CKD (chronic kidney disease), stage III COPD (chronic obstructive pulmonary disease) Depression Encounter for screening for malignant neoplasm of lung in current smoker with 30 pack year history or greater Factor 5 Leiden mutation, heterozygous GERD (gastroesophageal reflux disease) History of throat cancer HTN (hypertension) Hypersomnia Intractable pain Left sided abdominal pain Numbness Paresthesias Parkinson disease Penetrating abdominal trauma Prostate cancer Recurrent deep vein thrombosis (DVT) of left lower extremity SBO (small bowel obstruction) Tobacco use Unsteady gait Urinary frequency Urinary retention Home Medications venlafaxine 150 mg capsule,extended release 24 hr 150 mg PO QHS mental health 01/11/17 [History Last Taken 08/21/18 22:00 150 mg] lamotrigine 150 mg tablet 150 mg PO QHS BIPOLAR 08/20/18 [History Last Taken 08/21/18 22:00 150 mg] albuterol sulfate 90 mcg/actuation aerosol inhaler (ProAir HFA) 1 - 2 puff inhalation Q6H PRN shortness of breath or wheezing #8.5 grams 08/04/19 [Rx Last Taken Unknown] propranolol 40 mg tablet 40 mg PO BID #180 tabs 11/02/19 [Rx Last Taken Unknown] fenofibrate 54 mg tablet 54 mg PO DAILY #90 tabs 02/12/20 [Rx Last Taken Unknown] acetaminophen 325 mg tablet (Tylenol) 325 - 650 mg PO ONCE PRN fever or pain #90 tabs 02/02/21 [Rx Last Taken Unknown] multivitamin 1 tab PO DAILY #90 tabs 02/02/21 [Rx Last Taken Unknown] ketotifen fumarate 0.025 % (0.035 %) eye drops (Allergy Eye (ketotifen)) 1 drp ophthalmic (eye) BID #5 mL 06/12/21 [Rx Last Taken Unknown] amantadine HCl 100 mg tablet 100 mg PO .COMPLEX #60 tabs 06/26/21 [Rx Last Taken Unknown] carbidopa ER 50 mg-levodopa 200 mg tablet,extended release 1 tab PO BID 06/29/21 [History Last Taken Unknown] lisinopril 20 mg tablet 20 mg PO DAILY blood pressure #90 tabs 07/13/21 [Rx Last Taken Unknown] gabapentin 250 mg/5 mL oral solution 800 mg (16 mL) PO TID nerve pain 90 days #4,320 mL 07/19/21 [Rx Last Taken Unknown] tamsulosin 0.4 mg capsule 0.4 mg PO DAILY #90 caps 07/27/21 [Rx Last Taken Unknown] hydrochlorothiazide 25 mg tablet 25 mg PO QAM #90 tabs 10/05/21 [Rx Last Taken Unknown] trazodone 150 mg tablet 150 mg PO QHS PRN Sleep #90 tabs 10/05/21 [Rx Last Taken Unknown] rivaroxaban 20 mg tablet 20 mg PO DAILY #90 tabs 10/30/21 [Rx Last Taken Unknown] esomeprazole magnesium 40 mg capsule,delayed release 40 mg PO DAILY #90 caps 11/02/21 [Rx Last Taken Unknown] fluticasone 250 mcg-salmeterol 50 mcg/dose blistr powdr for inhalation (Advair Diskus) 1 inh inhalation BID #60 ea 12/15/21 [Rx Last Taken Unknown] Allergy/AdvReac Type Severity Reaction Status Date / Time codeine Allergy Swelling Verified 03/14/22 10:04 of face and fingers ketorolac tromethamine AdvReac Nausea Verified 03/14/22 10:04 [From Toradol] sucralfate [From Carafate] AdvReac Nausea Verified 03/14/22 10:04 tramadol HCl [From Ultram] AdvReac Nausea Verified 03/14/22 10:04 Family History Uncle Cancer Father Cancer prostate COPD (chronic obstructive pulmonary disease) Mother COPD (chronic obstructive pulmonary disease) Hypertension Surgical History (Updated 03/14/22 @ 13:[address] Saskia Cameron MD) H/O abdominal surgery history of 4 knee surgeries History of appendectomy History of back surgery History of cervical spinal surgery history of hand and wrist surgery History of rotator cuff surgery history of three hernia repairs History of throat surgery History of tonsillectomy and adenoidectomy Social History (Updated 03/14/22 @ 14:[address] Saskia Cameron MD) household members: none Smoking Status: Current every day smoker tobacco type: cigarettes Smoking packs per day: 0.50 Smoking cigarettes per day: 10.0 Tobacco: How many years used: 49 Electronic Cigarette Use: not used second hand exposure: Yes (both parents smoked) alcohol intake: never substance use type: does not use what type of physical activity do you participate in: walking frequency: daily ROS ROS Narrative Admission Review of Systems: CONSTITUTIONAL: No weight loss, fever, chills, + weakness or fatigue. HEENT: + Mild frontal dull throbbing headache. Eyes: No visual loss, blurred vision, double vision or yellow sclerae. Ears, Nose, Throat: No hearing loss, sneezing, congestion, runny nose or sore throat. SKIN: No rash or itching, lesions, wounds. CARDIOVASCULAR: No chest pain, chest pressure or chest discomfort, palpitations, edema, orthopnea, syncopal events. RESPIRATORY: No shortness of breath, cough or sputum, wheezing, hemoptysis. GASTROINTESTINAL: No anorexia, nausea, vomiting or diarrhea, abdominal pain, melena, BRBPR. GENITOURINARY: No dysuria, frequency, urgency or retention. NEUROLOGICAL: + Mild frontal dull throbbing headache, lightheadedness and dizziness, underlying Parkinson's disease with gait imbalance/debility, tremors, chronic paresthesias/peripheral neuropathy, no paralysis, focal weakness, change in bowel or bladder control, seizure. MUSCULOSKELETAL: + muscle, back pain, joint pain or stiffness. HEMATOLOGIC: + easy bleeding or bruising. LYMPHATICS: No enlarged nodes. No history of splenectomy. PSYCHIATRIC: + history of depression or anxiety. ENDOCRINOLOGIC: No reports of sweating, cold or heat intolerance. No polyuria or polydipsia. ALLERGIES: No history of asthma, hives, eczema or rhinitis. Vital Signs Vital Signs Vital Signs: 03/14/22 10:00 03/14/22 12:53 03/14/22 13:35 Temperature 97.2 F L Temperature Source Temporal Pulse Rate 100 85 Pulse Rate [Lying] 92 Pulse Rate [Sitting (for 1 minute prior to obtaining)] 98 Pulse Rate [Standing (for 1 minute prior to obtaining)] 110 H Respiratory Rate 18 12 Blood Pressure 112/79 106/65 Blood Pressure [Lying] 94/64 Blood Pressure [Sitting (for 1 minute prior to obtaining)] 124/72 H Blood Pressure [Standing (for 1 minute prior to obtaining)] 111/73 Blood Pressure Mean 90 78 Blood Pressure Mean [Lying] 74 Blood Pressure Mean [Sitting (for 1 minute prior to obtaining)] 89 Blood Pressure Mean [Standing (for 1 minute prior to obtaining)] 85 Pulse Ox 99 97 Oxygen Delivery Method Room Air Room Air Weight Weight: 150 lb Body Mass Index (BMI) 20.3 Physical Exam Narrative Physical Examination: General: Awake, alert, oriented x 3 and cooperative, seated upright in the ED bed, fatigued appearing otherwise no acute distress, denies any current lightheadedness or dizziness. Skin: Normal color, normal turgor, no icterus, no cyanosis except occasional staged ecchymoses. HEENT: AT/NC, EOMI, PERRLA, MMM, no carotid bruits or JVD noted. Lungs: Mildly diminished, greater, appropriate, no rales, ronchi or wheezing. Heart: Currently regular rate and rhythm; no gallop, rub audible. Abdomen: Soft, NTTP, ND, mildly hyperactive BS, no HSM. Extremities: No cyanosis, clubbing, or edema. Neurological: Patient awake, alert, oriented as noted, cognitive function currently baseline intact with underlying history of Parkinson's disease with associated mild dementia; pupils equally reactive to light and accommodation, cranial nerves grossly normal, moving all 4 extremities, no focal deficits, strength moderately to severely global decrease secondary to acute presentation, mild tremor evident consistent with his Parkinson's disease. Psychiatric: Affect appears fatigued otherwise normal, no acute evidence of depressive or anxiety feelings but does have underlying history. Results Lab / Micro Data Result Diagrams: 03/14/22 11:40 03/14/22 11:40 Labs: Laboratory Results - last 24 hr 03/14/22 11:40: WBC 6.1, RBC 4.77, Hgb 14.7, Hct 43.3, MCV 90.8, MCH 30.8, MCHC 33.9, RDW Std Deviation 45.1 H, RDW Coeff of Adele 13.4, Plt Count 234, MPV 9.1, Immature Gran % (Auto) 0.300, Neut % (Auto) 65.6, Lymph % (Auto) 22.2, Gilmer % (Auto) 9.0, Eos % (Auto) 1.6, Baso % (Auto) 1.3 H, Absolute Neuts (auto) 4.0, Absolute Lymphs (auto) 1.35, Nucleated RBC % 0 03/14/22 11:40: Sodium 134 L, Potassium 3.4 L, Chloride 99, Carbon Dioxide 26.0, Anion Gap 9, BUN 51 H, Creatinine 4.00 H, Estim Creat Clear Calc 16.54, Est GFR (MDRD) Af Amer 19 L, Est GFR (MDRD) Non-Af 16 L, BUN/Creatinine Ratio 12.8, Glucose 115 H, Calcium 9.5, Total Bilirubin 0.80, AST 12 L, ALT 21, Alkaline Phosphatase 96, Troponin I High Sens 18, Total Protein 8.3 H, Albumin 4.3, Globulin 4.0, Albumin/Globulin Ratio 1.[address] 03/14/22 11:00 IMPRESSION: Chronic involutional changes of the brain. Electronically Signed: Matt Mckinnon MD at 13:37 EST , Assessment & Plan Assessment/Plan (1) Acute kidney injury: PLAN: Plan The patient is a 71 y/o M w/ PMHx: Chronic COPD, Parkinson's Disease, Hx Prostate and Throat CA, HTN, HLD, Factor V Leiden w/ Hx Recurrent VTE, Dementia with unclear behavioral disturbance history, Anxiety and Depression/Bipolar disorder, Tobacco use, BPH w/ Hx urinary retention, GERD, Chronic peripheral neuropathy/paresthesias who presents to the [facility] ED on 03/14/22 with history of lightheadedness, headache, attempted to walk to the store to get a soda but because of his symptoms he was unable and police had to assist him back to his home. Patient notes these symptoms have been ongoing x 2 days. #1. Lightheadedness, dizziness, Unclear etiology, suspect likely related with #2: Orthostatics negative, labs aside renal function not marked appearing, will admit to medical surgical floor, maintain on fall precautions, continue hydration with requested as noted #2 assessment of potential urinary retention, urinalysis also requested, obtain urine FeNa and renal US, low threshold to involve nephrology pending results, altering/holding home medications as needed based on current CrCl, PT/OT/CM consultations for discharge planning. #2. Acute kidney injury on CKD stage III, unclear subtype: Unclear etiology, admission BUN/Cr 51/four-point, prior baseline creatinine noted to be primarily 1.4-1.6. Will hydrate, hold nephrotoxic medications, assure patient is not having any urinary retention as he has had this previously and if necessary we will also obtain bladder/kidney ultrasound as well as FeNa assessment. #3. Hypokalemia: Admission K+ 3.4, exam level requested, supplementation given, repeat level in AM. #4. Chronic COPD: Temporarily hold patient home inhaler in the interim transition to ATC budesonide, PRN albuterol, HOB, IS parameters. Encourage continued decrease in tobacco usage, currently transition from three-quarter pack daily to 1/2 pack daily. #5. Hypertension: Continue home regimen propranolol, holding lisinopril and HCTZ, PRN hydralazine. #6. Parkinson's disease with associated dementia, unclear behavioral disturbance history: Continue home amantadine regimen with request for pharmacy consultaiton for altered dosing given renal fx, currently with CrCl 16 amantadine recommendation 200 mg x 1 then 100 mg following QOD only, cautiously continue home sinemet regimen. #7. Tobacco Abuse: Encouraged cessation, has cut down from three-quarter pack p er day previously down to 1/2 pack/day, inpatient consultation per RT, NR if desired, can only do lining. #8. Anxiety and depression/bipolar disorder: Given his notable TOSHA with CrCl 16, will hold venlafaxine and Lamictal regimen with lamictal level pending upon evaluation. #9. Hyperlipidemia: Continue patient home fenofibrate regimen #10. Hx Prostate and Throat CA w/ prior history of BPH, Urinary retention: Considered in remission, prior history of BPH with urinary retention, bladder scan pending per ED. #11. Factor V Leiden Mutation with history of recurrent VTE: Heterozygote status per prior report, will continue patient home Xarelto regimen with alteration for renal function. #12. GERD: PPI. #13. DVT Prophylaxis: SCDs, continue home xarelto with altered dose. #14. CODE status: Patient does not have healthcare power of divorce attorney in place but does have a living will. Discussed CODE status at length including difference between FULL code, DNR-CCA and DNR-CC status. Following discussions about the differences in these status, requested DNR-CCA, no intubation status. Advanced Care Planning Face to Face Time: 16 minutes. Charges/Coding Visit Charges Inpatient E&M: 30210 Init Hosp L3 Procedures Hospitalists Procedures: 76671 Advncd Care Plan 30 Min
[2022-03-14 13:56] LABS: Mucous, Urine 0 SEEN /hpf (<or=2+); Red Blood Cells-Urine 0 SEEN /hpf (0-5); Squamous Epithelial Cells - UA 0 SEEN /hpf (0-5)
[2022-03-14 14:04] LABS: Color, Urine Yellow (Yellow); Glucose, Dipstick Normal (Normal); Ketone-Dipstick 5 mg/dl (Negative); Leukocyte Esterase-Dipstick 100 /ul (Negative); Nitrite-Dipstick Positive (Negative); Occult Blood-Urine Negative /ul (Negative); Protein-Dipstick 30 mg/dl (Negative); Urine Clarity Clear (Clear); Urine Urobilinogen Normal (Normal); Urine pH 6.5 (5.0 - 8.0)
[2022-03-14 14:06] LABS: Urine Bilirubin Dipstick 1 mg/dL (Negative)
[2022-03-14 14:10] LABS: Bacteria 3+ /hpf (None Seen); White Blood Cells 5-10 SEEN /hpf (0-5)
[2022-03-14 14:14] LABS: Magnesium 2.7 mg/dL (1.6-2.6)
--- NOTE | 2022-03-14 14:14 | NURSING ---
324 WHITE ACUTE KIDNEY INJURY, LIGHTHEADEDNESS
--- NOTE | 2022-03-14 14:32 | CM.ED ---
Social Work Telephone call received from JC/[place], Dorinda Wilson (P: [phone]; F: [phone]). Dorinda confirms that patient is active with waiver services and has aide services approved. Dorinda reports to have set patient up with aides but patient keeps turning them away. Dorinda reports to also be aware of limited food for patient and to have attempted multiple services for patient. Patient has a medical alert. This social media community manager updated Dorinda that patient verbally agreed to a referral for [employer]. Dorinda plans to follow up with patient to set up [employer]. This social media community manager updated Dorinda that patient has been admitted to acute care setting. Dorinda request to be contact when patient discharges and to have discharge information faxed to above number. Dorinda states frustration with providing services for patient as he turns the services down. This social media community manager provided handoff to acute care social media community manager. Social Work to continue to follow. Pauline CASIANO, TOREYS
--- NOTE | 2022-03-14 14:44 | US_ITS ---
INDICATION: TOSHA EXAMINATION: Ultrasound US Kidney(s) complete (eg, kidneys and bladder) TECHNIQUE: Weinberg scale and color doppler images were obtained of the kidneys. COMPARISON: CT abdomen and pelvis 12/21/2017 FINDINGS: RIGHT KIDNEY: 13.1 x 4.8 x 4.7 cm. There is no hydronephrosis. No shadowing calculus, focal lesion or perinephric collection is demonstrated. Multiple cortical cysts, largest measures up to 3.9 cm. LEFT KIDNEY: 12.9 x 5.4 x 5.2 cm. There is no hydronephrosis. No shadowing calculus, focal lesion or perinephric collection is demonstrated. Multiple cortical cysts, largest measures up to 3.6 cm. URINARY BLADDER: Mild irregularity of the bladder wall suggesting trabeculation.. Prevoid volume 211 cc. US/Kidney and Bladder IMPRESSION: No hydronephrosis bilaterally. Bladder trabeculation. Possible element of bladder outlet obstruction. Consider cystoscopic correlation. Electronically Signed: Eugene Seay MD at 18:14 EST ,
[2022-03-14] MEDS: Potassium Chloride Oral Tablet 20 MEQ 40 MEQ PO (15:16)
[2022-03-14] MEDS: 0.9% Saline Lock 10 ML Syringe IV ×2 (15:31→18:42)
[2022-03-14] MEDS: 0.9% Normal Saline 1,000 ML 125 ML IV ×2 (16:03→19:50)
[2022-03-14 16:34] LABS: Bacteria 0 SEEN /hpf (None Seen); Mucous, Urine 0 SEEN /hpf (<or=2+); Red Blood Cells-Urine 0 SEEN /hpf (0-5); Squamous Epithelial Cells - UA 0 SEEN /hpf (0-5); White Blood Cells 0 SEEN /hpf (0-5)
[2022-03-14 16:40] LABS: Color, Urine Yellow (Yellow); Glucose, Dipstick Normal (Normal); Ketone-Dipstick Negative (Negative); Leukocyte Esterase-Dipstick 25 /ul (Negative); Nitrite-Dipstick Negative (Negative); Occult Blood-Urine Negative /ul (Negative); Protein-Dipstick Negative (Negative); Specific Gravity, Urine 1.015 (1.002-1.030); Urine Bilirubin Dipstick Negative (Negative); Urine Clarity Clear (Clear); Urine Urobilinogen Normal (Normal)
[2022-03-14] MEDS: CARBIDOPA/LEVODOPA CR 50/200 Tablet PO (16:59)
[2022-03-14] MEDS: Tamsulosin HCl 0.4 MG Capsule PO (16:59)
[2022-03-14 17:04] LABS: Urine Sodium 49 mmol/L (Not Establ.)
[2022-03-14] MEDS: Budesonide Respules 0.5 MG/2 ML AMPUL.NEB. INHALATION (19:15)
[2022-03-14] MEDS: Propranolol 40 MG Tablet PO (21:42)
[2022-03-14] MEDS: Gabapentin 300 MG Capsule PO (21:42)
[2022-03-14] MEDS: Mag Hydrox/Al Hydrox/Simeth 30 ML UDC PO (21:59)
[2022-03-15 02:48] VITALS: BP 111/66; PULSE 67; RESP 16; TEMP 36.6; O2SAT 96
[2022-03-15] MEDS: 0.9% Normal Saline 1,000 ML 125 ML IV ×2 (03:51→11:56)
[2022-03-15 06:00] LABS: Absolute Lymphocyte Count 1.47 X10^3/uL (0.83-4.51); Absolute Neutrophil Count 2.7 X10^3/uL (2.0-7.7); Basophil# 0.09 X10^3/uL; Basophil% 1.9 % (0-1); Eosinophil# 0.14 X10^3/uL; Eosinophils% 2.9 % (0-5); Hematocrit 38.7 % (40-54); Hemoglobin 12.4 g/dL (13.0-16.5); Lymphocyte # 1.47 X10^3/ul (0.83-4.51); Lymphocyte % 30.4 % (19-41); Mean Corpuscular Hgb 30.3 pg (27.0-32.0); Mean Corpuscular Volume 94.6 fL (80-94); Mean Platelet Vol. 9.6 fl (6.2-12.0); Monocyte# 0.46 X10^3/uL; Monocyte% 9.5 % (0-10); NRBC Flagged by Analyzer 0 % (0-5); Neutrophil # 2.65 X10^3/uL (2.7-7.7); Neutrophil % 54.9 % (47-70); Platelet Count 196 K/mm3 (150-450); RBC Distribution Width CV 13.6 % (11.6-14.6); RBC Distribution Width SD 47.6 fl (35.1-43.9); Red Blood Count 4.09 M/mm3 (4.6-6.2); White Blood Count 4.8 K/mm3 (4.4-11.0)
[2022-03-15] MEDS: CARBIDOPA/LEVODOPA CR 50/200 Tablet PO ×2 (06:05→16:45)
[2022-03-15 06:51] LABS: ALB/GLOB Ratio 0.8 RATIO (0.9-2.4); AST(SGOT) 13 U/L (15-37); Alanine Aminotransfer ALT/SGPT 12 U/L (16-61); Albumin, Serum 2.7 g/dL (3.2-5.0); Alkaline Phosphatase 74 U/L (45-117); Anion Gap 5 (5-15); BUN 37 mg/dL (7-18); BUN/Creat Ratio 22.4 RATIO (10-20); Calcium,Total 8.2 mg/dL (8.5-10.1); Chloride 113 mmol/L (98-107); Creatinine, Serum 1.65 mg/dL (0.70-1.30); EST Glomerular Filtration Rate 44 mL/min (>60); Est Glom Filt Rate - Afr Amer 53 mL/min (>60); Estimated Creatinine Clearance 43.01 ml/min; Globulin 3.6 g/dL (2.2-4.2); Glucose 92 mg/dL (74-106); Potassium 4.6 mmol/L (3.5-5.1); Protein, Total 6.3 g/dL (6.4-8.2); Sodium Level 136 mmol/L (136-145)
[2022-03-15 07:15] VITALS: O2SAT 90
[2022-03-15 09:00] VITALS: BP 110/70; PULSE 68; RESP 18; TEMP 36.5; O2SAT 96
[2022-03-15 09:21] VITALS: BP 110/70; PULSE 68; RESP 18; TEMP 36.5; O2SAT 96
[2022-03-15] MEDS: Gabapentin 300 MG Capsule PO (09:26)
[2022-03-15] MEDS: Pantoprazole Sodium 40 MG Tablet PO (09:26)
[2022-03-15] MEDS: Propranolol 40 MG Tablet PO (09:26)
--- NOTE | 2022-03-15 13:01 | PN.HOSP_ITS ---
Subjective Subjective Patient seen and examined. He has no active complaints today and feels well. He denies any dizziness, numbness,tingling, nausea, vomiting or diarrhea. Review of systems is otherwise negative. Objective Data Objective Data Vital Signs: Vital Signs Temp Pulse Resp BP Pulse Ox O2 Del Method 97.7 F L 68 18 110/70 96 Room Air 03/15/22 09:21 03/15/22 09:21 03/15/22 09:21 03/15/22 09:21 03/15/22 09:21 03/15/22 09:21 Oxygen Delivery Method Room Air Weight: 160 lb 14.999 oz Body Mass Index (BMI) 21.9 Intake & Output: Intake and Output for Last 24 Hours 03/13/22 03/14/22 03/15/22 23:59 23:59 23:59 Intake Total 3072.92 / 3072.92 2300 / 2300 Output Total 150 / 150 Balance 2922.92 / 2922.92 2300 / 2300 Lab / Micro Data Result Diagrams: 03/15/22 05:50 03/15/22 05:50 Labs: Laboratory Results - last 24 hr 03/14/22 11:40: Magnesium 2.7 H 03/14/22 13:55: Urine Color Yellow, Urine Clarity Clear, Urine pH 6.5, Ur Specific [place] 1.020, Urine Protein 30 H, Urine Glucose (UA) Normal, Urine Ketones 5 H, Urine Occult Blood Negative, Urine Nitrite Positive H, Urine Bilirubin 1 H, Urine Urobilinogen Normal, Ur Leukocyte Esterase 100 H, Urine RBC 0 SEEN, Urine WBC 5-10 SEEN, Ur Squamous Epith Cells 0 SEEN, Urine Bacteria 3+, Urine Mucus 0 SEEN 03/14/22 16:22: Urine Color Yellow, Urine Clarity Clear, Urine pH 5.0, Ur Specific [place] 1.015, Urine Protein Negative, Urine Glucose (UA) Normal, Urine Ketones Negative, Urine Occult Blood Negative, Urine Nitrite Negative, Urine Bilirubin Negative, Urine Urobilinogen Normal, Ur Leukocyte Esterase 25 H, Urine RBC 0 SEEN, Urine WBC 0 SEEN, Ur Squamous Epith Cells 0 SEEN, Urine Bacteria 0 SEEN, Urine Mucus 0 SEEN 03/14/22 16:22: Ur Random Sodium 49, Urine Creatinine 215.00 03/15/22 05:50: WBC 4.8, RBC 4.09 L, Hgb 12.4 L, Hct 38.7 L, MCV 94.6 H, MCH 30.3, MCHC 32.0 D, RDW Std Deviation 47.6 H, RDW Coeff of Adele 13.6, Plt Count 196, MPV 9.6, Immature Gran % (Auto) 0.400, Neut % (Auto) 54.9, Lymph % (Auto) 30.4, Shannon % (Auto) 9.5, Eos % (Auto) 2.9, Baso % (Auto) 1.9 H, Absolute Neuts (auto) 2.7, Absolute Lymphs (auto) 1.47, Nucleated RBC % 0 03/15/22 05:50: Sodium 136, Potassium 4.6, Chloride 113 H, Carbon Dioxide 18.0 L , Anion Gap 5, BUN 37 H, Creatinine 1.65 H, Estim Creat Clear Calc 43.01, Est GFR (MDRD) Af Amer 53 L, Est GFR (MDRD) Non-Af 44 L, BUN/Creatinine Ratio 22.4 H , Glucose 92, Calcium 8.2 L, Total Bilirubin 0.40, AST 13 L, ALT 12 L, Alkaline Phosphatase 74, Total Protein 6.3 L, Albumin 2.7 L, Globulin 3.6, Albumin/Globulin Ratio 0.8 L Radiography Diagnostic Testing: Radiology Impression Brain CT 03/14/22 11:00 IMPRESSION: Chronic involutional changes of the brain. Electronically Signed: Matt Mckinnon MD at 13:37 EST , Renal Ultrasound 03/14/22 14:44 IMPRESSION: No hydronephrosis bilaterally. Bladder trabeculation. Possible element of bladder outlet obstruction. Consider cystoscopic correlation. Electronically Signed: Eugene Seay MD at 18:14 EST , Physical Exam Const alert, oriented x3 and no apparent distress HEENT head/scalp atraumatic, moist oral mucous membranes and oropharynx normal Head and Scalp: normocephalic Mouth: oral and palatal mucosa normal Eyes PERRL and EOMs intact bilaterally Neck no lymphadenopathy and supple Resp normal respiratory effort and no retractions Cardio regular rate, regular rhythm, S1 normal heart sound, S2 normal heart sound and no murmurs GI normal to inspection, nondistended, normoactive bowel sounds, soft to palpation, non-tender and non-distended Extremity normal to inspection, full ROM and no clubbing, cyanosis or edema Neuro oriented x3, CN's II-XII intact bilaterally and moves all extremities Sensorium / Orientation: awake and alert Motor Exam: strength 5/5 throughout Psych affect normal Assessment & Plan Assessment/Plan (1) Acute kidney injury: (2) Lightheadedness: PLAN: Plan #TOSHA on CKD 3 * resolved. Cr is down to 1.5 which is around his baseline * encourage oral hydration. * trend cr * likely pre-renal due to decreased intake. * #Hypokalemia: resolved #Lightheadedness and dizziness: resolved #Chronic COPD: on breahting treatment with bronchodilators. Titrate oxygen to maintain sats >90% #Hypertension: on propranol. Lisinopril and HCTZ held. IV hydralazine prn #Parkinson's disease and dementia * * #Factor V Leiden mutation: has history of recurrent DVT. On xarelto #History of prostate and throat cancer: Status posttreatment #GERD: on PPI #ANxiety and depression: on venlafaxine and lamictal. These were held on admission due to TOSHA DVT prophylaxis: xarelto Charges/Coding Visit Charges Inpatient E&M: 97233 Subs Hosp L2
[2022-03-15 14:09] VITALS: BP 117/75; PULSE 68; RESP 18; TEMP 36.8; O2SAT 97
--- NOTE | 2022-03-15 14:53 | CHAPLAIN ---
Type of Pastoral Visit _x__ Initial Visit ___ Follow-up Visit ___ On-call Visit ___ General Patient Visit ___ Spiritual Assessment ___ Family Conference ___ Bereavement ___ Rapid Response ___ Code Blue ___ Other (describe below) Pastoral Care Referral From _x__ Patient ___ Family ___ Nurse ___ Physician ___ Coin Teller ___ Folder Tier ___ Other (describe below) Sacrament/Intervention _x__ Active listening ___ Anointing ___ Taoist ___ Bereavement ___ Communion _x__ Shabnam exploration ___ _x__ Life review _x__ Prayer ___ Reconciliation ___ Sacrament of Sick _x__ Supportive presence ___ Wedding ___ Other (describe below) Pastoral Comments patient is welcoming; pt refers to his ongoing Parkinsons and that he deals with life as it comes, you can't change it; pt is talkative about his life and perspectives; pt welcomes a prayer for support;
--- NOTE | 2022-03-15 15:51 | CASEMGMT ---
Social work SW in to check on pt and discuss food insecurities. SW provided pt with list of food pantries and the [facility] card for additional food resources. Pt asked for SW assistance in checking SS check balance. Pt unsure how to work smart phone properly and has some limitations with technology. SW able to assist pt with checking balance of [employer] card, where SS check balance is deposited. Pt grateful to see balance was uploaded successfully today. Pt declined to discuss other options for food insecurities. Stated friend, Zane, would assist with grocery shopping tomorrow when pt is discharged. La Mcnamara, EARL
[2022-03-15] MEDS: Tamsulosin HCl 0.4 MG Capsule PO (16:45)
[2022-03-15] MEDS: Rivaroxaban 15 MG Tablet PO (16:45)
--- NOTE | 2022-03-15 18:22 | NURSING ---
Called and spoke with daughter Tabby Nguyen [phone] and informed her that her father left AMA and arranged his ride with [employer] [place] and went home. Informed her that he got very emotional and behavior became more upset as evening time approached.
--- NOTE | 2022-03-16 07:20 | DS.PCM_ITS ---
Providers Date of Admission: 03/14/22 Date of Discharge: 03/15/22 Primary Care Physician: Dr. Ale Pepe MD Reason For Visit: TOSHA Diagnosis Discharge Diagnosis (1) Acute kidney injury: Status: Acute Code(s): N17.9 - Acute kidney failure, unspecified (2) Lightheadedness: Status: Acute Code(s): R42 - Dizziness and giddiness Plan #TOSHA on CKD 3 * resolved. Cr is down to 1.5 which is around his baseline * encourage oral hydration. * trend cr * likely pre-renal due to decreased intake. * #Hypokalemia: resolved #Lightheadedness and dizziness: resolved #Chronic COPD: on breahting treatment with bronchodilators. Titrate oxygen to maintain sats >90% #Hypertension: on propranol. Lisinopril and HCTZ held. IV hydralazine prn #Parkinson's disease and dementia * * #Factor V Leiden mutation: has history of recurrent DVT. On xarelto #History of prostate and throat cancer: Status posttreatment #GERD: on PPI #ANxiety and depression: on venlafaxine and lamictal. These were held on admission due to TOSHA DVT prophylaxis: xarelto Medications at Discharge Home Medications venlafaxine 150 mg capsule,extended release 24 hr 150 mg PO QHS mental health 01/11/17 lamotrigine 150 mg tablet 150 mg PO QHS BIPOLAR 08/20/18 albuterol sulfate 90 mcg/actuation aerosol inhaler (ProAir HFA) 1 - 2 puff inhalation Q6H PRN shortness of breath or wheezing #8.5 grams 08/04/19 propranolol 40 mg tablet 40 mg PO BID #180 tabs 11/02/19 acetaminophen 325 mg tablet (Tylenol) 325 - 650 mg PO ONCE PRN fever or pain #90 tabs 02/02/21 carbidopa ER 50 mg-levodopa 200 mg tablet,extended release 1 tab PO BID parkinsons 06/29/21 lisinopril 20 mg tablet 20 mg PO DAILY blood pressure #90 tabs 07/13/21 tamsulosin 0.4 mg capsule 0.4 mg PO DAILY #90 caps 07/27/21 trazodone 150 mg tablet 150 mg PO QHS PRN Sleep #90 tabs 10/05/21 rivaroxaban 20 mg tablet 20 mg PO DAILY #90 tabs 10/30/21 esomeprazole magnesium 40 mg capsule,delayed release 40 mg PO DAILY #90 caps 11/02/21 fluticasone 250 mcg-salmeterol 50 mcg/dose blistr powdr for inhalation (Advair Diskus) 1 inh inhalation BID #60 ea 12/15/21 Hospital Course Operations None Procedures None Summary of Care Provided Minutes Spent on Discharge: 43 Hospital Course: Patient is a 71-year-old male with a past medical history as outlined was admi tted through the ED on 03/14/2022 with a complaint of lightheadedness and headache. He had tried to walk to the store to get a soda but because of his symptoms he was unable to and the police had to be called to assist him back home. He came into the ED where he was managed for debility. Blood work done was significant for elevated creatinine and CT of the brain showed no acute intracranial pathology. He was admitted and managed for TOSHA on CKD as well as debility. He was hydrated with IV fluids and creatinine trended down to his baseline. He was able to tolerate an oral diet as well. Patient was seen on 03/15/2022 and felt well. However on the evening of 03/15/2022 patient became agitated and insisted on signing out AGAINST MEDICAL ADVICE and was not even willing to wait to be actually discharged. Patient was seen and examined on 03/15/2022. Please refer to progress note from 03/15/2022. Physical Exam Const alert, oriented x3 and no apparent distress General Appearance: cooperative and comfortable Orientation / Consciousness: awake Exam Limitations: no limitations HEENT normocephalic, head/scalp atraumatic, hearing grossly normal bilaterally, moist oral mucous membranes and oropharynx normal Mouth: oral and palatal mucosa normal Eyes PERRL and EOMs intact bilaterally Neck no lymphadenopathy and supple Resp normal respiratory effort and no retractions Cardio regular rate, regular rhythm, S1 normal heart sound, S2 normal heart sound and no murmurs GI normal to inspection, nondistended, normoactive bowel sounds, soft to palpation, non-tender and non-distended Extremity normal to inspection, full ROM and no clubbing, cyanosis or edema Skin no rashes or lesions noted Neuro oriented x3, CN's II-XII intact bilaterally and moves all extremities Sensorium / Orientation: awake and alert Motor Exam: strength 5/5 throughout Psych affect normal Weight / BMI Weight Weight: 160 lb 14.999 oz Body Mass Index (BMI) 21.9 ABG / Lab / Microbiology Data Result Diagrams: 03/15/22 05:50 03/15/22 05:50 Meaningful Use Info Meaningful Use Diagnoses (Choose all that apply): None applicable Discharge Plan Admission Admit Date/Time: 03/14/22 13:55 Attending Provider: Charlette Gary Primary Care Provider: Ale Pepe Consulting Providers: Saskia Cameron Discharge Orders/Prescriptions Prescriptions: No Action acetaminophen [Tylenol] 325 mg tablet 325 - 650 mg PO ONCE PRN (Reason: fever or pain) Qty: 90 0RF Rx Instructions: Take 1-2 tablets by mouth every 4-6hours as needed for pain or fevers carbidopa-levodopa 50-200 mg tablet extended release 1 tab PO BID venlafaxine 150 MG capsule 150 mg PO QHS lamotrigine 150 mg tablet 150 mg PO QHS Label Comments: Take 1 tablet by mouth once a day albuterol sulfate [ProAir HFA] 90 mcg/actuation HFA aerosol inhaler 1 - 2 puff inhalation Q6H PRN (Reason: shortness of breath or wheezing) Qty: 8.5 1RF propranolol 40 mg tablet 40 mg PO BID Qty: 180 3RF lisinopril 20 mg tablet 20 mg PO DAILY Qty: 90 3RF tamsulosin 0.4 mg capsule 0.4 mg PO DAILY Qty: 90 3RF trazodone 150 mg tablet 150 mg PO QHS PRN (Reason: Sleep) Qty: 90 1RF rivaroxaban 20 mg tablet 20 mg PO DAILY Qty: 90 1RF esomeprazole magnesium 40 mg capsule,delayed release(DR/EC) 40 mg PO DAILY Qty: 90 1RF fluticasone propion-salmeterol [Advair Diskus] 250-50 mcg/dose blister with device 1 inh INHALATION BID Qty: 60 3RF Referrals / Follow Up: Ale Pepe MD [Primary Care Provider] - Disposition Disposition (needs filled in before D/C Order can be placed): Against Medical Advice Charges/Coding Visit Charges Inpatient E&M: 88989 Disch Hosp
[2022-03-20 20:53] LABS: Lamotrigine (Lamictal) Level 3.4 ug/mL (2.0-20.0)
== END 2022-03-15 18:14 | disposition left against medical advice (07) | DRG 683 ==
LOC: ED 13:57 → MS3 14:15
PROVIDERS: Admitting Provider Family Medicine; Emergency Provider Emergency Medicine; PCP Internal Medicine; Visit Provider Student in an Organized Health Care Education/Training Program
DX: N17.9 Acute kidney failure, unspecified (principal); D68.51 Activated protein C resistance; G20 Parkinson's disease; J44.9 Chronic obstructive pulmonary disease, unspecified; N18.30 Chronic kidney disease, stage 3 unspecified; F31.9 Bipolar disorder, unspecified; E78.5 Hyperlipidemia, unspecified; E87.6 Hypokalemia; I12.9 Hypertensive chronic kidney disease with stage 1 through stage 4 chronic kidney disease, or unspecified chronic kidney disease; K21.9 Gastro-esophageal reflux disease without esophagitis; F17.210 Nicotine dependence, cigarettes, uncomplicated; Z66 Do not resuscitate; R42 Dizziness and giddiness; Z51.5 Encounter for palliative care; R53.81 Other malaise; Z85.46 Personal history of malignant neoplasm of prostate; Z85.89 Personal history of malignant neoplasm of other organs and systems; Z86.718 Personal history of other venous thrombosis and embolism
CPT/HCPCS: 36415; 70450; 76770; 80053; 81001; 82542; 82570; 83735; 84300; 84484; 85025; 87086; 87088; 94640; 97162; 99251; 99285; 99406; J7030; J7040; A4216; G0463

== ENCOUNTER → 2022-04-26 | Outpatient (CLI) | payer MEDICARE, MEDICAID, SELFPAY ==
[2022-04-26 12:17] LABS: Absolute Lymphocyte Count 1.32 X10^3/uL (0.83-4.51); Absolute Neutrophil Count 3.7 X10^3/uL (2.0-7.7); Basophil# 0.11 X10^3/uL; Basophil% 1.8 % (0-1); Eosinophil# 0.22 X10^3/uL; Eosinophils% 3.6 % (0-5); Hematocrit 39.2 % (40-54); Hemoglobin 12.8 g/dL (13.0-16.5); Lymphocyte # 1.32 X10^3/ul (0.83-4.51); Lymphocyte % 21.9 % (19-41); Mean Corp Hgb Conc 32.7 g/dL (32-36); Mean Corpuscular Hgb 30.4 pg (27.0-32.0); Mean Corpuscular Volume 93.1 fL (80-94); Mean Platelet Vol. 9.6 fl (6.2-12.0); Monocyte# 0.67 X10^3/uL; Monocyte% 11.1 % (0-10); NRBC Flagged by Analyzer 0 % (0-5); Neutrophil # 3.69 X10^3/uL (2.7-7.7); Neutrophil % 61.1 % (47-70); Platelet Count 288 K/mm3 (150-450); RBC Distribution Width CV 13.5 % (11.6-14.6); RBC Distribution Width SD 46.1 fl (35.1-43.9); Red Blood Count 4.21 M/mm3 (4.6-6.2)
[2022-04-26 12:29] LABS: Vitamin B12 255 pg/mL (211-911)
[2022-04-26 12:37] LABS: ALB/GLOB Ratio 1.1 RATIO (0.9-2.4); AST(SGOT) 15 U/L (15-37); Alanine Aminotransfer ALT/SGPT 19 U/L (16-61); Albumin, Serum 3.8 g/dL (3.2-5.0); Alkaline Phosphatase 76 U/L (45-117); Anion Gap 5 (5-15); BUN 17 mg/dL (7-18); BUN/Creat Ratio 12.4 RATIO (10-20); Calcium,Total 9.2 mg/dL (8.5-10.1); Chloride 109 mmol/L (98-107); Cholesterol 183 mg/dL (200); Creatinine, Serum 1.37 mg/dL (0.70-1.30); EST Glomerular Filtration Rate 55 mL/min (>60); Est Glom Filt Rate - Afr Amer 66 mL/min (>60); Globulin 3.4 g/dL (2.2-4.2); Glucose 95 mg/dL (74-106); High Density Lipoprotein 45 mg/dL; PSA,Total - Annual Screen 5.43 ng/mL (0.00-4.00); Potassium 3.6 mmol/L (3.5-5.1); Protein, Total 7.2 g/dL (6.4-8.2); Sodium Level 141 mmol/L (136-145); Thyroid Stim Hormone (TSH) 2.14 uIU/mL (0.358-3.74); Triglycerides 195 mg/dL; Very Low Density Lipoprotein 39 mg/dL (5-40)
[2022-04-29 03:06] LABS: Free Kappa Light Chains 26.7 mg/L (3.3-19.4); Free Lambda Light Chains 22.1 mg/L (5.7-26.3)
[2022-05-01 11:38] LABS: Vitamin B1, Thiamine 112.1 nmol/L (66.5-200.0)
== END | disposition home or self-care (01) ==
LOC: BIMLAB 10:03
PROVIDERS: Nurse Practitioner Family; PCP Internal Medicine; Referring Provider Psychiatry & Neurology Neurology; Visit Provider Psychiatry & Neurology Neurology
DX: N17.9 Acute kidney failure, unspecified (principal); F31.9 Bipolar disorder, unspecified; I10 Essential (primary) hypertension; R35.0 Frequency of micturition; Z85.819 Personal history of malignant neoplasm of unspecified site of lip, oral cavity, and pharynx; Z12.5 Encounter for screening for malignant neoplasm of prostate
CPT/HCPCS: 36415; 80053; 80061; 82607; 82746; 83883; 84153; 84425; 84443; 85025; G0103

== ENCOUNTER 2022-07-08 14:59 | Emergency (ER) | payer MEDICARE, MEDICAID, SELFPAY ==
[2022-07-08 15:03] VITALS: BP 102/69; PULSE 83; RESP 24; TEMP 35.9; O2SAT 94; BMI 23.3
[2022-07-08 15:10] VITALS: BP 102/69
--- NOTE | 2022-07-08 15:28 | CT_ITS ---
STUDY: CT BRAIN WITHOUT CONTRAST REASON FOR EXAM: Male, 72 years old. Confusion. Hypertension and Parkinson''s disease. Altered mental status. RADIATION DOSAGE (If Supplied By Facility): CTDIvol = ( 44.99 ) mGy, DLP = ( 907.97 ) mGycm TECHNIQUE: Transaxial CT imaging of the brain was performed without administration of intravenous contrast material. Individualized dose optimization techniques were used for this CT. COMPARISON: March 14, 2022. FINDINGS: Normal soft tissue structures. Normal calvarium. Normal size ventricles and extra-axial spaces for the patient''s age. There are areas of decreased attenuation within the white matter tracts of the supratentorial brain, consistent with microvascular disease changes. Normal basal ganglia and thalami. Normal brainstem. Normal cerebellum. There is no intracranial hemorrhage. There are no findings of an acute ischemic infarction. Normal visualized paranasal sinuses. CT/Brain/Head without Contrast IMPRESSION: Chronic involutional changes without evidence of acute intracranial or calvarial abnormality. No interval change. AID[employer] was utilized to assist in identifying pertinent positive findings in this case. Electronically Signed: London Fischer DO at 16:15 EDT Reading Location ID and State: [address] [place] [address] Tel [phone], Service support ,
--- NOTE | 2022-07-08 15:31 | EKG12_ITS ---
Test Reason : ALT MENTAL STATUS Blood Pressure : / mmHG Vent. Rate : 081 BPM Atrial Rate : 081 BPM P-R Int : 176 ms QRS Dur : 070 ms QT Int : 348 ms P-R-T Axes : 038 053 021 degrees QTc Int : 404 ms Normal sinus rhythm Normal ECG Confirmed by DEWEY WILLIAM, JULIANNE ([id number]), supervising editor trailer SANDY BABIN ([id number]) on 07/10/2022 8:36:35 AM Referred By: MOODY Confirmed By:JULIANNE PALOMO MD
[2022-07-08] MEDS: 0.9% Normal Saline 1,000 ML 1000 ML IV (15:46)
[2022-07-08 15:54] LABS: Absolute Lymphocyte Count 1.17 X10^3/uL (0.83-4.51); Basophil# 0.09 X10^3/uL; Eosinophils% 1.1 % (0-5); Lymphocyte # 1.17 X10^3/ul (0.83-4.51); Lymphocyte % 12.8 % (19-41); Mean Corp Hgb Conc 32.5 g/dL (32-36); Mean Corpuscular Hgb 30.2 pg (27.0-32.0); Mean Corpuscular Volume 92.8 fL (80-94); Mean Platelet Vol. 8.9 fl (6.2-12.0); Monocyte# 0.71 X10^3/uL; Monocyte% 7.8 % (0-10); NRBC Flagged by Analyzer 0 % (0-5); Neutrophil # 7.02 X10^3/uL (2.7-7.7); Neutrophil % 77.1 % (47-70); Platelet Count 251 K/mm3 (150-450); RBC Distribution Width CV 12.6 % (11.6-14.6); Red Blood Count 4.31 M/mm3 (4.6-6.2); White Blood Count 9.1 K/mm3 (4.4-11.0)
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
--- NOTE | 2022-07-08 16:00 | RAD_ITS ---
STUDY: X-RAY CHEST REASON FOR EXAM: Male, 72 years old. Altered mental status. TECHNIQUE: Single AP portable view of the chest. Acute abdominal series with chest, January 11, 2017. COMPARISON: None. FINDINGS: The lungs are clear and expanded. There is no demonstrated pleural abnormality. Normal size heart. Normal mediastinum and nikhil. Normal visualized pulmonary arteries. Normal visualized aortic arch and descending thoracic aorta. Stable degenerative changes and scoliosis of the thoracic spine. There is now posterior as well as anterior fusion cervical spine. Normal visualized ribs, clavicles, and shoulders. There is no demonstrated abnormality of the visualized soft tissue structures of the upper abdomen. RAD/Chest 1 View (Portable) IMPRESSION: No acute cardiopulmonary disease. Electronically Signed: London Fischer DO at 16:18 EDT ,
[2022-07-08 16:12] VITALS: BP 121/78; PULSE 81; RESP 16; O2SAT 98
[2022-07-08 16:15] LABS: Alcohol, Blood (Medical)-Serum < 3.0 mg/dL
[2022-07-08 16:16] LABS: ALB/GLOB Ratio 1.1 RATIO (0.9-2.4); AST(SGOT) 16 U/L (15-37); Alanine Aminotransfer ALT/SGPT 20 U/L (16-61); Albumin, Serum 3.6 g/dL (3.2-5.0); Alkaline Phosphatase 84 U/L (45-117); Anion Gap 2 (5-15); BUN 8 mg/dL (7-18); BUN/Creat Ratio 6.2 RATIO (10-20); Calcium,Total 8.4 mg/dL (8.5-10.1); Chloride 100 mmol/L (98-107); EST Glomerular Filtration Rate 58 mL/min (>60); Est Glom Filt Rate - Afr Amer 70 mL/min (>60); Estimated Creatinine Clearance 57.21 ml/min; Globulin 3.2 g/dL (2.2-4.2); Glucose 101 mg/dL (74-106); Protein, Total 6.8 g/dL (6.4-8.2); Sodium Level 131 mmol/L (136-145); Troponin-I HS 11 pg/mL (3.0-78.0)
[2022-07-08 16:23] LABS: Bacteria 0 SEEN /hpf (None Seen); Mucous, Urine 0 SEEN /hpf (<or=2+); Red Blood Cells-Urine 0 SEEN /hpf (0-5); Squamous Epithelial Cells - UA 0 SEEN /hpf (0-5); White Blood Cells 0 SEEN /hpf (0-5)
[2022-07-08 16:24] LABS: Color, Urine Yellow (Yellow); Glucose, Dipstick Normal (Normal); Ketone-Dipstick Negative (Negative); Leukocyte Esterase-Dipstick 25 /ul (Negative); Nitrite-Dipstick Negative (Negative); Occult Blood-Urine Negative /ul (Negative); Protein-Dipstick 15 mg/dl (Negative); Urine Bilirubin Dipstick Negative (Negative); Urine Clarity Clear (Clear); Urine Urobilinogen 1 mg/dl (Normal)
[2022-07-08 16:58] LABS: Amphetamine Urine VISTA NEGATIVE (<1000 ng/mL); Barbiturate Urine VISTA NEGATIVE (< 200 ng/mL); Benzodiazepine Urine VISTA NEGATIVE (< 200 ng/mL); Cocaine Urine VISTA NEGATIVE (< 300 ng/mL); Ecstacy Urine VISTA POSITIVE (< 500 ng/mL); Methadone Urine VISTA NEGATIVE (< 300 ng/mL); PCP Urine VISTA NEGATIVE (< 25 ng/mL); THC Urine VISTA NEGATIVE (< 50 ng/mL); Vista UDS pH Range 7
[2022-07-08 19:00] VITALS: BP 119/74; PULSE 73; RESP 16; O2SAT 98
--- NOTE | 2022-07-08 19:01 | ED.RN ---
PT INITIALLY ANSWERING ALL QUESTIONS WITH MM HMM AND STARING BLANKLY, TREMORS IN ALL EXTREMITIES. LATER PT ENGAGING IN FULL CONVERSATIONS WITH THIS RN, ABLE TO AMBULATE TO RESTROOM WITHOUT DIFFICULTY. NO TREMORS NOTED AT THIS TIME.
--- NOTE | 2022-07-08 21:20 | ED.RN ---
T[facility]IKO WITH CRISIS CALLED AND SAID THIS PATIENT HAS BEEN REFERRED TO [facility] AND RICHARD TURK.
[2022-07-08] MEDS: Venlafaxine XR 150 MG Capsule PO (21:24)
[2022-07-08] MEDS: traZODone 50 MG Tablet 150 MG PO (21:24)
[2022-07-08] MEDS: lamoTRIgine 150 MG Tablet PO (21:25)
[2022-07-08 22:00] VITALS: BP 131/81; PULSE 78; RESP 14; O2SAT 96
--- NOTE | 2022-07-08 22:01 | ED.RN ---
PT UPDATED ON DECISION TO SEEK PSYCHIATRIC EVALUATION, STATES YOU CAN'T MAKE ME STAY HERE UNLESS YOU PINK SLIP ME. THIS RN INFORMED PT THAT PINK SLIP HAD BEEN INITIATED BY MD. PT STATES OH WELL SHIT. PT ACKNOWLEDGES UNDERSTANDING OF PINK SLIP. APPEARS A&O X4 AT THIS TIME, DISCUSSING HEALTH HISTORY, NO TREMORS AT THIS TIME.
--- NOTE | 2022-07-08 22:35 | ED.RN ---
ACCEPTANCE RECEIVED FROM ALVARO CHEEMA, DR RÍOS, MARY LOU [address]
== END 2022-07-09 00:31 ==
PROVIDERS: Emergency Provider Student in an Organized Health Care Education/Training Program; PCP Internal Medicine; Visit Provider Student in an Organized Health Care Education/Training Program
DX: R41.0 Disorientation, unspecified (principal); G20 Parkinson's disease; J44.9 Chronic obstructive pulmonary disease, unspecified; F31.9 Bipolar disorder, unspecified; N18.30 Chronic kidney disease, stage 3 unspecified; I12.9 Hypertensive chronic kidney disease with stage 1 through stage 4 chronic kidney disease, or unspecified chronic kidney disease; F68.11 Factitious disorder imposed on self, with predominantly psychological signs and symptoms; F17.210 Nicotine dependence, cigarettes, uncomplicated; Z79.899 Other long term (current) drug therapy
CPT/HCPCS: 70450; 71045; 80053; 80307; 81001; 82077; 82140; 84484; 85025; 87811; 93005; 96360; 99285; A4216

== ENCOUNTER 2022-09-21 17:18 | Emergency (ER) | payer MEDICARE, MEDICAID, SELFPAY ==
[2022-09-21 17:26] VITALS: BP 135/88; PULSE 99; RESP 19; TEMP 36.6; O2SAT 99; BMI 21.4
== END 2022-09-21 18:53 | disposition left against medical advice (07) ==
LOC: ED 19:08
PROVIDERS: PCP Internal Medicine
DX: Z53.21 Procedure and treatment not carried out due to patient leaving prior to being seen by health care provider (principal)

== ENCOUNTER 2022-09-26 09:08 | Emergency (ER) | payer MEDICARE, MEDICAID, SELFPAY ==
[2022-09-26 09:09] VITALS: BP 130/85; PULSE 76; RESP 18; TEMP 35.7; O2SAT 98
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
[2022-09-26] MEDS: Ibuprofen 200 MG Tablet 400 MG PO (09:55)
== END 2022-09-26 09:58 | disposition home or self-care (01) ==
LOC: ED 09:39
PROVIDERS: Emergency Provider Emergency Medicine; PCP Internal Medicine; Visit Provider Emergency Medicine
DX: T23.161A Burn of first degree of back of right hand, initial encounter (principal); N18.30 Chronic kidney disease, stage 3 unspecified; F17.210 Nicotine dependence, cigarettes, uncomplicated; Z86.718 Personal history of other venous thrombosis and embolism; X12.XXXA Contact with other hot fluids, initial encounter
CPT/HCPCS: 99284